=== PATIENT | female | born 1950 | race Caucasian/White ===

== ENCOUNTER 2017-04-23 16:36 | Inpatient (IN) | payer MEDICARE ==
[~2017-04-23] VITALS: Ht 172.7 cm; Wt 60.0 kg
[~2017-04-23 16:36] MED LIST: ALBU8HFA PO
[2017-04-23 17:05] LABS: BASOPHILS % (AUTO) 0 % (0-1); EOSINOPHILS % (AUTO) 0 % (0-6); HEMATOCRIT 42.6 % (35.0-45.0); HEMOGLOBIN 14.1 g/dl (12.0-16.0); LYMPHOCYTES # (AUTO) 0.3 X10'3 (1.1-4.8); LYMPHOCYTES % (AUTO) 4.6 % (21-51); MEAN CORPUSCULAR HEMOGLOBIN 30.8 PG (27.0-31.0); MEAN CORPUSCULAR HGB CONC 33.1 % (33.0-36.5); MEAN CORPUSCULAR VOLUME 93.1 FL (78-98); MEAN PLATELET VOLUME 7.2 FL (7.4-10.4); MONOCYTES # (AUTO) 0.3 X10'3 (0-0.9); MONOCYTES % (AUTO) 4.7 % (2-12); NEUTROPHILS # (AUTO) 6.7 X10'3 (1.8-7.7); NEUTROPHILS % (AUTO) 90.7 % (42-75); PLATELET COUNT 172 X10'3 (140-440); RED BLOOD COUNT 4.57 X10'6 (4.20-5.60); RED CELL DISTRIBUTION WIDTH 14.6 % (11.5-14.5); WHITE BLOOD COUNT 7.4 X10'3 (4.5-11.0)
[2017-04-23 17:15] LABS: PARTIAL THROMBOPLASTIN TIME 25 SECONDS (22-32); PROTHROMBIN TIME 10.6 SECONDS (9.0-12.0)
[2017-04-23 17:20] LABS: ALANINE AMINOTRANSFERASE 15 U/L (12-78); ALBUMIN 3.8 G/DL (3.4-5.0); ALBUMIN/GLOBULIN RATIO 0.8 (1.1-1.5); ALKALINE PHOSPHATASE 100 IU/L (46-116); ANION GAP 7 (8-16); ASPARTATE AMINO TRANSFERASE 36 U/L (10-37); BILIRUBIN,TOTAL 0.3 MG/DL (0.1-1.0); BLOOD UREA NITROGEN 8 MG/DL (7-18); BUN/CREATININE RATIO 9.5 (6.6-38.0); CHLORIDE 92 MMOL/L (99-107); CREATININE 0.84 MG/DL (0.40-0.90); GLUCOSE 166 MG/DL (70-104); SODIUM 129 MMOL/L (135-145); TOTAL CARBON DIOXIDE 30.2 MMOL/L (24-32); TOTAL PROTEIN 8.8 G/DL (6.4-8.2); eGFR 68 ML/MIN
[2017-04-23] MEDS ORDERED: albuterol 2.5 MG/3 ML nebule CONTNEB PRN (19:10)
[2017-04-23] MEDS ORDERED: methylPREDNISolone sod succ 125mg/2ml vial IV ONE (19:10)
[2017-04-23] MEDS ORDERED: ipratropium 0.5 MG/2.5ML nebule IH ONE (19:10)
[2017-04-23] MEDS ORDERED: magnesium 2GM in 50ml NS 50 ML IV ONE (19:15)
[2017-04-23 19:51] LABS: ABG BASE EXCESS 3.3 mmol/L (-2.0-3.0); ABG HCO3 26.2 mmol/L (22.0-26.0); ABG PCO2 (T) 35.3 mmHg (32.0-45.0); ABG PO2 (T) 60.5 mmHg (83-108); ALLEN'S TEST Positive; FCOHb 1.2 % (0.5-1.5); FMetHb 0.3 % (0.3-1.12); FO2Hb 89.6 % (94-100); PATIENT TEMPERATURE 37.6; RESPIRATORY RATE (OBSERVED) 26 b/min; TOTAL HEMOGLOBIN 14.3 G/dl (12.0-16.0)
[2017-04-23 20:35] LABS: CLARITY,URINE CLEAR (Clear); COLOR,URINE YELLOW (Yellow); GLUCOSE, URINE NEGATIVE (Neg); KETONES,URINE NEGATIVE (Neg); LEUKOCYTE ESTERASE ,URINE NEGATIVE (Neg); NITRITES, URINE NEGATIVE (Neg); OCCULT BLOOD,URINE MODERATE (Neg); PH,URINE 6.5 (4.8-8.0); PROTEIN,URINE NEGATIVE (Neg); UROBILINOGEN,URINE 0.2 E.U/dL (0.2-1.0)
[2017-04-23 20:40] LABS: UA COLLECTION TYPE VOIDED
[2017-04-23] MEDS ORDERED: normal saline 1000ml 1,000 ML IV ONE (20:40)
[2017-04-23 20:41] LABS: BACTERIA,URINE FEW /HPF (Neg); WBC,URINE 0-4 /HPF (0-4)
[2017-04-23 20:42] LABS: SQUAMOUS EPITHELIAL CELL,UR FEW /LPF (FEW)
[2017-04-24] MEDS ORDERED: ipratropium/albuterol 3ml nebule NEB PRN (01:05)
[2017-04-24] MEDS ORDERED: acetaminophen 325mg tablet PO PRN ×2 (01:05)
[2017-04-24] MEDS ORDERED: magnesium hydroxide 30ml (MOM) UD suspension PO PRN (01:05)
[2017-04-24] MEDS ORDERED: mag hydrox/Alum hydrox/simeth 30ml oral suspension PO PRN (01:05)
[2017-04-24] MEDS ORDERED: ondansetron/PF 4mg/2ml inj IV PRN (01:05)
[2017-04-24] MEDS: oseltamivir phos 75mg capsule PO SCH ×3 (02:18→20:42)
[2017-04-24] MEDS: methylPREDNISolone sod succ 125mg/2ml vial IV SCH ×4 (02:18→20:50)
[2017-04-24] MEDS ORDERED: metoprolol tartrate 50mg tablet PO SCH (08:00)
[2017-04-24 09:50] VITALS: BP 159/81
[2017-04-24] MEDS: metoprolol tartrate 25mg tablet PO SCH ×2 (10:22→19:44)
[2017-04-24] MEDS: diltiazem CD 180mg cap (once-daily) PO SCH (10:23)
[2017-04-24] MEDS: enoxaparin 40mg/0.4ml syringe SUBCUT SCH (10:27)
[2017-04-24] MEDS: nicotine 21mg patch - 24 hr TD SCH (10:29)
[2017-04-24 11:15] LABS: ALBUMIN 3.2 G/DL (3.4-5.0); ANION GAP 5 (8-16); BLOOD UREA NITROGEN 11 MG/DL (7-18); BUN/CREATININE RATIO 18.3 (6.6-38.0); CALCIUM 9.3 MG/DL (8.5-10.1); CHLORIDE 100 MMOL/L (99-107); GLUCOSE 162 MG/DL (70-104); POTASSIUM 4.4 MMOL/L (3.5-5.1); SODIUM 139 MMOL/L (135-145); TOTAL CARBON DIOXIDE 33.6 MMOL/L (24-32); eGFR > 90 ML/MIN
[2017-04-24 11:50] VITALS: BP 162/84
[2017-04-24] MEDS ORDERED: AMPH30CA10 PO (13:55)
[2017-04-24] MEDS ORDERED: DILT180C49 PO (13:55)
[2017-04-24] MEDS ORDERED: ALPR1TAB7 PO (13:55)
[2017-04-24] MEDS ORDERED: PANT40TA4 PO (13:55)
[2017-04-24] MEDS ORDERED: HYDR-3972 PO (13:55)
[2017-04-24] MEDS ORDERED: CITA20TA11 PO (13:55)
[2017-04-24] MEDS ORDERED: ATEN25TA8 PO (13:55)
[2017-04-24] MEDS: ALPRAZolam 0.5mg tablet PO PRN ×2 (15:14→23:31)
[2017-04-24] MEDS ORDERED: non-formulary drug (Alprazolam 1 MG) PO PRN (16:40)
[2017-04-24 19:00] VITALS: BP 191/108
[2017-04-24] MEDS: HYDROcodone/acetaminophen 10/325mg tab PO PRN (19:46)
[2017-04-24] MEDS: guaiFENesin 200 MG/10 ML oral syrup UD cup PO SCH (20:41)
[2017-04-24 23:30] VITALS: BP 146/107
[2017-04-25 00:30] VITALS: BP 165/79
[2017-04-25] MEDS: methylPREDNISolone sod succ 125mg/2ml vial IV SCH ×4 (02:00→19:27)
[2017-04-25] MEDS: HYDROcodone/acetaminophen 10/325mg tab PO PRN ×2 (02:59→19:23)
[2017-04-25] MEDS: guaiFENesin 200 MG/10 ML oral syrup UD cup PO SCH ×4 (02:59→19:22)
[2017-04-25] MEDS: ipratropium/albuterol 3ml nebule NEB SCH ×6 (05:26→23:29)
[2017-04-25 05:55] LABS: ALBUMIN 2.9 G/DL (3.4-5.0); ANION GAP 4 (8-16); BLOOD UREA NITROGEN 16 MG/DL (7-18); BUN/CREATININE RATIO 21.3 (6.6-38.0); CALCIUM 9.4 MG/DL (8.5-10.1); CHLORIDE 100 MMOL/L (99-107); CREATININE 0.75 MG/DL (0.40-0.90); GLUCOSE 180 MG/DL (70-104); POTASSIUM 4.8 MMOL/L (3.5-5.1); SODIUM 137 MMOL/L (135-145); TOTAL CARBON DIOXIDE 32.7 MMOL/L (24-32); eGFR 78 ML/MIN
[2017-04-25] MEDS ORDERED: DILTIAZEM HCL 180 MG PO SCH (07:30)
[2017-04-25 07:42] VITALS: BP 193/96
[2017-04-25] MEDS: oseltamivir phos 75mg capsule PO SCH ×2 (07:52→19:22)
[2017-04-25] MEDS: metoprolol tartrate 25mg tablet PO SCH ×2 (07:53→20:01)
[2017-04-25] MEDS: pantoprazole 40mg Tablet.DR PO SCH (07:53)
[2017-04-25] MEDS: enoxaparin 40mg/0.4ml syringe SUBCUT SCH (07:53)
[2017-04-25] MEDS: citalopram 20mg tablet PO SCH (07:53)
[2017-04-25] MEDS: diltiazem CD 180mg cap (once-daily) PO SCH (07:53)
[2017-04-25] MEDS: nicotine 21mg patch - 24 hr TD SCH (07:54)
[2017-04-25] MEDS ORDERED: pantoprazole 40mg Tablet.DR PO SCH (08:00)
[2017-04-25 08:49] VITALS: BP 139/68
[2017-04-25 12:00] VITALS: BP 152/75
[2017-04-25] MEDS ORDERED: ALPRAZolam 0.5mg tablet PO PRN (17:00)
[2017-04-25] MEDS: lisinopril 5mg tablet PO SCH (18:00)
[2017-04-25 19:00] VITALS: BP 170/74
[2017-04-26] VITALS: BP 148/84
[2017-04-26] MEDS: guaiFENesin 200 MG/10 ML oral syrup UD cup PO SCH ×3 (02:35→13:00)
[2017-04-26] MEDS: HYDROcodone/acetaminophen 10/325mg tab PO PRN (02:46)
[2017-04-26] MEDS: ipratropium/albuterol 3ml nebule NEB SCH ×3 (03:34→12:34)
[2017-04-26 06:15] LABS: ALBUMIN 3.2 G/DL (3.4-5.0); ANION GAP 9 (8-16); BLOOD UREA NITROGEN 16 MG/DL (7-18); BUN/CREATININE RATIO 21.3 (6.6-38.0); CALCIUM 9.7 MG/DL (8.5-10.1); CHLORIDE 98 MMOL/L (99-107); CREATININE 0.75 MG/DL (0.40-0.90); GLUCOSE 175 MG/DL (70-104); SODIUM 137 MMOL/L (135-145); TOTAL CARBON DIOXIDE 30.4 MMOL/L (24-32); eGFR 78 ML/MIN
[2017-04-26 07:16] VITALS: BP 149/78
[2017-04-26] MEDS: metoprolol tartrate 25mg tablet PO SCH (08:14)
[2017-04-26] MEDS: citalopram 20mg tablet PO SCH (08:14)
[2017-04-26] MEDS: lisinopril 5mg tablet PO SCH (08:15)
[2017-04-26] MEDS: diltiazem CD 180mg cap (once-daily) PO SCH (08:15)
[2017-04-26] MEDS: pantoprazole 40mg Tablet.DR PO SCH (08:15)
[2017-04-26] MEDS: oseltamivir phos 75mg capsule PO SCH (08:15)
[2017-04-26] MEDS: nicotine 21mg patch - 24 hr TD SCH (08:16)
[2017-04-26] MEDS: enoxaparin 40mg/0.4ml syringe SUBCUT SCH (08:16)
[2017-04-26] MEDS: methylPREDNISolone sod succ 125mg/2ml vial IV SCH (08:16)
[2017-04-26 11:06] VITALS: BP 131/67
[2017-04-26] MEDS ORDERED: LISI-604 PO (11:19)
[2017-04-26] MEDS ORDERED: ALBU6.7H INH (11:19)
[2017-04-26] MEDS ORDERED: TAM75C PO (11:19)
[2017-04-26] MEDS ORDERED: PRED10TA23 PO (11:19)
[2017-04-27] MEDS ORDERED: iohexol 350MG/ML 100ml bottle IV ONE (18:00)
== END 2017-04-26 13:24 | disposition home or self-care (01) | DRG 193 ==
LOC: ER 16:36 → ED HOLD 04-24 01:01 → UNDOADMIN 04-24 01:01 → SUR 3N 04-24 09:40
PROVIDERS: ADMIT Internal Medicine; ATTEND Internal Medicine
DX: J09.X2 Influenza due to identified novel influenza A virus with other respiratory manifestations (principal); J96.01 Acute respiratory failure with hypoxia; J44.1 Chronic obstructive pulmonary disease with (acute) exacerbation; E87.1 Hypo-osmolality and hyponatremia; J44.0 Chronic obstructive pulmonary disease with (acute) lower respiratory infection; J20.9 Acute bronchitis, unspecified; F41.0 Panic disorder [episodic paroxysmal anxiety]; I10 Essential (primary) hypertension; G89.29 Other chronic pain; F17.210 Nicotine dependence, cigarettes, uncomplicated; Z90.710 Acquired absence of both cervix and uterus; Z79.899 Other long term (current) drug therapy; Z88.1 Allergy status to other antibiotic agents; Z88.8 Allergy status to other drugs, medicaments and biological substances; Z71.6 Tobacco abuse counseling
CPT/HCPCS: 36415; 36600; 71045; 80048; 80053; 81001; 82803; 83605; 83880; 84145; 85018; 85025; 85610; 85730; 87040; 87070; 87502; 87503; 93005; 94640; 94760; 96365; 96375; 97110; 97116; 97161; 99285; 99406; A6258; J1650; J2930; J3475; J7030; Q9967

== ENCOUNTER 2017-04-27 15:50 | Inpatient (IN) | payer MEDICARE ==
[~2017-04-27] VITALS: Ht 172.7 cm; Wt 59.1 kg
[~2017-04-27 15:50] MED LIST changes: +ALBU6.7H INH; -ALBU8HFA PO; +ALPR1TAB7 PO; +AMPH30CA10 PO; +ATEN25TA8 PO; +CITA20TA11 PO; +DILT180C49 PO; +HYDR-3972 PO; +LISI-604 PO; +PANT40TA4 PO; +PRED10TA23 PO; +TAM75C PO
[2017-04-27] MEDS ORDERED: normal saline 1000ML IV soln IV ONE (16:00)
[2017-04-27] MEDS ORDERED: methylPREDNISolone sod succ 125mg/2ml vial IV ONE (16:10)
[2017-04-27] MEDS ORDERED: ipratropium/albuterol 3ml nebule NEB ONE (16:10)
[2017-04-27] MEDS ORDERED: magnesium 2GM in 50ml NS 50 ML IV ONE (16:10)
[2017-04-27] MEDS ORDERED: ipratropium 0.5 MG/2.5ML nebule IH ONE (16:20)
[2017-04-27 16:33] LABS: BASOPHILS % (AUTO) 0 % (0-1); EOSINOPHILS # (AUTO) 0.1 X10'3 (0-0.9); EOSINOPHILS % (AUTO) 1.2 % (0-6); HEMOGLOBIN 13.6 g/dl (12.0-16.0); LYMPHOCYTES # (AUTO) 0.8 X10'3 (1.1-4.8); LYMPHOCYTES % (AUTO) 6.5 % (21-51); MEAN CORPUSCULAR HEMOGLOBIN 30.9 PG (27.0-31.0); MEAN CORPUSCULAR HGB CONC 32.5 % (33.0-36.5); MEAN CORPUSCULAR VOLUME 95.2 FL (78-98); MEAN PLATELET VOLUME 7.4 FL (7.4-10.4); MONOCYTES # (AUTO) 0.7 X10'3 (0-0.9); MONOCYTES % (AUTO) 5.7 % (2-12); NEUTROPHILS # (AUTO) 10.4 X10'3 (1.8-7.7); NEUTROPHILS % (AUTO) 86.6 % (42-75); PLATELET COUNT 204 X10'3 (140-440); RED BLOOD COUNT 4.41 X10'6 (4.20-5.60); RED CELL DISTRIBUTION WIDTH 14.5 % (11.5-14.5)
[2017-04-27] MEDS: albuterol 2.5 MG/3 ML nebule CONTNEB PRN ×2 (16:45→19:21)
[2017-04-27 16:47] LABS: INR 1.1 INR; PARTIAL THROMBOPLASTIN TIME 21 SECONDS (22-32)
[2017-04-27 17:04] LABS: ALANINE AMINOTRANSFERASE 45 U/L (12-78); ALBUMIN 3.3 G/DL (3.4-5.0); ALBUMIN/GLOBULIN RATIO 0.8 (1.1-1.5); ALKALINE PHOSPHATASE 81 IU/L (46-116); ANION GAP 5 (8-16); ASPARTATE AMINO TRANSFERASE 42 U/L (10-37); BILIRUBIN,TOTAL 0.5 MG/DL (0.1-1.0); BLOOD UREA NITROGEN 15 MG/DL (7-18); BUN/CREATININE RATIO 25.9 (6.6-38.0); CALCIUM 9.3 MG/DL (8.5-10.1); CHLORIDE 96 MMOL/L (99-107); CREATININE 0.58 MG/DL (0.40-0.90); GLUCOSE 194 MG/DL (70-104); MAGNESIUM 1.6 MG/DL (1.5-2.4); POTASSIUM 3.4 MMOL/L (3.5-5.1); SODIUM 135 MMOL/L (135-145); TOTAL CARBON DIOXIDE 34.3 MMOL/L (24-32); TOTAL PROTEIN 7.6 G/DL (6.4-8.2); eGFR > 90 ML/MIN
[2017-04-27 17:15] LABS: D-DIMER 1.09 MG/L FEU (0-0.50)
[2017-04-27 17:16] LABS: TROPONIN I 0.43 NG/ML (0.0-0.05)
[2017-04-27] MEDS ORDERED: aspirin 325mg tablet PO ONE (17:20)
[2017-04-27] MEDS ORDERED: furosemide 10 MG/1 ML 10ml inj IV ONE (17:25)
[2017-04-27 17:59] LABS: CLARITY,URINE CLEAR (Clear); COLOR,URINE YELLOW (Yellow); GLUCOSE, URINE 100 mg/dl (Neg); KETONES,URINE NEGATIVE (Neg); LEUKOCYTE ESTERASE ,URINE NEGATIVE (Neg); NITRITES, URINE NEGATIVE (Neg); OCCULT BLOOD,URINE LARGE (Neg); PROTEIN,URINE 100 mg/dl (Neg); UROBILINOGEN,URINE 0.2 E.U/dL (0.2-1.0)
[2017-04-27 18:02] LABS: UA COLLECTION TYPE CLN CATCH MIDSTREAM
[2017-04-27 18:05] LABS: BACTERIA,URINE 4+ /HPF (Neg); SQUAMOUS EPITHELIAL CELL,UR FEW /LPF (FEW)
[2017-04-27 18:08] LABS: URINE AMPHETAMINE SCREEN POSITIVE (Neg); URINE BARBITUATE SCREEN NEGATIVE (Neg); URINE BENZODIAZEPINES SCREEN POSITIVE (Neg); URINE CANNABINOID SCREEN NEGATIVE (Neg); URINE COCAINE SCREEN NEGATIVE (Neg); URINE METHADONE SCREEN NEGATIVE (Neg); URINE OPIATE SCREEN POSITIVE (Neg); URINE PHENCYCLIDINE SCREEN NEGATIVE (Neg)
[2017-04-27] MEDS ORDERED: CefTRIAXone 2gm/D5W 50ml ADVTG 50 ML IV ONE (18:30)
[2017-04-27] MEDS ORDERED: furosemide 20 MG/2 ML vial IV ONE (18:45)
[2017-04-27] MEDS ORDERED: oseltamivir phos 75mg capsule PO ONE (19:20)
[2017-04-27 20:45] LABS: ABG BASE EXCESS 12.1 mmol/L (-2.0-3.0); ABG HCO3 37.9 mmol/L (22.0-26.0); ABG OXYGEN SATURATION 85.7 % (95-98); ABG PCO2 (T) 53.3 mmHg (32.0-45.0); ABG PO2 (T) 49.2 mmHg (83-108); ALLEN'S TEST Positive; FCOHb 1.4 % (0.5-1.5); FMetHb 0.3 % (0.3-1.12); FO2Hb 84.2 % (94-100); PATIENT TEMPERATURE 37.3; TOTAL HEMOGLOBIN 14.2 G/dl (12.0-16.0)
[2017-04-27] MEDS ORDERED: mag hydrox/Alum hydrox/simeth 30ml oral suspension PO PRN (22:00)
[2017-04-27] MEDS ORDERED: ondansetron/PF 4mg/2ml inj IV PRN (22:00)
[2017-04-27] MEDS ORDERED: magnesium hydroxide 30ml (MOM) UD suspension PO PRN (22:00)
[2017-04-27] MEDS ORDERED: acetaminophen 325mg tablet PO PRN ×2 (22:00)
[2017-04-27] MEDS ORDERED: ipratropium/albuterol 3ml nebule NEB PRN (22:00)
[2017-04-27] MEDS ORDERED: vancomycin/NS 1 GM ADD-VANTAGE 250 ML IV ONE (22:05)
[2017-04-27] MEDS ORDERED: potassium Cl 40MEQ/NS 500ml 500 ML IV PRN ×2 (22:10)
[2017-04-27] MEDS ORDERED: potassium Cl 20 mEq SR tablet PO PRN (22:10)
[2017-04-27] MEDS ORDERED: ALPRAZOLAM 0.5 MG PO PRN (22:15)
[2017-04-27] MEDS ORDERED: enoxaparin 100mg/ml syringe SUBCUT ONE (22:30)
[2017-04-27 23:00] VITALS: BP 157/81
[2017-04-27] MEDS: piperacillin/tazo 3.375gm/50ml 50 ML IV SCH (23:08)
[2017-04-27] MEDS: normal saline 1000ml 1,000 ML IV SCH (23:30)
[2017-04-27] MEDS: levoFLOXACIN-Levaquin 750MG/D5 150 ML IV SCH (23:45)
[2017-04-28] MEDS: ALPRAZolam 0.5mg tablet PO PRN ×5 (01:19→21:52)
[2017-04-28] MEDS: piperacillin/tazo 3.375gm/50ml 50 ML IV SCH ×4 (02:55→21:53)
[2017-04-28] MEDS: methylPREDNISolone sod succ 125mg/2ml vial IV SCH ×4 (02:55→21:53)
[2017-04-28 03:00] VITALS: BP 172/83
[2017-04-28] MEDS ORDERED: LORazepam 2 mg/ml vial IV ONE (04:20)
[2017-04-28 04:25] LABS: ABG BASE EXCESS 9.3 mmol/L (-2.0-3.0); ABG HCO3 32.8 mmol/L (22.0-26.0); ABG OXYGEN SATURATION 95.7 % (95-98); ABG PCO2 (T) 40.2 mmHg (32.0-45.0); ABG PH (T) 7.529 (7.350-7.450); ALLEN'S TEST Positive; FCOHb 0.5 % (0.5-1.5); FMetHb 0.3 % (0.3-1.12); FO2Hb 94.9 % (94-100); RESPIRATORY RATE (OBSERVED) 28 b/min
[2017-04-28] MEDS: HYDROcodone/acetaminophen 10/325mg tab PO PRN ×3 (04:37→21:53)
[2017-04-28 05:18] LABS: BASOPHILS % (AUTO) 0.1 % (0-1); EOSINOPHILS % (AUTO) 0 % (0-6); HEMATOCRIT 37.9 % (35.0-45.0); HEMOGLOBIN 12.3 g/dl (12.0-16.0); LYMPHOCYTES # (AUTO) 0.4 X10'3 (1.1-4.8); LYMPHOCYTES % (AUTO) 5.8 % (21-51); MEAN CORPUSCULAR HEMOGLOBIN 30.9 PG (27.0-31.0); MEAN CORPUSCULAR HGB CONC 32.6 % (33.0-36.5); MEAN CORPUSCULAR VOLUME 94.8 FL (78-98); MEAN PLATELET VOLUME 7.6 FL (7.4-10.4); MONOCYTES # (AUTO) 0.3 X10'3 (0-0.9); MONOCYTES % (AUTO) 4.9 % (2-12); NEUTROPHILS # (AUTO) 5.7 X10'3 (1.8-7.7); NEUTROPHILS % (AUTO) 89.2 % (42-75); PLATELET COUNT 165 X10'3 (140-440); RED BLOOD COUNT 3.99 X10'6 (4.20-5.60); RED CELL DISTRIBUTION WIDTH 14.3 % (11.5-14.5); WHITE BLOOD COUNT 6.4 X10'3 (4.5-11.0)
[2017-04-28 05:43] LABS: ALBUMIN 2.7 G/DL (3.4-5.0); ANION GAP 3 (8-16); BLOOD UREA NITROGEN 12 MG/DL (7-18); BUN/CREATININE RATIO 21.1 (6.6-38.0); CALCIUM 8.5 MG/DL (8.5-10.1); CHLORIDE 98 MMOL/L (99-107); CREATININE 0.57 MG/DL (0.40-0.90); GLUCOSE 143 MG/DL (70-104); MAGNESIUM 1.6 MG/DL (1.5-2.4); POTASSIUM 3.1 MMOL/L (3.5-5.1); SODIUM 138 MMOL/L (135-145); TOTAL CARBON DIOXIDE 37.5 MMOL/L (24-32); eGFR > 90 ML/MIN
[2017-04-28 06:00] VITALS: BP 152/73
[2017-04-28] MEDS ORDERED: DILTIAZEM HCL 180 MG PO SCH (07:30)
[2017-04-28] MEDS: normal saline 1000ml 1,000 ML IV SCH ×2 (07:57→17:57)
[2017-04-28] MEDS ORDERED: oseltamivir phos 75mg capsule PO SCH (08:00)
[2017-04-28] MEDS ORDERED: aspirin 325mg tablet PO SCH (08:30)
[2017-04-28] MEDS ORDERED: vancomycin/NS 1 GM ADD-VANTAGE 250 ML IV SCH ×2 (09:00→12:00)
[2017-04-28] MEDS: lisinopril 5mg tablet PO SCH (09:06)
[2017-04-28] MEDS: potassium Cl 20 mEq SR tablet PO PRN ×3 (09:06→21:52)
[2017-04-28] MEDS: citalopram 20mg tablet PO SCH (09:07)
[2017-04-28] MEDS: levoFLOXACIN-Levaquin 750MG/D5 150 ML IV SCH (09:07)
[2017-04-28] MEDS: pantoprazole 40mg Tablet.DR PO SCH (09:08)
[2017-04-28] MEDS: diltiazem CD 180mg cap (once-daily) PO SCH (09:08)
[2017-04-28] MEDS: metoprolol tartrate 25mg tablet PO SCH ×2 (09:08→21:52)
[2017-04-28] MEDS ORDERED: iohexol 350MG/ML 100ml bottle IV ONE (10:37)
[2017-04-28 11:00] VITALS: BP 164/93
[2017-04-28] MEDS: oseltamivir phos 75mg capsule PO SCH ×2 (12:15→21:54)
[2017-04-28] MEDS: enoxaparin 60mg/0.6ml syringe SUBCUT SCH ×2 (12:16→21:55)
[2017-04-28 15:00] VITALS: BP 165/91
[2017-04-28] MEDS ORDERED: nitroGLYCERIN 0.4mg SUBLingual tab SL PRN (15:30)
[2017-04-28] MEDS ORDERED: metoprolol tartrate 1mg/ml inj IV PRN (15:30)
[2017-04-28] MEDS ORDERED: regadenoson 0.4mg/5ml syringe IV PRN (15:30)
[2017-04-28] MEDS ORDERED: aminophylline 250mg/10ml inj. IV PRN (15:30)
[2017-04-28 19:00] VITALS: BP 166/85
[2017-04-28 23:00] VITALS: BP 168/116
[2017-04-29] MEDS: piperacillin/tazo 3.375gm/50ml 50 ML IV SCH ×4 (02:00→21:01)
[2017-04-29] MEDS: methylPREDNISolone sod succ 125mg/2ml vial IV SCH ×4 (02:00→21:01)
[2017-04-29 03:00] VITALS: BP 141/110
[2017-04-29] MEDS: normal saline 1000ml 1,000 ML IV SCH ×3 (03:57→21:13)
[2017-04-29 05:35] LABS: BASOPHILS % (AUTO) 0 % (0-1); EOSINOPHILS % (AUTO) 0 % (0-6); HEMATOCRIT 38.2 % (35.0-45.0); HEMOGLOBIN 12.3 g/dl (12.0-16.0); LYMPHOCYTES # (AUTO) 0.5 X10'3 (1.1-4.8); MEAN CORPUSCULAR HEMOGLOBIN 30.5 PG (27.0-31.0); MEAN CORPUSCULAR HGB CONC 32.1 % (33.0-36.5); MEAN CORPUSCULAR VOLUME 95.1 FL (78-98); MEAN PLATELET VOLUME 7.8 FL (7.4-10.4); MONOCYTES # (AUTO) 0.5 X10'3 (0-0.9); MONOCYTES % (AUTO) 5.1 % (2-12); NEUTROPHILS # (AUTO) 8.9 X10'3 (1.8-7.7); NEUTROPHILS % (AUTO) 89.9 % (42-75); PLATELET COUNT 220 X10'3 (140-440); RED BLOOD COUNT 4.01 X10'6 (4.20-5.60); RED CELL DISTRIBUTION WIDTH 14.5 % (11.5-14.5); WHITE BLOOD COUNT 9.9 X10'3 (4.5-11.0)
[2017-04-29 05:45] LABS: ALBUMIN 2.8 G/DL (3.4-5.0); ANION GAP 4 (8-16); BLOOD UREA NITROGEN 19 MG/DL (7-18); BUN/CREATININE RATIO 26.8 (6.6-38.0); CHLORIDE 100 MMOL/L (99-107); CREATININE 0.71 MG/DL (0.40-0.90); GLUCOSE 154 MG/DL (70-104); MAGNESIUM 1.9 MG/DL (1.5-2.4); POTASSIUM 4.4 MMOL/L (3.5-5.1); SODIUM 139 MMOL/L (135-145); TOTAL CARBON DIOXIDE 34.6 MMOL/L (24-32); eGFR 83 ML/MIN
[2017-04-29 06:00] VITALS: BP 159/85
[2017-04-29] MEDS: ALPRAZolam 0.5mg tablet PO PRN ×2 (07:29→17:19)
[2017-04-29] MEDS: HYDROcodone/acetaminophen 10/325mg tab PO PRN ×3 (07:30→20:06)
[2017-04-29] MEDS: levoFLOXACIN-Levaquin 750MG/D5 150 ML IV SCH (08:21)
[2017-04-29] MEDS: LACTOBACILLUS RHAMNOSUS GG 15 billion unit sprinkle caps PO SCH (08:22)
[2017-04-29] MEDS: pantoprazole 40mg Tablet.DR PO SCH (08:22)
[2017-04-29] MEDS: citalopram 20mg tablet PO SCH (08:22)
[2017-04-29] MEDS: diltiazem CD 180mg cap (once-daily) PO SCH (08:22)
[2017-04-29] MEDS: metoprolol tartrate 25mg tablet PO SCH ×2 (08:22→21:01)
[2017-04-29] MEDS: lisinopril 5mg tablet PO SCH (08:22)
[2017-04-29] MEDS: enoxaparin 60mg/0.6ml syringe SUBCUT SCH ×2 (08:23→21:00)
[2017-04-29] MEDS: oseltamivir phos 75mg capsule PO SCH ×2 (08:43→21:01)
[2017-04-29 11:00] VITALS: BP 159/85
[2017-04-29] MEDS ORDERED: VANCOMYCIN LEVEL IV NR (11:30)
[2017-04-29 15:00] VITALS: BP 183/89
[2017-04-29] MEDS ORDERED: hydrALAZINE 20mg/ml inj. IV ONE (16:45)
[2017-04-29 19:00] VITALS: BP 159/118
[2017-04-29] MEDS ORDERED: temazepam 15mg capsule PO PRN (20:30)
[2017-04-29 23:00] VITALS: BP 163/91
[2017-04-30] VITALS (14 sets, daily range): BP systolic 138–184; BP diastolic 67–129
[2017-04-30] MEDS: piperacillin/tazo 3.375gm/50ml 50 ML IV SCH ×4 (02:58→19:48)
[2017-04-30] MEDS: methylPREDNISolone sod succ 125mg/2ml vial IV SCH ×4 (02:59→19:48)
[2017-04-30] MEDS: HYDROcodone/acetaminophen 10/325mg tab PO PRN ×2 (05:54→14:54)
[2017-04-30] MEDS: ALPRAZolam 0.5mg tablet PO PRN (05:54)
[2017-04-30 06:07] LABS: BASOPHILS % (AUTO) 0.1 % (0-1); EOSINOPHILS % (AUTO) 0.5 % (0-6); HEMATOCRIT 40.1 % (35.0-45.0); HEMOGLOBIN 13.1 g/dl (12.0-16.0); LYMPHOCYTES # (AUTO) 0.5 X10'3 (1.1-4.8); LYMPHOCYTES % (AUTO) 6.4 % (21-51); MEAN CORPUSCULAR HEMOGLOBIN 30.7 PG (27.0-31.0); MEAN CORPUSCULAR HGB CONC 32.8 % (33.0-36.5); MEAN CORPUSCULAR VOLUME 93.6 FL (78-98); MEAN PLATELET VOLUME 7.5 FL (7.4-10.4); MONOCYTES # (AUTO) 0.2 X10'3 (0-0.9); MONOCYTES % (AUTO) 2.4 % (2-12); NEUTROPHILS # (AUTO) 6.8 X10'3 (1.8-7.7); NEUTROPHILS % (AUTO) 90.6 % (42-75); PLATELET COUNT 274 X10'3 (140-440); RED BLOOD COUNT 4.29 X10'6 (4.20-5.60); WHITE BLOOD COUNT 7.5 X10'3 (4.5-11.0)
[2017-04-30 06:30] LABS: ALBUMIN 2.9 G/DL (3.4-5.0); ANION GAP 6 (8-16); BLOOD UREA NITROGEN 16 MG/DL (7-18); BUN/CREATININE RATIO 28.6 (6.6-38.0); CALCIUM 8.8 MG/DL (8.5-10.1); CHLORIDE 100 MMOL/L (99-107); CREATININE 0.56 MG/DL (0.40-0.90); GLUCOSE 172 MG/DL (70-104); MAGNESIUM 1.7 MG/DL (1.5-2.4); POTASSIUM 3.6 MMOL/L (3.5-5.1); SODIUM 138 MMOL/L (135-145); TOTAL CARBON DIOXIDE 32.2 MMOL/L (24-32); eGFR > 90 ML/MIN
[2017-04-30] MEDS: diltiazem CD 180mg cap (once-daily) PO SCH (07:53)
[2017-04-30] MEDS: lisinopril 5mg tablet PO SCH (07:53)
[2017-04-30] MEDS: pantoprazole 40mg Tablet.DR PO SCH (07:54)
[2017-04-30] MEDS: enoxaparin 60mg/0.6ml syringe SUBCUT SCH ×2 (07:54→19:50)
[2017-04-30] MEDS: oseltamivir phos 75mg capsule PO SCH (07:54)
[2017-04-30] MEDS: LACTOBACILLUS RHAMNOSUS GG 15 billion unit sprinkle caps PO SCH (07:54)
[2017-04-30] MEDS: metoprolol tartrate 25mg tablet PO SCH ×2 (07:54→19:48)
[2017-04-30] MEDS: citalopram 20mg tablet PO SCH (07:54)
[2017-04-30] MEDS: normal saline 1000ml 1,000 ML IV SCH (08:03)
[2017-04-30] MEDS: levoFLOXACIN-Levaquin 750MG/D5 150 ML IV SCH (08:49)
[2017-04-30] MEDS: hydrALAZINE 20mg/ml inj. IV PRN ×2 (09:38→23:21)
[2017-04-30] MEDS ORDERED: aminophylline inj. 10 ML IV ONE (10:41)
[2017-04-30] MEDS ORDERED: regadenoson 0.4mg/5ml syringe IV ONE (10:41)
[2017-05-01] VITALS (7 sets, daily range): BP systolic 150–183; BP diastolic 73–86
[2017-05-01] MEDS: HYDROcodone/acetaminophen 10/325mg tab PO PRN ×4 (00:11→20:03)
[2017-05-01] MEDS: methylPREDNISolone sod succ 125mg/2ml vial IV SCH ×4 (01:44→20:02)
[2017-05-01] MEDS: piperacillin/tazo 3.375gm/50ml 50 ML IV SCH ×4 (01:44→20:02)
[2017-05-01] MEDS: normal saline 1000ml 1,000 ML IV SCH ×3 (02:57→15:57)
[2017-05-01 05:34] LABS: BASOPHILS % (AUTO) 0 % (0-1); EOSINOPHILS # (AUTO) 0.1 X10'3 (0-0.9); EOSINOPHILS % (AUTO) 1.4 % (0-6); HEMATOCRIT 38.2 % (35.0-45.0); HEMOGLOBIN 12.6 g/dl (12.0-16.0); LYMPHOCYTES # (AUTO) 0.4 X10'3 (1.1-4.8); LYMPHOCYTES % (AUTO) 6.5 % (21-51); MEAN CORPUSCULAR HEMOGLOBIN 31.1 PG (27.0-31.0); MEAN CORPUSCULAR VOLUME 94.3 FL (78-98); MEAN PLATELET VOLUME 7.2 FL (7.4-10.4); MONOCYTES # (AUTO) 0.3 X10'3 (0-0.9); MONOCYTES % (AUTO) 5.1 % (2-12); PLATELET COUNT 249 X10'3 (140-440); RED BLOOD COUNT 4.05 X10'6 (4.20-5.60); RED CELL DISTRIBUTION WIDTH 14.1 % (11.5-14.5); WHITE BLOOD COUNT 5.8 X10'3 (4.5-11.0)
[2017-05-01 05:38] LABS: ALBUMIN 2.8 G/DL (3.4-5.0); ANION GAP 2 (8-16); BLOOD UREA NITROGEN 16 MG/DL (7-18); BUN/CREATININE RATIO 30.2 (6.6-38.0); CALCIUM 8.6 MG/DL (8.5-10.1); CHLORIDE 100 MMOL/L (99-107); CREATININE 0.53 MG/DL (0.40-0.90); GLUCOSE 182 MG/DL (70-104); MAGNESIUM 1.7 MG/DL (1.5-2.4); POTASSIUM 3.2 MMOL/L (3.5-5.1); SODIUM 139 MMOL/L (135-145); TOTAL CARBON DIOXIDE 37.2 MMOL/L (24-32); eGFR > 90 ML/MIN
[2017-05-01] MEDS: diltiazem CD 180mg cap (once-daily) PO SCH (07:45)
[2017-05-01] MEDS: LACTOBACILLUS RHAMNOSUS GG 15 billion unit sprinkle caps PO SCH (07:45)
[2017-05-01] MEDS: metoprolol tartrate 25mg tablet PO SCH ×2 (07:45→20:03)
[2017-05-01] MEDS: enoxaparin 60mg/0.6ml syringe SUBCUT SCH ×2 (07:45→20:03)
[2017-05-01] MEDS: pantoprazole 40mg Tablet.DR PO SCH (07:46)
[2017-05-01] MEDS: lisinopril 5mg tablet PO SCH (07:46)
[2017-05-01] MEDS: citalopram 20mg tablet PO SCH (07:46)
[2017-05-01] MEDS: hydrALAZINE 20mg/ml inj. IV PRN ×2 (07:46→18:18)
[2017-05-01] MEDS ORDERED: potassium Cl 20 mEq SR tablet PO PRN (09:00)
[2017-05-01] MEDS ORDERED: potassium Cl 40MEQ/NS 500ml 500 ML IV PRN ×2 (09:00)
[2017-05-01] MEDS ORDERED: magnesium 4gm in 100ml NS 100 ML IV PRN (09:00)
[2017-05-01] MEDS ORDERED: magnesium 2GM in 50ml NS 50 ML IV PRN (09:00)
[2017-05-01] MEDS: potassium Cl 20 mEq SR tablet PO PRN ×2 (09:07→14:24)
[2017-05-01] MEDS: levoFLOXACIN-Levaquin 750MG/D5 150 ML IV SCH (09:07)
[2017-05-01] MEDS ORDERED: ATOR20TA66 PO (11:03)
[2017-05-01] MEDS ORDERED: AMOX-580 PO (11:03)
[2017-05-01] MEDS ORDERED: PRED20TA PO (11:03)
[2017-05-01] MEDS ORDERED: ASPI81TA52 PO (11:03)
[2017-05-01] MEDS ORDERED: LEVO750T46 PO (11:03)
[2017-05-01] MEDS ORDERED: lisinopril 20mg tablet PO SCH (17:45)
[2017-05-01] MEDS: lisinopril 20mg tablet PO SCH (19:09)
[2017-05-02 03:00] VITALS: BP 185/89
[2017-05-02] MEDS: methylPREDNISolone sod succ 125mg/2ml vial IV SCH ×4 (03:14→21:05)
[2017-05-02] MEDS: piperacillin/tazo 3.375gm/50ml 50 ML IV SCH ×4 (03:14→21:05)
[2017-05-02 05:07] LABS: BASOPHILS % (AUTO) 0 % (0-1); EOSINOPHILS # (AUTO) 0.1 X10'3 (0-0.9); EOSINOPHILS % (AUTO) 1.5 % (0-6); HEMATOCRIT 37.7 % (35.0-45.0); HEMOGLOBIN 12.4 g/dl (12.0-16.0); LYMPHOCYTES # (AUTO) 0.3 X10'3 (1.1-4.8); MEAN CORPUSCULAR HEMOGLOBIN 30.8 PG (27.0-31.0); MEAN CORPUSCULAR HGB CONC 32.9 % (33.0-36.5); MEAN CORPUSCULAR VOLUME 93.5 FL (78-98); MEAN PLATELET VOLUME 7.1 FL (7.4-10.4); MONOCYTES # (AUTO) 0.3 X10'3 (0-0.9); MONOCYTES % (AUTO) 4.5 % (2-12); NEUTROPHILS # (AUTO) 5.5 X10'3 (1.8-7.7); PLATELET COUNT 253 X10'3 (140-440); RED BLOOD COUNT 4.03 X10'6 (4.20-5.60); RED CELL DISTRIBUTION WIDTH 14.2 % (11.5-14.5); WHITE BLOOD COUNT 6.2 X10'3 (4.5-11.0)
[2017-05-02 05:24] LABS: ANION GAP 1 (8-16); BLOOD UREA NITROGEN 15 MG/DL (7-18); BUN/CREATININE RATIO 33.3 (6.6-38.0); CALCIUM 8.7 MG/DL (8.5-10.1); CHLORIDE 99 MMOL/L (99-107); CREATININE 0.45 MG/DL (0.40-0.90); GLUCOSE 181 MG/DL (70-104); MAGNESIUM 1.5 MG/DL (1.5-2.4); POTASSIUM 3.1 MMOL/L (3.5-5.1); SODIUM 136 MMOL/L (135-145); eGFR > 90 ML/MIN
[2017-05-02 06:00] VITALS: BP 186/73
[2017-05-02] MEDS: hydrALAZINE 20mg/ml inj. IV PRN ×2 (06:28→21:23)
[2017-05-02] MEDS: HYDROcodone/acetaminophen 10/325mg tab PO PRN ×2 (06:28→21:38)
[2017-05-02] MEDS: diltiazem CD 180mg cap (once-daily) PO SCH (08:57)
[2017-05-02] MEDS: HYDROchlorothiazide 25mg tablet PO SCH (08:58)
[2017-05-02] MEDS: citalopram 20mg tablet PO SCH (08:58)
[2017-05-02] MEDS: pantoprazole 40mg Tablet.DR PO SCH (08:58)
[2017-05-02] MEDS: enoxaparin 60mg/0.6ml syringe SUBCUT SCH ×2 (08:58→21:07)
[2017-05-02] MEDS: metoprolol tartrate 25mg tablet PO SCH ×2 (08:58→21:05)
[2017-05-02] MEDS: lisinopril 20mg tablet PO SCH (08:59)
[2017-05-02] MEDS ORDERED: dextroamphetamine/amphetamine ER 5 MG CAP.ER.24H PO SCH (09:00)
[2017-05-02] MEDS: LACTOBACILLUS RHAMNOSUS GG 15 billion unit sprinkle caps PO SCH (09:42)
[2017-05-02] MEDS ORDERED: ipratropium/albuterol 3ml nebule NEB PRN (09:45)
[2017-05-02] MEDS ORDERED: ipratropium/albuterol 3ml nebule ONE (09:54)
[2017-05-02] MEDS: levoFLOXACIN 750MG TABLET PO SCH (10:37)
[2017-05-02] MEDS: dextroamphetamine/amphetamine ER 5 MG CAP.ER.24H PO SCH (10:37)
[2017-05-02 11:00] VITALS: BP 172/85
[2017-05-02] MEDS: normal saline 1000ml 1,000 ML IV SCH ×2 (13:54→21:57)
[2017-05-02 15:00] VITALS: BP 167/63
[2017-05-02 18:30] VITALS: BP 171/113
[2017-05-02 22:00] VITALS: BP 172/94
[2017-05-03] VITALS (7 sets, daily range): BP systolic 150–197; BP diastolic 60–97
[2017-05-03] MEDS: methylPREDNISolone sod succ 125mg/2ml vial IV SCH ×3 (02:19→13:06)
[2017-05-03] MEDS: piperacillin/tazo 3.375gm/50ml 50 ML IV SCH ×3 (02:19→13:06)
[2017-05-03] MEDS: normal saline 1000ml 1,000 ML IV SCH ×3 (02:21→20:15)
[2017-05-03] MEDS: hydrALAZINE 20mg/ml inj. IV PRN ×3 (05:12→16:36)
[2017-05-03] MEDS: enoxaparin 60mg/0.6ml syringe SUBCUT SCH ×2 (08:46→20:17)
[2017-05-03] MEDS: citalopram 20mg tablet PO SCH (08:46)
[2017-05-03] MEDS: diltiazem CD 180mg cap (once-daily) PO SCH (08:46)
[2017-05-03] MEDS: lisinopril 20mg tablet PO SCH (08:47)
[2017-05-03] MEDS: pantoprazole 40mg Tablet.DR PO SCH (08:47)
[2017-05-03] MEDS: metoprolol tartrate 25mg tablet PO SCH (08:47)
[2017-05-03] MEDS: HYDROchlorothiazide 25mg tablet PO SCH (08:47)
[2017-05-03] MEDS: LACTOBACILLUS RHAMNOSUS GG 15 billion unit sprinkle caps PO SCH (08:52)
[2017-05-03] MEDS: HYDROcodone/acetaminophen 10/325mg tab PO PRN ×2 (09:00→16:38)
[2017-05-03] MEDS: potassium Cl 20 mEq SR tablet PO PRN (09:04)
[2017-05-03] MEDS ORDERED: dextroamphetamine/amphetamine ER 5 MG CAP.ER.24H PO ONE (11:00)
[2017-05-03] MEDS: levoFLOXACIN 750MG TABLET PO SCH (11:05)
[2017-05-03 11:15] LABS: BASOPHILS % (AUTO) 0.1 % (0-1); EOSINOPHILS # (AUTO) 0.1 X10'3 (0-0.9); EOSINOPHILS % (AUTO) 1.2 % (0-6); HEMATOCRIT 40.1 % (35.0-45.0); HEMOGLOBIN 13.3 g/dl (12.0-16.0); LYMPHOCYTES # (AUTO) 0.4 X10'3 (1.1-4.8); LYMPHOCYTES % (AUTO) 4.8 % (21-51); MEAN CORPUSCULAR HEMOGLOBIN 30.8 PG (27.0-31.0); MEAN CORPUSCULAR HGB CONC 33.2 % (33.0-36.5); MEAN CORPUSCULAR VOLUME 92.7 FL (78-98); MEAN PLATELET VOLUME 6.7 FL (7.4-10.4); MONOCYTES # (AUTO) 0.5 X10'3 (0-0.9); MONOCYTES % (AUTO) 5.6 % (2-12); NEUTROPHILS # (AUTO) 7.4 X10'3 (1.8-7.7); NEUTROPHILS % (AUTO) 88.3 % (42-75); PLATELET COUNT 337 X10'3 (140-440); RED BLOOD COUNT 4.33 X10'6 (4.20-5.60); WHITE BLOOD COUNT 8.4 X10'3 (4.5-11.0)
[2017-05-03 11:29] LABS: ALANINE AMINOTRANSFERASE 43 U/L (12-78); ALBUMIN 3.2 G/DL (3.4-5.0); ALBUMIN/GLOBULIN RATIO 0.9 (1.1-1.5); ALKALINE PHOSPHATASE 59 IU/L (46-116); ANION GAP 5 (8-16); ASPARTATE AMINO TRANSFERASE 32 U/L (10-37); BILIRUBIN,TOTAL 0.9 MG/DL (0.1-1.0); BLOOD UREA NITROGEN 11 MG/DL (7-18); BUN/CREATININE RATIO 18.3 (6.6-38.0); CALCIUM 8.5 MG/DL (8.5-10.1); CHLORIDE 91 MMOL/L (99-107); GLUCOSE 171 MG/DL (70-104); MAGNESIUM 1.5 MG/DL (1.5-2.4); SODIUM 134 MMOL/L (135-145); TOTAL CARBON DIOXIDE 38.4 MMOL/L (24-32); TOTAL PROTEIN 6.8 G/DL (6.4-8.2); eGFR > 90 ML/MIN
[2017-05-03 11:30] LABS: POTASSIUM 2.4 MMOL/L (3.5-5.1)
[2017-05-03] MEDS: Potassium Cl inj 40 MEQ, LIDOcaine 1% 30ml vial 5 ML in normal saline 500ml IV soln 500 ML IV PRN ×2 (13:06→20:31)
[2017-05-03] MEDS ORDERED: iohexol 300mg/ml 100ml inj. ONE (16:29)
[2017-05-03] MEDS ORDERED: olanzapine 10mg tablet PO SCH (18:50)
[2017-05-03] MEDS: cloNIDine 0.1 mg tablet PO SCH (20:16)
[2017-05-03] MEDS: metoprolol tartrate 50mg tablet PO SCH (20:16)
[2017-05-04] VITALS (10 sets, daily range): BP systolic 96–177; BP diastolic 46–90
[2017-05-04] MEDS: hydrALAZINE 20mg/ml inj. IV PRN (03:24)
[2017-05-04] MEDS: diltiazem CD 180mg cap (once-daily) PO SCH (09:35)
[2017-05-04] MEDS: enoxaparin 60mg/0.6ml syringe SUBCUT SCH (09:35)
[2017-05-04] MEDS: lisinopril 20mg tablet PO SCH (09:35)
[2017-05-04] MEDS: citalopram 20mg tablet PO SCH (09:35)
[2017-05-04] MEDS: HYDROchlorothiazide 25mg tablet PO SCH (09:35)
[2017-05-04] MEDS: LACTOBACILLUS RHAMNOSUS GG 15 billion unit sprinkle caps PO SCH (09:35)
[2017-05-04] MEDS: cloNIDine 0.1 mg tablet PO SCH ×3 (09:36→21:40)
[2017-05-04] MEDS: metoprolol tartrate 50mg tablet PO SCH (09:36)
[2017-05-04] MEDS: dextroamphetamine/amphetamine ER 5 MG CAP.ER.24H PO SCH (10:26)
[2017-05-04] MEDS: levoFLOXACIN 750MG TABLET PO SCH (10:30)
[2017-05-04] MEDS: HYDROcodone/acetaminophen 10/325mg tab PO PRN (10:37)
[2017-05-04] MEDS ORDERED: potassium Cl 20 mEq SR tablet PO PRN (11:50)
[2017-05-04] MEDS ORDERED: potassium Cl 40MEQ/NS 500ml 500 ML IV PRN ×2 (11:50)
[2017-05-04] MEDS: potassium Cl 20 mEq SR tablet PO PRN ×2 (14:08→19:33)
[2017-05-04] MEDS: normal saline 1000ml 1,000 ML IV SCH (15:32)
[2017-05-04] MEDS: heparin, porcine 5000 units/ml vial SQ SCH (19:31)
[2017-05-04] MEDS: HYDROcodone/acetaminophen 5mg/325mg tablet PO PRN (19:32)
[2017-05-04] MEDS ORDERED: magnesium 2GM in 50ml NS 50 ML IV PRN (22:25)
[2017-05-04] MEDS ORDERED: magnesium Cl slow-release 64mg tablet PO PRN (22:25)
[2017-05-04] MEDS ORDERED: magnesium 4gm in 100ml NS 100 ML IV PRN (22:25)
[2017-05-05] VITALS (7 sets, daily range): BP systolic 144–189; BP diastolic 58–87
[2017-05-05] MEDS: potassium Cl 20 mEq SR tablet PO PRN ×2 (00:25→00:59)
[2017-05-05 05:11] LABS: BASOPHILS % (AUTO) 0.1 % (0-1); EOSINOPHILS % (AUTO) 0 % (0-6); HEMATOCRIT 35.9 % (35.0-45.0); HEMOGLOBIN 12.1 g/dl (12.0-16.0); LYMPHOCYTES # (AUTO) 0.5 X10'3 (1.1-4.8); LYMPHOCYTES % (AUTO) 7.7 % (21-51); MEAN CORPUSCULAR HEMOGLOBIN 31.4 PG (27.0-31.0); MEAN CORPUSCULAR HGB CONC 33.5 % (33.0-36.5); MEAN CORPUSCULAR VOLUME 93.6 FL (78-98); MEAN PLATELET VOLUME 7.3 FL (7.4-10.4); MONOCYTES # (AUTO) 0.3 X10'3 (0-0.9); MONOCYTES % (AUTO) 4.3 % (2-12); NEUTROPHILS % (AUTO) 87.9 % (42-75); PLATELET COUNT 184 X10'3 (140-440); RED BLOOD COUNT 3.84 X10'6 (4.20-5.60); RED CELL DISTRIBUTION WIDTH 13.6 % (11.5-14.5); WHITE BLOOD COUNT 6.8 X10'3 (4.5-11.0)
[2017-05-05 05:42] LABS: ALANINE AMINOTRANSFERASE 52 U/L (12-78); ALBUMIN 2.8 G/DL (3.4-5.0); ALBUMIN/GLOBULIN RATIO 0.9 (1.1-1.5); ALKALINE PHOSPHATASE 51 IU/L (46-116); ANION GAP 2 (8-16); ASPARTATE AMINO TRANSFERASE 41 U/L (10-37); BILIRUBIN,TOTAL 0.5 MG/DL (0.1-1.0); BLOOD UREA NITROGEN 17 MG/DL (7-18); BUN/CREATININE RATIO 24.3 (6.6-38.0); CALCIUM 8.2 MG/DL (8.5-10.1); CHLORIDE 102 MMOL/L (99-107); GLUCOSE 128 MG/DL (70-104); POTASSIUM 3.6 MMOL/L (3.5-5.1); SODIUM 144 MMOL/L (135-145); TOTAL PROTEIN 5.8 G/DL (6.4-8.2); eGFR 84 ML/MIN
[2017-05-05 05:57] LABS: TOTAL CARBON DIOXIDE 40.5 MMOL/L (24-32)
[2017-05-05 06:21] LABS: MAGNESIUM 3.2 MG/DL (1.5-2.4)
[2017-05-05] MEDS: LACTOBACILLUS RHAMNOSUS GG 15 billion unit sprinkle caps PO SCH (07:31)
[2017-05-05] MEDS: citalopram 20mg tablet PO SCH (07:31)
[2017-05-05] MEDS: HYDROchlorothiazide 25mg tablet PO SCH (07:31)
[2017-05-05] MEDS: cloNIDine 0.1 mg tablet PO SCH ×3 (07:31→20:54)
[2017-05-05] MEDS: HYDROcodone/acetaminophen 5mg/325mg tablet PO PRN ×3 (07:31→19:17)
[2017-05-05] MEDS: lisinopril 20mg tablet PO SCH (07:32)
[2017-05-05] MEDS: K and/or MAG REPLACEMENT MC SCH (07:32)
[2017-05-05] MEDS: heparin, porcine 5000 units/ml vial SQ SCH ×2 (07:33→20:55)
[2017-05-05] MEDS: dextroamphetamine/amphetamine ER 5 MG CAP.ER.24H PO SCH (09:37)
[2017-05-05] MEDS: levoFLOXACIN 750MG TABLET PO SCH (11:43)
[2017-05-05] MEDS: hydrALAZINE 20mg/ml inj. IV PRN (11:45)
[2017-05-05] MEDS: normal saline 1000ml 1,000 ML IV SCH (16:32)
[2017-05-06] MEDS: normal saline 1000ml 1,000 ML IV SCH (00:51)
[2017-05-06 02:00] VITALS: BP 187/86
[2017-05-06] MEDS: hydrALAZINE 20mg/ml inj. IV PRN (02:56)
[2017-05-06 06:00] VITALS: BP 171/64
[2017-05-06] MEDS: K and/or MAG REPLACEMENT MC SCH (08:00)
[2017-05-06] MEDS: dextroamphetamine/amphetamine ER 5 MG CAP.ER.24H PO SCH (08:26)
[2017-05-06] MEDS: LACTOBACILLUS RHAMNOSUS GG 15 billion unit sprinkle caps PO SCH (08:26)
[2017-05-06] MEDS: citalopram 20mg tablet PO SCH (08:26)
[2017-05-06] MEDS: cloNIDine 0.1 mg tablet PO SCH ×3 (08:26→20:12)
[2017-05-06] MEDS: HYDROchlorothiazide 25mg tablet PO SCH (08:26)
[2017-05-06] MEDS: HYDROcodone/acetaminophen 5mg/325mg tablet PO PRN ×2 (08:27→20:12)
[2017-05-06] MEDS: heparin, porcine 5000 units/ml vial SQ SCH ×2 (08:27→19:32)
[2017-05-06] MEDS: lisinopril 20mg tablet PO SCH (08:27)
[2017-05-06 11:00] VITALS: BP 172/84
[2017-05-06 15:00] VITALS: BP 132/75
[2017-05-06 18:00] VITALS: BP 158/75
[2017-05-06] MEDS: metoprolol tartrate 25mg tablet PO SCH (19:32)
[2017-05-06 22:00] VITALS: BP 153/96
[2017-05-07 02:00] VITALS: BP 194/77
[2017-05-07] MEDS: normal saline 1000ml 1,000 ML IV SCH (02:36)
[2017-05-07 06:00] VITALS: BP 199/90
[2017-05-07] MEDS: K and/or MAG REPLACEMENT MC SCH (08:00)
[2017-05-07] MEDS: LACTOBACILLUS RHAMNOSUS GG 15 billion unit sprinkle caps PO SCH (08:10)
[2017-05-07] MEDS: cloNIDine 0.1 mg tablet PO SCH ×3 (08:10→20:08)
[2017-05-07] MEDS: HYDROchlorothiazide 25mg tablet PO SCH (08:10)
[2017-05-07] MEDS: metoprolol tartrate 25mg tablet PO SCH ×2 (08:10→20:08)
[2017-05-07] MEDS: citalopram 20mg tablet PO SCH (08:10)
[2017-05-07] MEDS: lisinopril 20mg tablet PO SCH (08:10)
[2017-05-07] MEDS: HYDROcodone/acetaminophen 5mg/325mg tablet PO PRN ×2 (08:11→20:08)
[2017-05-07] MEDS: potassium Cl 20 mEq SR tablet PO PRN (08:11)
[2017-05-07] MEDS: heparin, porcine 5000 units/ml vial SQ SCH ×2 (08:20→20:08)
[2017-05-07 11:00] VITALS: BP 109/56
[2017-05-07] MEDS: dextroamphetamine/amphetamine ER 5 MG CAP.ER.24H PO SCH (13:53)
[2017-05-07 15:00] VITALS: BP 116/62
[2017-05-07 18:00] VITALS: BP 163/92
[2017-05-07 22:00] VITALS: BP 116/71
[2017-05-08 02:00] VITALS: BP 156/83
[2017-05-08 05:30] VITALS: BP 160/89
[2017-05-08] MEDS: K and/or MAG REPLACEMENT MC SCH (07:46)
[2017-05-08] MEDS: LACTOBACILLUS RHAMNOSUS GG 15 billion unit sprinkle caps PO SCH (07:57)
[2017-05-08] MEDS: cloNIDine 0.1 mg tablet PO SCH (07:57)
[2017-05-08] MEDS: lisinopril 20mg tablet PO SCH (07:58)
[2017-05-08] MEDS: citalopram 20mg tablet PO SCH (07:58)
[2017-05-08] MEDS: metoprolol tartrate 25mg tablet PO SCH (07:58)
[2017-05-08] MEDS: HYDROchlorothiazide 25mg tablet PO SCH (07:58)
[2017-05-08] MEDS: heparin, porcine 5000 units/ml vial SQ SCH (07:59)
[2017-05-08] MEDS: dextroamphetamine/amphetamine ER 5 MG CAP.ER.24H PO SCH (08:00)
[2017-05-08] MEDS: HYDROcodone/acetaminophen 5mg/325mg tablet PO PRN (09:16)
[2017-05-08 11:00] VITALS: BP 148/73
== END 2017-05-08 13:20 | DRG 871 ==
LOC: ER 15:52 → ED HOLD 21:57 → EDBEDREQ 23:18 → PCU 3S 23:20
PROVIDERS: ADMIT Internal Medicine; ATTEND Internal Medicine
PROC: 5A09357 Assistance with Respiratory Ventilation, Less than 24 Consecutive Hours, Continuous Positive Airway Pressure (ICD-10-PCS; principal; 2017-04-27)
PROC: B32T1ZZ Computerized Tomography (CT Scan) of Left Pulmonary Artery using Low Osmolar Contrast (ICD-10-PCS; 2017-04-28)
PROC: B3201ZZ Computerized Tomography (CT Scan) of Thoracic Aorta using Low Osmolar Contrast (ICD-10-PCS; 2017-04-28)
PROC: B32S1ZZ Computerized Tomography (CT Scan) of Right Pulmonary Artery using Low Osmolar Contrast (ICD-10-PCS; 2017-04-28)
PROC: 4A02XM4 Measurement of Cardiac Total Activity, External Approach (ICD-10-PCS; 2017-04-30)
PROC: 3E073KZ Introduction of Other Diagnostic Substance into Coronary Artery, Percutaneous Approach (ICD-10-PCS; 2017-04-30)
PROC: BW281ZZ Computerized Tomography (CT Scan) of Head using Low Osmolar Contrast (ICD-10-PCS; 2017-05-03)
DX: A41.9 Sepsis, unspecified organism (principal); J96.01 Acute respiratory failure with hypoxia; I21.4 Non-ST elevation (NSTEMI) myocardial infarction; G92 Toxic encephalopathy; I50.41 Acute combined systolic (congestive) and diastolic (congestive) heart failure; J09.X1 Influenza due to identified novel influenza A virus with pneumonia; J12.89 Other viral pneumonia; I42.9 Cardiomyopathy, unspecified; J44.1 Chronic obstructive pulmonary disease with (acute) exacerbation; E87.1 Hypo-osmolality and hyponatremia; J44.0 Chronic obstructive pulmonary disease with (acute) lower respiratory infection; Z68.1 Body mass index [BMI] 19.9 or less, adult; Z99.81 Dependence on supplemental oxygen; F99 Mental disorder, not otherwise specified; E87.6 Hypokalemia; R00.1 Bradycardia, unspecified; R73.9 Hyperglycemia, unspecified; I11.0 Hypertensive heart disease with heart failure; F32.9 Major depressive disorder, single episode, unspecified; I25.10 Atherosclerotic heart disease of native coronary artery without angina pectoris; F15.10 Other stimulant abuse, uncomplicated; F17.210 Nicotine dependence, cigarettes, uncomplicated; Z90.710 Acquired absence of both cervix and uterus; Z88.1 Allergy status to other antibiotic agents; Z88.6 Allergy status to analgesic agent; Z79.899 Other long term (current) drug therapy; Z79.01 Long term (current) use of anticoagulants; Z79.82 Long term (current) use of aspirin
CPT/HCPCS: 36415; 36600; 70470; 70544; 70551; 71045; 71275; 78451; 80048; 80053; 80202; 80305; 81001; 82803; 83605; 83735; 83880; 84132; 84145; 84484; 85018; 85025; 85379; 85610; 85730; 87040; 87070; 87077; 87088; 87186; 87502; 87503; 93005; 93017; 93306; 94640; 94660; 94760; 96361; 96365; 96367; 96375; 96376; 97116; 97161; 97530; 97535; 99285; A6212; A6213; A6250; A9500; J0280; J0360; J0696; J1644; J1650; J1940; J1956; J2060; J2543; J2785; J2930; J3370; J3475; J3480; J3490; J7030; Q9967

== ENCOUNTER 2017-07-05 13:23 | Inpatient (IN) | payer MEDICARE ==
[~2017-07-05] VITALS: Ht 172.7 cm; Wt 82.9 kg
[~2017-07-05 13:23] MED LIST changes: -AMPH30CA10 PO; +ATOR20TA66 PO; -PRED10TA23 PO; -TAM75C PO; +adenosine 3mg/ml 2ml vial IV ONE; +etomidate 2mg/ml inj. ONE; +sodium chloride 0.9% 10ml vial - diluent IJ ONE
[2017-07-05 14:15] LABS: BASOPHILS % (AUTO) 0.2 % (0-1); EOSINOPHILS % (AUTO) 0 % (0-6); HEMATOCRIT 38.9 % (35.0-45.0); HEMOGLOBIN 12.9 g/dl (12.0-16.0); LYMPHOCYTES % (AUTO) 12.9 % (21-51); MEAN CORPUSCULAR HEMOGLOBIN 30.6 PG (27.0-31.0); MEAN CORPUSCULAR HGB CONC 33.1 % (33.0-36.5); MEAN CORPUSCULAR VOLUME 92.4 FL (78-98); MEAN PLATELET VOLUME 7.3 FL (7.4-10.4); MONOCYTES # (AUTO) 0.5 X10'3 (0-0.9); MONOCYTES % (AUTO) 6.2 % (2-12); NEUTROPHILS % (AUTO) 80.7 % (42-75); PLATELET COUNT 211 X10'3 (140-440); RED BLOOD COUNT 4.21 X10'6 (4.20-5.60); RED CELL DISTRIBUTION WIDTH 15.1 % (11.5-14.5); WHITE BLOOD COUNT 7.4 X10'3 (4.5-11.0)
[2017-07-05 14:30] LABS: ALANINE AMINOTRANSFERASE 23 U/L (12-78); ALBUMIN 3.7 G/DL (3.4-5.0); ALBUMIN/GLOBULIN RATIO 0.8 (1.1-1.5); ALKALINE PHOSPHATASE 89 IU/L (46-116); ANION GAP 10 (8-16); ASPARTATE AMINO TRANSFERASE 29 U/L (10-37); BILIRUBIN,TOTAL 0.4 MG/DL (0.1-1.0); BLOOD UREA NITROGEN 9 MG/DL (7-18); BUN/CREATININE RATIO 17.6 (6.6-38.0); CALCIUM 10.1 MG/DL (8.5-10.1); CHLORIDE 99 MMOL/L (99-107); CREATININE 0.51 MG/DL (0.40-0.90); GLUCOSE 148 MG/DL (70-104); POTASSIUM 4.2 MMOL/L (3.5-5.1); SODIUM 138 MMOL/L (135-145); TOTAL CARBON DIOXIDE 29.3 MMOL/L (24-32); TOTAL PROTEIN 8.3 G/DL (6.4-8.2); eGFR > 90 ML/MIN
[2017-07-05] MEDS ORDERED: dexamethasone 4mg tablet PO ONE (16:50)
[2017-07-05] MEDS ORDERED: ipratropium/albuterol 3ml nebule NEB ONE (16:50)
[2017-07-05] MEDS ORDERED: HYDROcodone/acetaminophen 10/325mg tab PO ONE (16:55)
[2017-07-05] MEDS ORDERED: LORazepam 2 mg/ml vial IV ONE (16:55)
[2017-07-05] MEDS ORDERED: ondansetron 4mg rapidly disintigrating tab PO ONE (16:55)
[2017-07-05] MEDS ORDERED: hydrALAZINE 20mg/ml inj. IV ONE (16:55)
[2017-07-05 17:36] LABS: ABG BASE EXCESS 3.8 mmol/L (-2.0-3.0); ABG HCO3 29.5 mmol/L (22.0-26.0); ABG OXYGEN SATURATION 94.4 % (95-98); ABG PCO2 (T) 48.8 mmHg (32.0-45.0); ABG PH (T) 7.399 (7.350-7.450); ABG PO2 (T) 73.8 mmHg (83-108); ALLEN'S TEST Positive; FCOHb 1.4 % (0.5-1.5); FLOW 2 L/min; FO2Hb 93.1 % (94-100); TOTAL HEMOGLOBIN 13.7 G/dl (12.0-16.0)
[2017-07-05] MEDS ORDERED: albuterol 2.5 MG/3 ML nebule CONTNEB PRN (19:00)
[2017-07-05] MEDS ORDERED: ATEN25TA PO (19:48)
[2017-07-05] MEDS ORDERED: acetaminophen 325mg tablet PO PRN ×2 (21:05)
[2017-07-05] MEDS ORDERED: ondansetron/PF 4mg/2ml inj IV PRN (21:05)
[2017-07-05] MEDS ORDERED: albuterol 2.5 MG/3 ML nebule NEB PRN (21:10)
[2017-07-05] MEDS ORDERED: ALPRAZOLAM 0.5 MG PO PRN (21:10)
[2017-07-05 21:20] LABS: CLARITY,URINE CLEAR (Clear); COLOR,URINE STRAW (Yellow); GLUCOSE, URINE NEGATIVE (Neg); KETONES,URINE NEGATIVE (Neg); LEUKOCYTE ESTERASE ,URINE NEGATIVE (Neg); NITRITES, URINE NEGATIVE (Neg); OCCULT BLOOD,URINE MODERATE (Neg); PROTEIN,URINE NEGATIVE (Neg); UROBILINOGEN,URINE 0.2 E.U/dL (0.2-1.0)
[2017-07-05 21:31] LABS: UA COLLECTION TYPE NON-SPECIFIED
[2017-07-05 21:35] LABS: TROPONIN I < 0.04 NG/ML (0.0-0.05)
[2017-07-05 21:48] LABS: BACTERIA,URINE 1+ /HPF (Neg); SQUAMOUS EPITHELIAL CELL,UR FEW /LPF (FEW); WBC,URINE 0-4 /HPF (0-4)
[2017-07-05 21:49] LABS: MUCUS STRANDS NONE SEEN /LPF (Neg)
[2017-07-05] MEDS: methylPREDNISolone sod succ 125mg/2ml vial IV SCH (23:09)
[2017-07-05] MEDS: ipratropium/albuterol 3ml nebule NEB SCH (23:21)
[2017-07-05] MEDS: levoFLOXACIN 750MG TABLET PO SCH (23:35)
[2017-07-06] MEDS: ALPRAZolam 0.5mg tablet PO PRN ×2 (01:02→08:35)
[2017-07-06] MEDS: ipratropium/albuterol 3ml nebule NEB SCH ×6 (02:39→23:25)
[2017-07-06 06:34] LABS: BASOPHILS % (AUTO) 0 % (0-1); EOSINOPHILS % (AUTO) 0.8 % (0-6); HEMATOCRIT 36.7 % (35.0-45.0); HEMOGLOBIN 12.2 g/dl (12.0-16.0); LYMPHOCYTES # (AUTO) 0.3 X10'3 (1.1-4.8); LYMPHOCYTES % (AUTO) 6.3 % (21-51); MEAN CORPUSCULAR HEMOGLOBIN 30.7 PG (27.0-31.0); MEAN CORPUSCULAR HGB CONC 33.3 % (33.0-36.5); MEAN CORPUSCULAR VOLUME 92.3 FL (78-98); MEAN PLATELET VOLUME 7.2 FL (7.4-10.4); MONOCYTES # (AUTO) 0.1 X10'3 (0-0.9); MONOCYTES % (AUTO) 2.7 % (2-12); NEUTROPHILS # (AUTO) 4.6 X10'3 (1.8-7.7); NEUTROPHILS % (AUTO) 90.2 % (42-75); PLATELET COUNT 173 X10'3 (140-440); RED BLOOD COUNT 3.98 X10'6 (4.20-5.60); RED CELL DISTRIBUTION WIDTH 15.2 % (11.5-14.5); WHITE BLOOD COUNT 5.1 X10'3 (4.5-11.0)
[2017-07-06 06:48] LABS: ALBUMIN 3.3 G/DL (3.4-5.0); ANION GAP 11 (8-16); BLOOD UREA NITROGEN 12 MG/DL (7-18); BUN/CREATININE RATIO 14.1 (6.6-38.0); CALCIUM 10.4 MG/DL (8.5-10.1); CHLORIDE 98 MMOL/L (99-107); CREATININE 0.85 MG/DL (0.40-0.90); POTASSIUM 3.8 MMOL/L (3.5-5.1); SODIUM 141 MMOL/L (135-145); TOTAL CARBON DIOXIDE 31.7 MMOL/L (24-32); eGFR 67 ML/MIN
[2017-07-06 06:51] LABS: GLUCOSE 141 MG/DL (70-104)
[2017-07-06] MEDS ORDERED: DILTIAZEM HCL 180 MG PO SCH (07:30)
[2017-07-06] MEDS: budesonide 0.5mg/2ml UD nebule IH SCH ×2 (07:46→19:54)
[2017-07-06] MEDS: lisinopril 5mg tablet PO SCH (07:51)
[2017-07-06] MEDS: diltiazem CD 180mg cap (once-daily) PO SCH (07:52)
[2017-07-06] MEDS: pantoprazole 40mg Tablet.DR PO SCH (07:52)
[2017-07-06] MEDS: methylPREDNISolone sod succ 125mg/2ml vial IV SCH ×2 (07:52→15:56)
[2017-07-06] MEDS: atenolol 25mg tablet PO SCH ×3 (07:52→20:20)
[2017-07-06] MEDS: citalopram 20mg tablet PO SCH (07:52)
[2017-07-06] MEDS: LORazepam 0.5 MG tablet PO PRN ×2 (10:40→18:29)
[2017-07-06] MEDS: HYDROcodone/acetaminophen 10/325mg tab PO PRN ×2 (11:10→18:30)
[2017-07-06 12:30] VITALS: BP 110/60
[2017-07-06 15:00] VITALS: BP 132/68
[2017-07-06 19:00] VITALS: BP 172/71
[2017-07-06] MEDS: lactobacillus rhamnosus 10,000 MMU CELLS/CAPSULE PO SCH (20:20)
[2017-07-06] MEDS: heparin, porcine 5000 units/ml vial SQ SCH (20:23)
[2017-07-06 21:30] VITALS: BP 162/93
[2017-07-06 23:00] VITALS: BP 200/97
[2017-07-07] VITALS (8 sets, daily range): BP systolic 113–175; BP diastolic 54–92
[2017-07-07] MEDS ORDERED: hydrALAZINE 20mg/ml inj. IV ONE (00:05)
[2017-07-07] MEDS: HYDROcodone/acetaminophen 10/325mg tab PO PRN (00:12)
[2017-07-07] MEDS: levoFLOXACIN 750MG TABLET PO SCH ×2 (00:13→21:12)
[2017-07-07] MEDS: methylPREDNISolone sod succ 125mg/2ml vial IV SCH ×3 (00:33→16:36)
[2017-07-07] MEDS: ipratropium/albuterol 3ml nebule NEB SCH ×2 (03:39→07:54)
[2017-07-07 04:20] LABS: ABG BASE EXCESS 3.5 mmol/L (-2.0-3.0); ABG HCO3 32.2 mmol/L (22.0-26.0); ABG OXYGEN SATURATION 91.6 % (95-98); ABG PCO2 (T) 70.1 mmHg (32.0-45.0); ABG PO2 (T) 70.2 mmHg (83-108); ALLEN'S TEST Positive; FCOHb 0.7 % (0.5-1.5); FLOW 4 L/min; FMetHb 0.3 % (0.3-1.12); FO2Hb 90.7 % (94-100); TOTAL HEMOGLOBIN 12.7 G/dl (12.0-16.0)
[2017-07-07 06:15] LABS: BASOPHILS % (AUTO) 0 % (0-1); EOSINOPHILS % (AUTO) 0 % (0-6); HEMATOCRIT 34.7 % (35.0-45.0); HEMOGLOBIN 11.6 g/dl (12.0-16.0); LYMPHOCYTES # (AUTO) 0.3 X10'3 (1.1-4.8); LYMPHOCYTES % (AUTO) 3.1 % (21-51); MEAN CORPUSCULAR HEMOGLOBIN 30.6 PG (27.0-31.0); MEAN CORPUSCULAR HGB CONC 33.3 % (33.0-36.5); MEAN CORPUSCULAR VOLUME 92.1 FL (78-98); MEAN PLATELET VOLUME 7.4 FL (7.4-10.4); MONOCYTES # (AUTO) 0.3 X10'3 (0-0.9); MONOCYTES % (AUTO) 2.9 % (2-12); NEUTROPHILS # (AUTO) 10.4 X10'3 (1.8-7.7); PLATELET COUNT 181 X10'3 (140-440); RED BLOOD COUNT 3.77 X10'6 (4.20-5.60); RED CELL DISTRIBUTION WIDTH 15.4 % (11.5-14.5)
[2017-07-07 06:19] LABS: ALBUMIN 3.2 G/DL (3.4-5.0); ANION GAP 1 (8-16); BLOOD UREA NITROGEN 24 MG/DL (7-18); CALCIUM 9.9 MG/DL (8.5-10.1); CHLORIDE 96 MMOL/L (99-107); POTASSIUM 4.4 MMOL/L (3.5-5.1); SODIUM 135 MMOL/L (135-145); TOTAL CARBON DIOXIDE 37.6 MMOL/L (24-32); eGFR > 90 ML/MIN
[2017-07-07 06:22] LABS: GLUCOSE 161 MG/DL (70-104)
[2017-07-07] MEDS: budesonide 0.5mg/2ml UD nebule IH SCH (07:54)
[2017-07-07] MEDS: atenolol 25mg tablet PO SCH ×3 (08:00→20:00)
[2017-07-07] MEDS: lactobacillus rhamnosus 10,000 MMU CELLS/CAPSULE PO SCH ×2 (09:20→21:13)
[2017-07-07] MEDS: diltiazem CD 180mg cap (once-daily) PO SCH (09:21)
[2017-07-07] MEDS: pantoprazole 40mg Tablet.DR PO SCH (09:21)
[2017-07-07] MEDS: citalopram 20mg tablet PO SCH (09:21)
[2017-07-07] MEDS: lisinopril 5mg tablet PO SCH (09:23)
[2017-07-07] MEDS: heparin, porcine 5000 units/ml vial SQ SCH ×2 (09:25→21:12)
[2017-07-07] MEDS: HYDROcodone/acetaminophen 5mg/325mg tablet PO PRN (12:15)
[2017-07-07 12:26] LABS: ABG BASE EXCESS 11.7 mmol/L (-2.0-3.0); ABG HCO3 39.6 mmol/L (22.0-26.0); ABG OXYGEN SATURATION 95.8 % (95-98); ABG PCO2 (T) 68.6 mmHg (32.0-45.0); ABG PH (T) 7.379 (7.350-7.450); ABG PO2 (T) 80.3 mmHg (83-108); ALLEN'S TEST Positive; FCOHb 0.7 % (0.5-1.5); FMetHb 0.3 % (0.3-1.12); FO2Hb 94.8 % (94-100); MINUTE VOLUME 11 L/min; RESPIRATORY RATE 16 b/min; RESPIRATORY RATE (OBSERVED) 35 b/min; TOTAL HEMOGLOBIN 12.6 G/dl (12.0-16.0)
[2017-07-07] MEDS: methylPREDNISolone sod succ/PF 40mg inj. IV SCH (21:12)
[2017-07-08] VITALS (12 sets, daily range): BP systolic 152–194; BP diastolic 59–115
[2017-07-08] MEDS ORDERED: hydrALAZINE 20mg/ml inj. IV ONE (00:05)
[2017-07-08 05:25] LABS: BASOPHILS % (AUTO) 0 % (0-1); EOSINOPHILS % (AUTO) 0 % (0-6); HEMATOCRIT 36.8 % (35.0-45.0); HEMOGLOBIN 12.2 g/dl (12.0-16.0); LYMPHOCYTES # (AUTO) 0.3 X10'3 (1.1-4.8); LYMPHOCYTES % (AUTO) 2.9 % (21-51); MEAN CORPUSCULAR HEMOGLOBIN 30.7 PG (27.0-31.0); MEAN CORPUSCULAR HGB CONC 33.1 % (33.0-36.5); MEAN CORPUSCULAR VOLUME 92.8 FL (78-98); MEAN PLATELET VOLUME 7.6 FL (7.4-10.4); MONOCYTES # (AUTO) 0.5 X10'3 (0-0.9); MONOCYTES % (AUTO) 4.4 % (2-12); NEUTROPHILS # (AUTO) 11.1 X10'3 (1.8-7.7); NEUTROPHILS % (AUTO) 92.7 % (42-75); PLATELET COUNT 231 X10'3 (140-440); RED BLOOD COUNT 3.96 X10'6 (4.20-5.60); RED CELL DISTRIBUTION WIDTH 15.2 % (11.5-14.5); WHITE BLOOD COUNT 11.9 X10'3 (4.5-11.0)
[2017-07-08 05:52] LABS: ALBUMIN 3.3 G/DL (3.4-5.0); ANION GAP 3 (8-16); BLOOD UREA NITROGEN 23 MG/DL (7-18); BUN/CREATININE RATIO 46.9 (6.6-38.0); CALCIUM 10.4 MG/DL (8.5-10.1); CHLORIDE 93 MMOL/L (99-107); CREATININE 0.49 MG/DL (0.40-0.90); POTASSIUM 4.4 MMOL/L (3.5-5.1); SODIUM 135 MMOL/L (135-145); TOTAL CARBON DIOXIDE 38.9 MMOL/L (24-32); eGFR > 90 ML/MIN
[2017-07-08 05:55] LABS: GLUCOSE 167 MG/DL (70-104)
[2017-07-08] MEDS: methylPREDNISolone sod succ/PF 40mg inj. IV SCH (07:05)
[2017-07-08] MEDS: lactobacillus rhamnosus 10,000 MMU CELLS/CAPSULE PO SCH ×2 (07:06→19:39)
[2017-07-08] MEDS: pantoprazole 40mg Tablet.DR PO SCH (07:06)
[2017-07-08] MEDS: heparin, porcine 5000 units/ml vial SQ SCH ×2 (07:06→19:42)
[2017-07-08] MEDS: lisinopril 5mg tablet PO SCH (07:06)
[2017-07-08] MEDS: citalopram 20mg tablet PO SCH (07:06)
[2017-07-08] MEDS: diltiazem CD 120mg capsule (once-daily) PO SCH (07:07)
[2017-07-08] MEDS: HYDROcodone/acetaminophen 5mg/325mg tablet PO PRN (08:47)
[2017-07-08] MEDS: atenolol 25mg tablet PO SCH ×2 (08:48→19:41)
[2017-07-08] MEDS ORDERED: hydrALAZINE 25 MG tablet PO PRN (13:15)
[2017-07-08] MEDS: LORazepam 0.5 MG tablet PO PRN ×2 (13:29→22:57)
[2017-07-08] MEDS: HYDROcodone/acetaminophen 10/325mg tab PO PRN (17:18)
[2017-07-08] MEDS ORDERED: LORazepam 0.5 MG tablet PO ONE (18:00)
[2017-07-08] MEDS: hydrALAZINE 25 MG tablet PO SCH (19:40)
[2017-07-08] MEDS ORDERED: amLODIPine 5mg tablet PO ONE (23:20)
[2017-07-08] MEDS: levoFLOXACIN 750MG TABLET PO SCH (23:47)
[2017-07-09] VITALS (8 sets, daily range): BP systolic 163–186; BP diastolic 56–78
[2017-07-09 01:14] LABS: CLARITY,URINE CLEAR (Clear); COLOR,URINE YELLOW (Yellow); GLUCOSE, URINE 250 mg/dl (Neg); KETONES,URINE NEGATIVE (Neg); LEUKOCYTE ESTERASE ,URINE NEGATIVE (Neg); NITRITES, URINE NEGATIVE (Neg); OCCULT BLOOD,URINE TRACE-INTACT (Neg); PROTEIN,URINE TRACE mg/dl (Neg)
[2017-07-09 01:16] LABS: UA COLLECTION TYPE FOLEY CATH
[2017-07-09] MEDS: hydrALAZINE 25 MG tablet PO SCH ×4 (01:55→19:35)
[2017-07-09 01:56] LABS: BACTERIA,URINE NONE SEEN /HPF (Neg); MUCUS STRANDS MODERATE /LPF (Neg); SQUAMOUS EPITHELIAL CELL,UR FEW /LPF (FEW); WBC,URINE 0-4 /HPF (0-4)
[2017-07-09] MEDS: HYDROcodone/acetaminophen 10/325mg tab PO PRN ×2 (01:56→11:24)
[2017-07-09 01:57] LABS: HYALINE CASTS 0-3 /LPF (NEGATIVE)
[2017-07-09 05:18] LABS: BASOPHILS % (AUTO) 0 % (0-1); EOSINOPHILS # (AUTO) 0.1 X10'3 (0-0.9); EOSINOPHILS % (AUTO) 1.4 % (0-6); HEMATOCRIT 36.3 % (35.0-45.0); HEMOGLOBIN 11.9 g/dl (12.0-16.0); LYMPHOCYTES # (AUTO) 0.3 X10'3 (1.1-4.8); LYMPHOCYTES % (AUTO) 3.7 % (21-51); MEAN CORPUSCULAR HEMOGLOBIN 30.6 PG (27.0-31.0); MEAN CORPUSCULAR HGB CONC 32.8 % (33.0-36.5); MEAN CORPUSCULAR VOLUME 93.3 FL (78-98); MEAN PLATELET VOLUME 7.7 FL (7.4-10.4); MONOCYTES # (AUTO) 0.7 X10'3 (0-0.9); MONOCYTES % (AUTO) 7.7 % (2-12); NEUTROPHILS # (AUTO) 8.2 X10'3 (1.8-7.7); NEUTROPHILS % (AUTO) 87.2 % (42-75); PLATELET COUNT 185 X10'3 (140-440); RED BLOOD COUNT 3.89 X10'6 (4.20-5.60); RED CELL DISTRIBUTION WIDTH 15.2 % (11.5-14.5); WHITE BLOOD COUNT 9.4 X10'3 (4.5-11.0)
[2017-07-09 05:29] LABS: ALBUMIN 3.3 G/DL (3.4-5.0); ANION GAP 2 (8-16); BLOOD UREA NITROGEN 26 MG/DL (7-18); BUN/CREATININE RATIO 60.5 (6.6-38.0); CALCIUM 10.1 MG/DL (8.5-10.1); CHLORIDE 97 MMOL/L (99-107); CREATININE 0.43 MG/DL (0.40-0.90); POTASSIUM 4.5 MMOL/L (3.5-5.1); SODIUM 138 MMOL/L (135-145); TOTAL CARBON DIOXIDE 38.8 MMOL/L (24-32); eGFR > 90 ML/MIN
[2017-07-09 05:30] LABS: GLUCOSE 147 MG/DL (70-104)
[2017-07-09] MEDS: citalopram 20mg tablet PO SCH (07:31)
[2017-07-09] MEDS: amLODIPine 5mg tablet PO SCH ×2 (07:31→19:36)
[2017-07-09] MEDS: LORazepam 0.5 MG tablet PO PRN ×2 (07:31→19:35)
[2017-07-09] MEDS: lactobacillus rhamnosus 10,000 MMU CELLS/CAPSULE PO SCH ×2 (07:31→19:35)
[2017-07-09] MEDS: diltiazem CD 120mg capsule (once-daily) PO SCH (07:31)
[2017-07-09] MEDS: pantoprazole 40mg Tablet.DR PO SCH (07:31)
[2017-07-09] MEDS: heparin, porcine 5000 units/ml vial SQ SCH ×2 (07:32→19:35)
[2017-07-09] MEDS ORDERED: lisinopril 10 MG tablet PO SCH (08:00)
[2017-07-09] MEDS: atenolol 25mg tablet PO SCH ×2 (08:00→19:36)
[2017-07-09] MEDS ORDERED: methylPREDNISolone sod succ/PF 40mg inj. IV SCH (08:00)
[2017-07-09] MEDS ORDERED: predniSONE 20 mg tablet PO SCH (14:40)
[2017-07-09] MEDS ORDERED: lisinopril 10 MG tablet PO ONE (14:40)
[2017-07-09] MEDS: ipratropium/albuterol 3ml nebule NEB SCH ×3 (15:00→23:23)
[2017-07-09 15:35] LABS: ABG BASE EXCESS 14.3 mmol/L (-2.0-3.0); ABG HCO3 43.9 mmol/L (22.0-26.0); ABG OXYGEN SATURATION 90.6 % (95-98); ABG PCO2 (T) 83.8 mmHg (32.0-45.0); ABG PH (T) 7.337 (7.350-7.450); ABG PO2 (T) 64.3 mmHg (83-108); FCOHb 0.4 % (0.5-1.5); FLOW 3 L/min; FMetHb 0.1 % (0.3-1.12); FO2Hb 90.1 % (94-100)
[2017-07-09 17:26] LABS: ABG HCO3 43.7 mmol/L (22.0-26.0); ABG OXYGEN SATURATION 88.3 % (95-98); ABG PCO2 (T) 68.1 mmHg (32.0-45.0); ABG PH (T) 7.425 (7.350-7.450); ABG PO2 (T) 57.5 mmHg (83-108); ALLEN'S TEST Negative; FCOHb 0.6 % (0.5-1.5); FMetHb 0.1 % (0.3-1.12); FO2Hb 87.7 % (94-100); MINUTE VOLUME 9 L/min; RESPIRATORY RATE 16 b/min; RESPIRATORY RATE (OBSERVED) 22 b/min; TOTAL HEMOGLOBIN 12.9 G/dl (12.0-16.0)
[2017-07-09] MEDS: lisinopril 20mg tablet PO SCH (19:35)
[2017-07-09] MEDS: methylPREDNISolone sod succ 125mg/2ml vial IV SCH (19:35)
[2017-07-09] MEDS: levoFLOXACIN 750MG TABLET PO SCH (23:14)
[2017-07-09] MEDS: HYDROcodone/acetaminophen 5mg/325mg tablet PO PRN (23:16)
[2017-07-10] VITALS (15 sets, daily range): BP systolic 61–202; BP diastolic 43–108
[2017-07-10] MEDS: hydrALAZINE 25 MG tablet PO SCH ×2 (02:00→02:07)
[2017-07-10] MEDS: methylPREDNISolone sod succ 125mg/2ml vial IV SCH ×3 (02:07→22:32)
[2017-07-10] MEDS: ipratropium/albuterol 3ml nebule NEB SCH ×6 (03:08→23:21)
[2017-07-10 06:25] LABS: ALBUMIN 3.4 G/DL (3.4-5.0); ANION GAP 2 (8-16); BLOOD UREA NITROGEN 23 MG/DL (7-18); BUN/CREATININE RATIO 53.5 (6.6-38.0); CALCIUM 10.2 MG/DL (8.5-10.1); CHLORIDE 96 MMOL/L (99-107); CREATININE 0.43 MG/DL (0.40-0.90); POTASSIUM 4.3 MMOL/L (3.5-5.1); SODIUM 140 MMOL/L (135-145); eGFR > 90 ML/MIN
[2017-07-10 06:28] LABS: GLUCOSE 157 MG/DL (70-104)
[2017-07-10 06:29] LABS: TOTAL CARBON DIOXIDE 42.2 MMOL/L (24-32)
[2017-07-10] MEDS: heparin, porcine 5000 units/ml vial SQ SCH ×2 (07:13→22:33)
[2017-07-10] MEDS: citalopram 20mg tablet PO SCH (08:00)
[2017-07-10] MEDS: atenolol 25mg tablet PO SCH ×2 (08:00→20:00)
[2017-07-10] MEDS: amLODIPine 5mg tablet PO SCH ×2 (08:00→20:00)
[2017-07-10] MEDS ORDERED: lisinopril 20mg tablet PO SCH (08:00)
[2017-07-10] MEDS: pantoprazole 40mg Tablet.DR PO SCH (08:00)
[2017-07-10] MEDS: lactobacillus rhamnosus 10,000 MMU CELLS/CAPSULE PO SCH ×2 (08:00→20:00)
[2017-07-10] MEDS: diltiazem CD 120mg capsule (once-daily) PO SCH (08:00)
[2017-07-10] MEDS: lisinopril 20mg tablet PO SCH ×2 (08:00→20:00)
[2017-07-10] MEDS: hydrALAZINE 20mg/ml inj. IV PRN (08:10)
[2017-07-10 08:16] LABS: ABG BASE EXCESS 18.3 mmol/L (-2.0-3.0); ABG HCO3 49.7 mmol/L (22.0-26.0); ABG OXYGEN SATURATION 87.4 % (95-98); ABG PCO2 (T) 100.6 mmHg (32.0-45.0); ABG PH (T) 7.312 (7.350-7.450); ABG PO2 (T) 58.3 mmHg (83-108); ALLEN'S TEST Positive; FCOHb 0.5 % (0.5-1.5); FMetHb 0.2 % (0.3-1.12); FO2Hb 86.8 % (94-100); MINUTE VOLUME 8 L/min; RESPIRATORY RATE 16 b/min; RESPIRATORY RATE (OBSERVED) 24 b/min; TOTAL HEMOGLOBIN 13.5 G/dl (12.0-16.0)
[2017-07-10 10:05] LABS: ABG BASE EXCESS 17.5 mmol/L (-2.0-3.0); ABG HCO3 46.2 mmol/L (22.0-26.0); ABG OXYGEN SATURATION 95.2 % (95-98); ABG PCO2 (T) 76.5 mmHg (32.0-45.0); ABG PH (T) 7.399 (7.350-7.450); ALLEN'S TEST Positive; FCOHb 0.5 % (0.5-1.5); FO2Hb 94.7 % (94-100); MINUTE VOLUME 10 L/min; RESPIRATORY RATE 22 b/min; RESPIRATORY RATE (OBSERVED) 26 b/min; TOTAL HEMOGLOBIN 13.1 G/dl (12.0-16.0)
[2017-07-10] MEDS: LORazepam 0.5 MG tablet PO PRN (11:50)
[2017-07-10] MEDS ORDERED: adenosine 3mg/ml 2ml vial IV ONE (14:45)
[2017-07-10] MEDS ORDERED: amiodarone 150mg/dext, iso-os 100 ML IV ONE ×2 (14:58→15:00)
[2017-07-10] MEDS: amiodarone/D5 450MG/250ML BAG 250 ML IV SCH ×3 (15:36→23:15)
[2017-07-10] MEDS ORDERED: vancomycin inj 1,250 MG in normal saline 250ml IV soln 250 ML IV ONE (17:23)
[2017-07-10 20:00] LABS: ABG OXYGEN SATURATION 90.7 % (95-98); ABG PCO2 (T) 127.7 mmHg (32.0-45.0); ABG PH (T) 7.241 (7.350-7.450); ABG PO2 (T) 66.7 mmHg (83-108); ALLEN'S TEST Positive; FCOHb 0.4 % (0.5-1.5); FMetHb 0.1 % (0.3-1.12); FO2Hb 90.2 % (94-100); PATIENT TEMPERATURE 36.6; RESPIRATORY RATE 22 b/min; TOTAL HEMOGLOBIN 13.7 G/dl (12.0-16.0)
[2017-07-10] MEDS ORDERED: MIDAZolam 5mg/ml 2ml vial ONE (20:37)
[2017-07-10] MEDS ORDERED: FENTANYL-0.9 % NACL/PF 100 ML IV PRN (21:05)
[2017-07-10] MEDS ORDERED: ipratropium/albuterol 3ml nebule NEB PRN (21:05)
[2017-07-10] MEDS ORDERED: midazolam 100mg in NS 100ml 100 ML IV PRN (21:05)
[2017-07-10] MEDS ORDERED: midazolam 2 mg/2 ml injection IV ONE (21:05)
[2017-07-10] MEDS ORDERED: fentaNYL/PF 50MCG/1 ML 2ML syringe IV PRN (21:05)
[2017-07-10 22:00] LABS: ABG BASE EXCESS 12.1 mmol/L (-2.0-3.0); ABG HCO3 41.4 mmol/L (22.0-26.0); ABG PCO2 (T) 77.3 mmHg (32.0-45.0); ABG PH (T) 7.345 (7.350-7.450); ABG PO2 (T) 48.5 mmHg (83-108); ALLEN'S TEST Positive; FCOHb 0.5 % (0.5-1.5); FMetHb 0.1 % (0.3-1.12); FO2Hb 83.5 % (94-100); MINUTE VOLUME 8 L/min; PATIENT TEMPERATURE 36.6; PEEP 5 cm H2O; RESPIRATORY RATE 20 b/min; RESPIRATORY RATE (OBSERVED) 20 b/min; TIDAL VOLUME 350 mL; TOTAL HEMOGLOBIN 13.5 G/dl (12.0-16.0)
[2017-07-10] MEDS ORDERED: normal saline 1000ml 1,000 ML IVB ONE (22:01)
[2017-07-10] MEDS: midazolam 100mg in NS 100ml 100 ML IV PRN (22:11)
[2017-07-10] MEDS ORDERED: etomidate 2mg/ml inj. IV ONE (22:20)
[2017-07-10] MEDS: levoFLOXACIN 750MG TABLET PO SCH (22:32)
[2017-07-10] MEDS ORDERED: ipratropium/albuterol 3ml nebule NEB SCH (23:00)
[2017-07-11] VITALS (23 sets, daily range): BP systolic 98–152; BP diastolic 52–78
[2017-07-11] MEDS: methylPREDNISolone sod succ 125mg/2ml vial IV SCH ×4 (02:39→19:36)
[2017-07-11] MEDS: normal saline 1000ml 1,000 ML IV SCH ×3 (02:40→18:45)
[2017-07-11] MEDS: ipratropium/albuterol 3ml nebule NEB SCH ×6 (03:28→23:13)
[2017-07-11 03:43] LABS: ABG BASE EXCESS 13.5 mmol/L (-2.0-3.0); ABG HCO3 41.1 mmol/L (22.0-26.0); ABG OXYGEN SATURATION 99.6 % (95-98); ABG PCO2 (T) 68.4 mmHg (32.0-45.0); ABG PH (T) 7.397 (7.350-7.450); ABG PO2 (T) 316.5 mmHg (83-108); ALLEN'S TEST Positive; FCOHb 0.1 % (0.5-1.5); FMetHb 0.2 % (0.3-1.12); FO2Hb 99.3 % (94-100); MINUTE VOLUME 8 L/min; PEEP 5 cm H2O; RESPIRATORY RATE 20 b/min; RESPIRATORY RATE (OBSERVED) 20 b/min; TIDAL VOLUME 350 mL; TOTAL HEMOGLOBIN 12.2 G/dl (12.0-16.0)
[2017-07-11 04:40] LABS: BASOPHILS % (AUTO) 0 % (0-1); EOSINOPHILS % (AUTO) 0 % (0-6); HEMATOCRIT 34.7 % (35.0-45.0); HEMOGLOBIN 11.3 g/dl (12.0-16.0); LYMPHOCYTES # (AUTO) 0.2 X10'3 (1.1-4.8); LYMPHOCYTES % (AUTO) 1.6 % (21-51); MEAN CORPUSCULAR HEMOGLOBIN 30.2 PG (27.0-31.0); MEAN CORPUSCULAR HGB CONC 32.6 % (33.0-36.5); MEAN CORPUSCULAR VOLUME 92.6 FL (78-98); MONOCYTES # (AUTO) 1.1 X10'3 (0-0.9); MONOCYTES % (AUTO) 8.6 % (2-12); NEUTROPHILS # (AUTO) 11.9 X10'3 (1.8-7.7); NEUTROPHILS % (AUTO) 89.8 % (42-75); PLATELET COUNT 155 X10'3 (140-440); RED BLOOD COUNT 3.75 X10'6 (4.20-5.60); RED CELL DISTRIBUTION WIDTH 15.1 % (11.5-14.5); WHITE BLOOD COUNT 13.2 X10'3 (4.5-11.0)
[2017-07-11 04:59] LABS: ALBUMIN 2.6 G/DL (3.4-5.0); ANION GAP 5 (8-16); BLOOD UREA NITROGEN 34 MG/DL (7-18); BUN/CREATININE RATIO 33.7 (6.6-38.0); CALCIUM 9.3 MG/DL (8.5-10.1); CHLORIDE 100 MMOL/L (99-107); CREATININE 1.01 MG/DL (0.40-0.90); GLUCOSE 197 MG/DL (70-104); MAGNESIUM 1.7 MG/DL (1.5-2.4); PHOSPHORUS 1.6 MG/DL (2.3-4.5); POTASSIUM 3.9 MMOL/L (3.5-5.1); SODIUM 143 MMOL/L (135-145); TOTAL CARBON DIOXIDE 38.1 MMOL/L (24-32); eGFR 55 ML/MIN
[2017-07-11] MEDS: vancomycin/NS 1 GM ADD-VANTAGE 250 ML IV SCH ×2 (05:28→19:01)
[2017-07-11] MEDS: citalopram 20mg tablet PO SCH (08:00)
[2017-07-11] MEDS: atenolol 25mg tablet PO SCH ×2 (08:00→19:37)
[2017-07-11] MEDS: lactobacillus rhamnosus 10,000 MMU CELLS/CAPSULE PO SCH ×2 (08:00→19:37)
[2017-07-11] MEDS: lisinopril 20mg tablet PO SCH ×2 (08:00→19:37)
[2017-07-11] MEDS: heparin, porcine 5000 units/ml vial SQ SCH ×2 (08:00→19:37)
[2017-07-11] MEDS: pantoprazole 40mg Tablet.DR PO SCH (08:00)
[2017-07-11] MEDS: diltiazem CD 120mg capsule (once-daily) PO SCH (08:00)
[2017-07-11] MEDS: amLODIPine 5mg tablet PO SCH ×2 (08:00→19:37)
[2017-07-11] MEDS: amiodarone/D5 450MG/250ML BAG 250 ML IV SCH (16:03)
[2017-07-11 17:13] LABS: SODIUM,URINE RANDOM < 15 MEQ/L
[2017-07-11 17:14] LABS: CLARITY,URINE CLOUDY (Clear); COLOR,URINE YELLOW (Yellow); GLUCOSE, URINE 100 mg/dl (Neg); KETONES,URINE NEGATIVE (Neg); LEUKOCYTE ESTERASE ,URINE TRACE (Neg); NITRITES, URINE NEGATIVE (Neg); OCCULT BLOOD,URINE LARGE (Neg); PH,URINE 5.5 (4.8-8.0); PROTEIN,URINE 30 mg/dl (Neg); UROBILINOGEN,URINE 0.2 E.U/dL (0.2-1.0)
[2017-07-11 17:16] LABS: UA COLLECTION TYPE FOLEY CATH
[2017-07-11 18:05] LABS: UA EOSINOPHILS NO EOS /HPF
[2017-07-11 18:20] LABS: SQUAMOUS EPITHELIAL CELL,UR MODERATE /LPF (FEW)
[2017-07-11 18:21] LABS: BACTERIA,URINE 2+ /HPF (Neg); HYALINE CASTS 0-3 /LPF (NEGATIVE); MUCUS STRANDS MODERATE /LPF (Neg)
[2017-07-11 18:22] LABS: RENAL CELLS, URINE FEW /HPF
[2017-07-11 18:23] LABS: RBC,URINE 50-100 /HPF (0-2)
[2017-07-11] MEDS ORDERED: acetaminophen 325mg/10.15ml oral unit dose solution PO PRN (20:50)
[2017-07-11] MEDS: levoFLOXACIN 750MG TABLET PO SCH (22:38)
[2017-07-11] MEDS: FENTANYL-0.9 % NACL/PF 100 ML IV PRN (22:42)
[2017-07-11] MEDS ORDERED: normal saline 500ml IV soln 500 ML IV ONE (23:30)
[2017-07-11] MEDS ORDERED: insulin Lispro (HumaLOG) vial - multi-dose SQ SCH (23:30)
[2017-07-11] MEDS ORDERED: glucagon, human recombinant 1mg kit SUBCUT PRN (23:30)
[2017-07-11] MEDS ORDERED: MESSAGE TO PHARMACY PO ONE (23:30)
[2017-07-11] MEDS ORDERED: dextrose 50%-water 50ml dispensing syringe IV PRN ×2 (23:30)
[2017-07-11] MEDS ORDERED: dextrose ORAL solution 15 GM/59 ML bottle PO PRN ×2 (23:30)
[2017-07-11 23:53] LABS: HEMOGLOBIN A1C 6.3 % (4.5-6.2)
[2017-07-12] VITALS (24 sets, daily range): BP systolic 78–157; BP diastolic 49–94
[2017-07-12] MEDS: normal saline 1000ml 1,000 ML IV SCH ×2 (00:25→22:28)
[2017-07-12] MEDS: mineral oil/petrolatum ophthal oint EACHEYE SCH ×4 (02:00→20:08)
[2017-07-12] MEDS: methylPREDNISolone sod succ 125mg/2ml vial IV SCH ×4 (02:15→20:07)
[2017-07-12] MEDS: amiodarone/D5 450MG/250ML BAG 250 ML IV SCH ×2 (02:17→18:21)
[2017-07-12] MEDS ORDERED: insulin regular, human vial - multi-dose ONE (02:37)
[2017-07-12] MEDS: insulin regular, human vial - multi-dose SQ SCH ×4 (03:00→20:05)
[2017-07-12] MEDS: ipratropium/albuterol 3ml nebule NEB SCH ×6 (03:05→23:08)
[2017-07-12 04:05] LABS: ABG BASE EXCESS 8.1 mmol/L (-2.0-3.0); ABG HCO3 32.9 mmol/L (22.0-26.0); ABG OXYGEN SATURATION 85.5 % (95-98); ABG PCO2 (T) 45.3 mmHg (32.0-45.0); ABG PH (T) 7.476 (7.350-7.450); ABG PO2 (T) 46.5 mmHg (83-108); ALLEN'S TEST Positive; FCOHb 0.2 % (0.5-1.5); FMetHb 0.3 % (0.3-1.12); FO2Hb 85.1 % (94-100); MINUTE VOLUME 8 L/min; PATIENT TEMPERATURE 36.1; PEEP 5 cm H2O; RESPIRATORY RATE 20 b/min; RESPIRATORY RATE (OBSERVED) 20 b/min; TIDAL VOLUME 350 mL; TOTAL HEMOGLOBIN 10.6 G/dl (12.0-16.0)
[2017-07-12] MEDS: vancomycin/NS 1 GM ADD-VANTAGE 250 ML IV SCH ×2 (06:13→18:08)
[2017-07-12 06:53] LABS: ALBUMIN 1.9 G/DL (3.4-5.0); ANION GAP 4 (8-16); BLOOD UREA NITROGEN 49 MG/DL (7-18); BUN/CREATININE RATIO 35.5 (6.6-38.0); CALCIUM 9.1 MG/DL (8.5-10.1); CHLORIDE 105 MMOL/L (99-107); CREATININE 1.38 MG/DL (0.40-0.90); GLUCOSE 171 MG/DL (70-104); POTASSIUM 3.5 MMOL/L (3.5-5.1); SODIUM 142 MMOL/L (135-145); TOTAL CARBON DIOXIDE 32.7 MMOL/L (24-32); eGFR 38 ML/MIN
[2017-07-12 06:56] LABS: BASOPHILS % (AUTO) 0 % (0-1); EOSINOPHILS # (AUTO) 0.1 X10'3 (0-0.9); EOSINOPHILS % (AUTO) 0.8 % (0-6); HEMATOCRIT 30.6 % (35.0-45.0); HEMOGLOBIN 10.1 g/dl (12.0-16.0); LYMPHOCYTES # (AUTO) 0.2 X10'3 (1.1-4.8); LYMPHOCYTES % (AUTO) 2.7 % (21-51); MEAN CORPUSCULAR HEMOGLOBIN 30.4 PG (27.0-31.0); MEAN CORPUSCULAR HGB CONC 33.2 % (33.0-36.5); MEAN CORPUSCULAR VOLUME 91.7 FL (78-98); MEAN PLATELET VOLUME 8.6 FL (7.4-10.4); MONOCYTES # (AUTO) 0.4 X10'3 (0-0.9); MONOCYTES % (AUTO) 4.8 % (2-12); NEUTROPHILS # (AUTO) 8.2 X10'3 (1.8-7.7); NEUTROPHILS % (AUTO) 91.7 % (42-75); PLATELET COUNT 121 X10'3 (140-440); RED BLOOD COUNT 3.34 X10'6 (4.20-5.60); RED CELL DISTRIBUTION WIDTH 15.7 % (11.5-14.5); WHITE BLOOD COUNT 8.9 X10'3 (4.5-11.0)
[2017-07-12] MEDS: lisinopril 20mg tablet PO SCH ×2 (08:00→20:00)
[2017-07-12] MEDS: diltiazem CD 120mg capsule (once-daily) PO SCH (08:00)
[2017-07-12] MEDS: pantoprazole 40mg Tablet.DR PO SCH (08:00)
[2017-07-12] MEDS: amLODIPine 5mg tablet PO SCH (08:00)
[2017-07-12 08:13] LABS: MAGNESIUM 1.6 MG/DL (1.5-2.4); PHOSPHORUS 1.6 MG/DL (2.3-4.5)
[2017-07-12] MEDS: atenolol 25mg tablet PO SCH (08:26)
[2017-07-12] MEDS: lactobacillus rhamnosus 10,000 MMU CELLS/CAPSULE PO SCH ×2 (08:26→20:08)
[2017-07-12] MEDS: heparin, porcine 5000 units/ml vial SQ SCH ×2 (08:26→20:08)
[2017-07-12] MEDS: citalopram 20mg tablet PO SCH (08:26)
[2017-07-12] MEDS: midazolam 100mg in NS 100ml 100 ML IV PRN (09:23)
[2017-07-12] MEDS ORDERED: acetaminophen 325mg tablet OGT PRN ×2 (09:29)
[2017-07-12] MEDS ORDERED: amLODIPine 5mg tablet OGT SCH (09:30)
[2017-07-12] MEDS ORDERED: acetaminophen 325mg/10.15ml oral unit dose solution OGT PRN (09:30)
[2017-07-12] MEDS ORDERED: normal saline 1000ml 1,000 ML IV ONE ×2 (10:45→16:05)
[2017-07-12] MEDS: diltiazem 30mg tablet OGT SCH ×2 (14:00→20:00)
[2017-07-12] MEDS: NORepinephrine 8mg/ 250ml NS 250 ML IV PRN (16:16)
[2017-07-12] MEDS ORDERED: VANCOMYCIN LEVEL IV NR (17:30)
[2017-07-12 17:57] LABS: ALBUMIN 1.8 G/DL (3.4-5.0); ANION GAP 4 (8-16); BLOOD UREA NITROGEN 49 MG/DL (7-18); BUN/CREATININE RATIO 37.4 (6.6-38.0); CALCIUM 9.1 MG/DL (8.5-10.1); CHLORIDE 106 MMOL/L (99-107); CREATININE 1.31 MG/DL (0.40-0.90); GLUCOSE 196 MG/DL (70-104); POTASSIUM 3.8 MMOL/L (3.5-5.1); SODIUM 141 MMOL/L (135-145); TOTAL CARBON DIOXIDE 31.4 MMOL/L (24-32); eGFR 41 ML/MIN
[2017-07-12 18:01] LABS: VANCOMYCIN,TROUGH 21.6 UG/ML (6.0-14.0)
[2017-07-12] MEDS: FENTANYL-0.9 % NACL/PF 100 ML IV PRN (18:21)
[2017-07-12] MEDS: atenolol 25mg tablet OGT SCH (20:00)
[2017-07-12] MEDS: famotidine/PF 10 mg/ml inj IV SCH (20:07)
[2017-07-12] MEDS: insulin glargine (Lantus) pen - multi-dose SQ SCH (21:28)
[2017-07-12] MEDS: levoFLOXACIN 750MG TABLET PO SCH (22:27)
[2017-07-13] VITALS (24 sets, daily range): BP systolic 80–170; BP diastolic 44–79
[2017-07-13] MEDS: diltiazem 30mg tablet OGT SCH ×4 (02:00→20:00)
[2017-07-13] MEDS: insulin regular, human vial - multi-dose SQ SCH ×3 (02:22→20:32)
[2017-07-13] MEDS: methylPREDNISolone sod succ 125mg/2ml vial IV SCH ×4 (02:23→20:34)
[2017-07-13] MEDS: mineral oil/petrolatum ophthal oint EACHEYE SCH ×4 (02:24→20:37)
[2017-07-13 04:01] LABS: ABG BASE EXCESS 1.1 mmol/L (-2.0-3.0); ABG HCO3 28.1 mmol/L (22.0-26.0); ABG OXYGEN SATURATION 94.1 % (95-98); ABG PCO2 (T) 56.5 mmHg (32.0-45.0); ABG PH (T) 7.314 (7.350-7.450); ALLEN'S TEST Positive; FO2Hb 94.1 % (94-100); MINUTE VOLUME 8 L/min; PATIENT TEMPERATURE 36.9; PEEP 5 cm H2O; RESPIRATORY RATE 20 b/min; RESPIRATORY RATE (OBSERVED) 20 b/min; TIDAL VOLUME 350 mL; TOTAL HEMOGLOBIN 10.9 G/dl (12.0-16.0)
[2017-07-13] MEDS: ipratropium/albuterol 3ml nebule NEB SCH ×6 (04:02→23:23)
[2017-07-13] MEDS: normal saline 1000ml 1,000 ML IV SCH ×2 (04:05→14:05)
[2017-07-13 04:23] LABS: BASOPHILS % (AUTO) 0 % (0-1); EOSINOPHILS # (AUTO) 0.2 X10'3 (0-0.9); EOSINOPHILS % (AUTO) 1.1 % (0-6); HEMATOCRIT 31.7 % (35.0-45.0); HEMOGLOBIN 10.1 g/dl (12.0-16.0); LYMPHOCYTES # (AUTO) 0.3 X10'3 (1.1-4.8); LYMPHOCYTES % (AUTO) 1.4 % (21-51); MEAN CORPUSCULAR HEMOGLOBIN 29.7 PG (27.0-31.0); MEAN CORPUSCULAR VOLUME 92.8 FL (78-98); MEAN PLATELET VOLUME 7.9 FL (7.4-10.4); MONOCYTES # (AUTO) 0.5 X10'3 (0-0.9); MONOCYTES % (AUTO) 2.5 % (2-12); NEUTROPHILS # (AUTO) 19.2 X10'3 (1.8-7.7); PLATELET COUNT 220 X10'3 (140-440); RED BLOOD COUNT 3.41 X10'6 (4.20-5.60); WHITE BLOOD COUNT 20.3 X10'3 (4.5-11.0)
[2017-07-13 04:37] LABS: ALANINE AMINOTRANSFERASE 22 U/L (12-78); ALBUMIN 1.8 G/DL (3.4-5.0); ALBUMIN/GLOBULIN RATIO 0.5 (1.1-1.5); ALKALINE PHOSPHATASE 53 IU/L (46-116); ANION GAP 5 (8-16); ASPARTATE AMINO TRANSFERASE 26 U/L (10-37); BILIRUBIN,TOTAL 0.2 MG/DL (0.1-1.0); BLOOD UREA NITROGEN 51 MG/DL (7-18); BUN/CREATININE RATIO 40.8 (6.6-38.0); CALCIUM 9.5 MG/DL (8.5-10.1); CHLORIDE 107 MMOL/L (99-107); CHOL/HDL RATIO 3.6 (0.00-4.99); CHOLESTEROL 134 MG/DL (0-200); CREATININE 1.25 MG/DL (0.40-0.90); GLUCOSE 175 MG/DL (70-104); HDL CHOLESTEROL 37 MG/DL (35-60); LDL CHOLESTEROL 61 MG/DL (50-100); POTASSIUM 4.2 MMOL/L (3.5-5.1); PREALBUMIN 10.3 MG/DL (19-36); SODIUM 142 MMOL/L (135-145); TOTAL CARBON DIOXIDE 30.1 MMOL/L (24-32); TOTAL PROTEIN 5.6 G/DL (6.4-8.2); TRIGLYCERIDES 132 MG/DL (20-135); eGFR 43 ML/MIN
[2017-07-13] MEDS: vancomycin/NS 1 GM ADD-VANTAGE 250 ML IV SCH ×2 (05:47→18:42)
[2017-07-13] MEDS: famotidine/PF 10 mg/ml inj IV SCH ×2 (08:00→20:35)
[2017-07-13] MEDS: lisinopril 20mg tablet PO SCH ×2 (08:00→20:00)
[2017-07-13] MEDS: atorvastatin 20mg tablet PO SCH (09:12)
[2017-07-13] MEDS: aspirin 325mg tablet PO SCH (09:12)
[2017-07-13] MEDS: atenolol 25mg tablet OGT SCH ×2 (09:12→20:00)
[2017-07-13] MEDS: citalopram 20mg tablet OGT SCH (09:12)
[2017-07-13] MEDS: heparin, porcine 5000 units/ml vial SQ SCH ×2 (09:12→20:36)
[2017-07-13] MEDS: lactobacillus rhamnosus 10,000 MMU CELLS/CAPSULE PO SCH ×2 (09:13→20:37)
[2017-07-13] MEDS: NORepinephrine 8mg/ 250ml NS 250 ML IV PRN (09:14)
[2017-07-13] MEDS: amiodarone/D5 450MG/250ML BAG 250 ML IV SCH (11:15)
[2017-07-13] MEDS: FENTANYL-0.9 % NACL/PF 100 ML IV PRN ×2 (15:12→22:08)
[2017-07-13] MEDS: insulin glargine (Lantus) pen - multi-dose SQ SCH (20:34)
[2017-07-13] MEDS: levoFLOXACIN 750MG TABLET PO SCH (22:41)
[2017-07-14] VITALS (24 sets, daily range): BP systolic 106–185; BP diastolic 65–94
[2017-07-14] MEDS: amiodarone/D5 450MG/250ML BAG 250 ML IV SCH (00:54)
[2017-07-14] MEDS: normal saline 1000ml 1,000 ML IV SCH ×3 (00:54→23:15)
[2017-07-14] MEDS: diltiazem 30mg tablet OGT SCH ×4 (02:00→20:00)
[2017-07-14] MEDS: mineral oil/petrolatum ophthal oint EACHEYE SCH ×4 (02:38→19:58)
[2017-07-14] MEDS: methylPREDNISolone sod succ 125mg/2ml vial IV SCH ×4 (02:38→19:59)
[2017-07-14] MEDS: insulin regular, human vial - multi-dose SQ SCH ×4 (02:40→21:01)
[2017-07-14] MEDS: ipratropium/albuterol 3ml nebule NEB SCH ×6 (03:46→23:07)
[2017-07-14 03:53] LABS: ALANINE AMINOTRANSFERASE 24 U/L (12-78); ALBUMIN 1.8 G/DL (3.4-5.0); ALBUMIN/GLOBULIN RATIO 0.5 (1.1-1.5); ALKALINE PHOSPHATASE 42 IU/L (46-116); ANION GAP 4 (8-16); ASPARTATE AMINO TRANSFERASE 19 U/L (10-37); BILIRUBIN,TOTAL 0.2 MG/DL (0.1-1.0); BLOOD UREA NITROGEN 54 MG/DL (7-18); BUN/CREATININE RATIO 45.4 (6.6-38.0); CALCIUM 9.3 MG/DL (8.5-10.1); CHLORIDE 107 MMOL/L (99-107); CREATININE 1.19 MG/DL (0.40-0.90); GLUCOSE 183 MG/DL (70-104); POTASSIUM 4.8 MMOL/L (3.5-5.1); SODIUM 140 MMOL/L (135-145); TOTAL CARBON DIOXIDE 29.1 MMOL/L (24-32); TOTAL PROTEIN 5.5 G/DL (6.4-8.2); eGFR 46 ML/MIN
[2017-07-14 03:58] LABS: BASOPHILS % (AUTO) 0 % (0-1); EOSINOPHILS % (AUTO) 0 % (0-6); HEMATOCRIT 29.6 % (35.0-45.0); HEMOGLOBIN 9.7 g/dl (12.0-16.0); LYMPHOCYTES # (AUTO) 0.2 X10'3 (1.1-4.8); LYMPHOCYTES % (AUTO) 1.2 % (21-51); MEAN CORPUSCULAR HGB CONC 32.7 % (33.0-36.5); MEAN CORPUSCULAR VOLUME 91.7 FL (78-98); MEAN PLATELET VOLUME 7.3 FL (7.4-10.4); MONOCYTES # (AUTO) 0.4 X10'3 (0-0.9); MONOCYTES % (AUTO) 2.7 % (2-12); NEUTROPHILS # (AUTO) 14.8 X10'3 (1.8-7.7); NEUTROPHILS % (AUTO) 96.1 % (42-75); PLATELET COUNT 202 X10'3 (140-440); RED BLOOD COUNT 3.23 X10'6 (4.20-5.60); RED CELL DISTRIBUTION WIDTH 16.1 % (11.5-14.5); WHITE BLOOD COUNT 15.4 X10'3 (4.5-11.0)
[2017-07-14 04:06] LABS: ABG BASE EXCESS 0.1 mmol/L (-2.0-3.0); ABG HCO3 26.8 mmol/L (22.0-26.0); ABG PCO2 (T) 53.3 mmHg (32.0-45.0); ABG PH (T) 7.319 (7.350-7.450); ABG PO2 (T) 49.4 mmHg (83-108); ALLEN'S TEST Positive; FCOHb 0.2 % (0.5-1.5); FMetHb 0.3 % (0.3-1.12); FO2Hb 82.6 % (94-100); MINUTE VOLUME 9 L/min; PATIENT TEMPERATURE 36.9; PEEP 5 cm H2O; RESPIRATORY RATE 22 b/min; RESPIRATORY RATE (OBSERVED) 22 b/min; TIDAL VOLUME 350 mL; TOTAL HEMOGLOBIN 10.6 G/dl (12.0-16.0)
[2017-07-14] MEDS: vancomycin/NS 1 GM ADD-VANTAGE 250 ML IV SCH ×2 (05:43→19:03)
[2017-07-14] MEDS: lisinopril 20mg tablet PO SCH ×2 (08:00→20:00)
[2017-07-14] MEDS: famotidine/PF 10 mg/ml inj IV SCH ×2 (08:00→21:34)
[2017-07-14] MEDS: atorvastatin 20mg tablet PO SCH (08:00)
[2017-07-14 08:13] LABS: MAGNESIUM 1.8 MG/DL (1.5-2.4); PHOSPHORUS 1.9 MG/DL (2.3-4.5)
[2017-07-14 08:15] LABS: ABG BASE EXCESS -2.4 mmol/L (-2.0-3.0); ABG HCO3 24.6 mmol/L (22.0-26.0); ABG OXYGEN SATURATION 89.7 % (95-98); ABG PCO2 (T) 52.6 mmHg (32.0-45.0); ABG PH (T) 7.288 (7.350-7.450); ABG PO2 (T) 61.3 mmHg (83-108); ALLEN'S TEST Positive; FCOHb 0.3 % (0.5-1.5); FMetHb 0.3 % (0.3-1.12); FO2Hb 89.2 % (94-100); MINUTE VOLUME 10 L/min; PEEP 5 cm H2O; RESPIRATORY RATE 22 b/min; TIDAL VOLUME 350 mL; TOTAL HEMOGLOBIN 10.7 G/dl (12.0-16.0)
[2017-07-14] MEDS: heparin, porcine 5000 units/ml vial SQ SCH ×2 (08:58→19:59)
[2017-07-14] MEDS: atenolol 25mg tablet OGT SCH ×2 (08:58→20:00)
[2017-07-14] MEDS: lactobacillus rhamnosus 10,000 MMU CELLS/CAPSULE PO SCH ×2 (08:59→19:59)
[2017-07-14] MEDS: aspirin 325mg tablet PO SCH (08:59)
[2017-07-14] MEDS: citalopram 20mg tablet OGT SCH (08:59)
[2017-07-14] MEDS: midazolam 100mg in NS 100ml 100 ML IV PRN (09:54)
[2017-07-14 11:11] LABS: ABG BASE EXCESS -1.2 mmol/L (-2.0-3.0); ABG HCO3 25.4 mmol/L (22.0-26.0); ABG OXYGEN SATURATION 88.8 % (95-98); ABG PCO2 (T) 51.8 mmHg (32.0-45.0); ABG PH (T) 7.309 (7.350-7.450); ABG PO2 (T) 59.3 mmHg (83-108); ALLEN'S TEST Positive; FCOHb 0.5 % (0.5-1.5); FMetHb 0.3 % (0.3-1.12); FO2Hb 88.1 % (94-100); PEEP 5 cm H2O; RESPIRATORY RATE 24 b/min; TIDAL VOLUME 350 mL; TOTAL HEMOGLOBIN 10.8 G/dl (12.0-16.0)
[2017-07-14] MEDS: FENTANYL-0.9 % NACL/PF 100 ML IV PRN (15:59)
[2017-07-14] MEDS: insulin glargine (Lantus) pen - multi-dose SQ SCH (21:02)
[2017-07-15] VITALS (25 sets, daily range): BP systolic 106–180; BP diastolic 63–84
[2017-07-15] MEDS: diltiazem 30mg tablet OGT SCH ×4 (02:00→19:20)
[2017-07-15] MEDS: mineral oil/petrolatum ophthal oint EACHEYE SCH ×4 (02:20→19:20)
[2017-07-15] MEDS: methylPREDNISolone sod succ 125mg/2ml vial IV SCH ×4 (02:20→19:19)
[2017-07-15] MEDS: insulin regular, human vial - multi-dose SQ SCH ×3 (02:30→20:41)
[2017-07-15 03:04] LABS: BASOPHILS % (AUTO) 0 % (0-1); EOSINOPHILS # (AUTO) 0.2 X10'3 (0-0.9); EOSINOPHILS % (AUTO) 1.3 % (0-6); HEMATOCRIT 29.3 % (35.0-45.0); HEMOGLOBIN 9.5 g/dl (12.0-16.0); LYMPHOCYTES # (AUTO) 0.3 X10'3 (1.1-4.8); MEAN CORPUSCULAR HEMOGLOBIN 29.9 PG (27.0-31.0); MEAN CORPUSCULAR HGB CONC 32.4 % (33.0-36.5); MEAN CORPUSCULAR VOLUME 92.2 FL (78-98); MEAN PLATELET VOLUME 7.1 FL (7.4-10.4); MONOCYTES # (AUTO) 0.5 X10'3 (0-0.9); MONOCYTES % (AUTO) 3.8 % (2-12); NEUTROPHILS # (AUTO) 12.8 X10'3 (1.8-7.7); NEUTROPHILS % (AUTO) 92.9 % (42-75); PLATELET COUNT 169 X10'3 (140-440); RED BLOOD COUNT 3.18 X10'6 (4.20-5.60); RED CELL DISTRIBUTION WIDTH 16.1 % (11.5-14.5); WHITE BLOOD COUNT 13.8 X10'3 (4.5-11.0)
[2017-07-15 03:23] LABS: ALANINE AMINOTRANSFERASE 22 U/L (12-78); ALBUMIN 1.8 G/DL (3.4-5.0); ALBUMIN/GLOBULIN RATIO 0.5 (1.1-1.5); ALKALINE PHOSPHATASE 41 IU/L (46-116); ANION GAP 5 (8-16); ASPARTATE AMINO TRANSFERASE 14 U/L (10-37); BILIRUBIN,TOTAL 0.2 MG/DL (0.1-1.0); BLOOD UREA NITROGEN 57 MG/DL (7-18); BUN/CREATININE RATIO 49.1 (6.6-38.0); CALCIUM 9.4 MG/DL (8.5-10.1); CHLORIDE 110 MMOL/L (99-107); CREATININE 1.16 MG/DL (0.40-0.90); GLUCOSE 158 MG/DL (70-104); POTASSIUM 4.8 MMOL/L (3.5-5.1); SODIUM 142 MMOL/L (135-145); TOTAL CARBON DIOXIDE 27.3 MMOL/L (24-32); TOTAL PROTEIN 5.2 G/DL (6.4-8.2); eGFR 47 ML/MIN
[2017-07-15] MEDS: ipratropium/albuterol 3ml nebule NEB SCH ×6 (03:25→23:12)
[2017-07-15] MEDS: FENTANYL-0.9 % NACL/PF 100 ML IV PRN ×2 (03:28→21:59)
[2017-07-15] MEDS: midazolam 100mg in NS 100ml 100 ML IV PRN (03:29)
[2017-07-15 03:46] LABS: ABG BASE EXCESS -0.6 mmol/L (-2.0-3.0); ABG HCO3 24.5 mmol/L (22.0-26.0); ABG OXYGEN SATURATION 94.2 % (95-98); ABG PCO2 (T) 42.8 mmHg (32.0-45.0); ABG PH (T) 7.378 (7.350-7.450); ABG PO2 (T) 73.5 mmHg (83-108); ALLEN'S TEST Positive; FCOHb 0.2 % (0.5-1.5); FMetHb 0.3 % (0.3-1.12); FO2Hb 93.7 % (94-100); MINUTE VOLUME 10 L/min; PATIENT TEMPERATURE 37.3; PEEP 5 cm H2O; RESPIRATORY RATE 24 b/min; RESPIRATORY RATE (OBSERVED) 24 b/min; TIDAL VOLUME 400 mL; TOTAL HEMOGLOBIN 10.6 G/dl (12.0-16.0)
[2017-07-15] MEDS ORDERED: VANCOMYCIN LEVEL IV NR (05:30)
[2017-07-15] MEDS: vancomycin/NS 1 GM ADD-VANTAGE 250 ML IV SCH ×2 (06:00→19:19)
[2017-07-15 06:12] LABS: ALBUMIN 1.7 G/DL (3.4-5.0); ANION GAP 7 (8-16); BLOOD UREA NITROGEN 55 MG/DL (7-18); BUN/CREATININE RATIO 48.7 (6.6-38.0); CALCIUM 9.4 MG/DL (8.5-10.1); CHLORIDE 110 MMOL/L (99-107); CREATININE 1.13 MG/DL (0.40-0.90); GLUCOSE 168 MG/DL (70-104); POTASSIUM 4.8 MMOL/L (3.5-5.1); SODIUM 143 MMOL/L (135-145); TOTAL CARBON DIOXIDE 26.1 MMOL/L (24-32); eGFR 48 ML/MIN
[2017-07-15 06:15] LABS: VANCOMYCIN,TROUGH 29.6 UG/ML (6.0-14.0)
[2017-07-15] MEDS: amiodarone/D5 450MG/250ML BAG 250 ML IV SCH (07:43)
[2017-07-15] MEDS: atenolol 25mg tablet OGT SCH ×2 (07:43→19:19)
[2017-07-15] MEDS: lactobacillus rhamnosus 10,000 MMU CELLS/CAPSULE PO SCH ×2 (07:43→19:20)
[2017-07-15] MEDS: citalopram 20mg tablet OGT SCH (07:44)
[2017-07-15] MEDS: heparin, porcine 5000 units/ml vial SQ SCH ×2 (07:44→19:21)
[2017-07-15] MEDS: atorvastatin 20mg tablet PO SCH (07:44)
[2017-07-15] MEDS: normal saline 1000ml 1,000 ML IV SCH ×2 (07:45→16:08)
[2017-07-15] MEDS: famotidine/PF 10 mg/ml inj IV SCH ×2 (07:45→19:32)
[2017-07-15] MEDS: aspirin 325mg tablet PO SCH (07:47)
[2017-07-15] MEDS: lisinopril 20mg tablet PO SCH ×2 (08:00→19:20)
[2017-07-15] MEDS ORDERED: midazolam 2 mg/2 ml injection IV ONE (16:10)
[2017-07-15] MEDS: insulin glargine (Lantus) pen - multi-dose SQ SCH (20:42)
[2017-07-16] VITALS (24 sets, daily range): BP systolic 85–164; BP diastolic 45–97
[2017-07-16] MEDS: mineral oil/petrolatum ophthal oint EACHEYE SCH ×4 (02:00→20:10)
[2017-07-16] MEDS: normal saline 1000ml 1,000 ML IV SCH ×3 (02:05→13:30)
[2017-07-16] MEDS: diltiazem 30mg tablet OGT SCH ×4 (03:07→20:11)
[2017-07-16] MEDS: methylPREDNISolone sod succ 125mg/2ml vial IV SCH ×4 (03:07→20:11)
[2017-07-16 03:17] LABS: BASOPHILS % (AUTO) 0 % (0-1); EOSINOPHILS # (AUTO) 0.2 X10'3 (0-0.9); EOSINOPHILS % (AUTO) 1.1 % (0-6); HEMATOCRIT 30.3 % (35.0-45.0); HEMOGLOBIN 9.8 g/dl (12.0-16.0); LYMPHOCYTES # (AUTO) 0.8 X10'3 (1.1-4.8); LYMPHOCYTES % (AUTO) 3.4 % (21-51); MEAN CORPUSCULAR HEMOGLOBIN 29.8 PG (27.0-31.0); MEAN CORPUSCULAR HGB CONC 32.2 % (33.0-36.5); MEAN CORPUSCULAR VOLUME 92.6 FL (78-98); MEAN PLATELET VOLUME 7.5 FL (7.4-10.4); MONOCYTES # (AUTO) 0.8 X10'3 (0-0.9); MONOCYTES % (AUTO) 3.6 % (2-12); NEUTROPHILS # (AUTO) 20.4 X10'3 (1.8-7.7); NEUTROPHILS % (AUTO) 91.9 % (42-75); PLATELET COUNT 213 X10'3 (140-440); RED BLOOD COUNT 3.27 X10'6 (4.20-5.60); RED CELL DISTRIBUTION WIDTH 16.1 % (11.5-14.5); WHITE BLOOD COUNT 22.2 X10'3 (4.5-11.0)
[2017-07-16 03:36] LABS: ALANINE AMINOTRANSFERASE 28 U/L (12-78); ALBUMIN 1.9 G/DL (3.4-5.0); ALBUMIN/GLOBULIN RATIO 0.6 (1.1-1.5); ALKALINE PHOSPHATASE 43 IU/L (46-116); ANION GAP 5 (8-16); ASPARTATE AMINO TRANSFERASE 22 U/L (10-37); BILIRUBIN,TOTAL 0.3 MG/DL (0.1-1.0); BLOOD UREA NITROGEN 58 MG/DL (7-18); BUN/CREATININE RATIO 55.2 (6.6-38.0); CALCIUM 9.2 MG/DL (8.5-10.1); CHLORIDE 111 MMOL/L (99-107); CREATININE 1.05 MG/DL (0.40-0.90); GLUCOSE 98 MG/DL (70-104); MAGNESIUM 1.7 MG/DL (1.5-2.4); PHOSPHORUS 2.7 MG/DL (2.3-4.5); POTASSIUM 4.8 MMOL/L (3.5-5.1); SODIUM 142 MMOL/L (135-145); TOTAL CARBON DIOXIDE 26.2 MMOL/L (24-32); TOTAL PROTEIN 5.2 G/DL (6.4-8.2); eGFR 53 ML/MIN
[2017-07-16] MEDS: ipratropium/albuterol 3ml nebule NEB SCH ×6 (03:49→22:51)
[2017-07-16 04:15] LABS: ABG BASE EXCESS -1.5 mmol/L (-2.0-3.0); ABG HCO3 23.6 mmol/L (22.0-26.0); ABG OXYGEN SATURATION 93.6 % (95-98); ABG PH (T) 7.386 (7.350-7.450); ABG PO2 (T) 66.7 mmHg (83-108); ALLEN'S TEST Positive; FCOHb 0.3 % (0.5-1.5); FMetHb 0.3 % (0.3-1.12); MINUTE VOLUME 11 L/min; PATIENT TEMPERATURE 36.3; PEEP 5 cm H2O; RESPIRATORY RATE 24 b/min; RESPIRATORY RATE (OBSERVED) 24 b/min; TIDAL VOLUME 400 mL; TOTAL HEMOGLOBIN 10.5 G/dl (12.0-16.0)
[2017-07-16 05:28] LABS: ANISOCYTOSIS 1+; PLATELET ESTIMATE NORMAL; TOTAL CELLS COUNTED 100
[2017-07-16] MEDS: citalopram 20mg tablet OGT SCH (07:37)
[2017-07-16] MEDS: aspirin 325mg tablet PO SCH (07:38)
[2017-07-16] MEDS: heparin, porcine 5000 units/ml vial SQ SCH ×2 (07:38→20:14)
[2017-07-16] MEDS: atorvastatin 20mg tablet PO SCH (07:38)
[2017-07-16] MEDS: lactobacillus rhamnosus 10,000 MMU CELLS/CAPSULE PO SCH ×2 (07:38→20:12)
[2017-07-16] MEDS: famotidine/PF 10 mg/ml inj IV SCH ×2 (07:41→20:10)
[2017-07-16] MEDS: atenolol 25mg tablet OGT SCH ×2 (08:00→20:12)
[2017-07-16] MEDS: lisinopril 20mg tablet PO SCH ×2 (08:00→20:12)
[2017-07-16] MEDS: insulin regular, human vial - multi-dose SQ SCH ×3 (08:37→21:18)
[2017-07-16] MEDS ORDERED: aspirin 81mg tablet.DR PO ONE (09:15)
[2017-07-16] MEDS: dexmedetomidine inj. 400 MCG in normal saline 100ml IV soln 100 ML IV PRN (11:17)
[2017-07-16] MEDS: midazolam 100mg in NS 100ml 100 ML IV PRN (11:18)
[2017-07-16] MEDS: FENTANYL-0.9 % NACL/PF 100 ML IV PRN (17:00)
[2017-07-16] MEDS: vancomycin/NS 1 GM ADD-VANTAGE 250 ML IV SCH (20:10)
[2017-07-16] MEDS: insulin glargine (Lantus) pen - multi-dose SQ SCH (21:17)
[2017-07-17] VITALS (24 sets, daily range): BP systolic 94–161; BP diastolic 46–77
[2017-07-17] MEDS: FENTANYL-0.9 % NACL/PF 100 ML IV PRN ×3 (01:13→19:40)
[2017-07-17] MEDS: normal saline 1000ml 1,000 ML IV SCH ×3 (01:14→21:16)
[2017-07-17] MEDS: diltiazem 30mg tablet OGT SCH ×4 (02:00→21:04)
[2017-07-17] MEDS: mineral oil/petrolatum ophthal oint EACHEYE SCH ×4 (02:17→21:03)
[2017-07-17] MEDS: insulin regular, human vial - multi-dose SQ SCH ×4 (02:21→21:16)
[2017-07-17] MEDS: methylPREDNISolone sod succ 125mg/2ml vial IV SCH ×4 (02:22→21:04)
[2017-07-17] MEDS: ipratropium/albuterol 3ml nebule NEB SCH ×6 (03:38→23:16)
[2017-07-17 04:01] LABS: ABG BASE EXCESS -1.4 mmol/L (-2.0-3.0); ABG HCO3 23.5 mmol/L (22.0-26.0); ABG OXYGEN SATURATION 92.8 % (95-98); ABG PCO2 (T) 38.9 mmHg (32.0-45.0); ABG PH (T) 7.396 (7.350-7.450); ALLEN'S TEST Positive; FCOHb 0.3 % (0.5-1.5); FMetHb 0.3 % (0.3-1.12); FO2Hb 92.2 % (94-100); MINUTE VOLUME 10 L/min; PATIENT TEMPERATURE 36.3; PEEP 5 cm H2O; RESPIRATORY RATE 24 b/min; RESPIRATORY RATE (OBSERVED) 24 b/min; TIDAL VOLUME 400 mL; TOTAL HEMOGLOBIN 9.6 G/dl (12.0-16.0)
[2017-07-17 05:26] LABS: BASOPHILS % (AUTO) 0 % (0-1); EOSINOPHILS % (AUTO) 0 % (0-6); HEMATOCRIT 26.9 % (35.0-45.0); HEMOGLOBIN 8.9 g/dl (12.0-16.0); LYMPHOCYTES # (AUTO) 0.2 X10'3 (1.1-4.8); LYMPHOCYTES % (AUTO) 0.9 % (21-51); MEAN CORPUSCULAR HEMOGLOBIN 29.9 PG (27.0-31.0); MEAN CORPUSCULAR HGB CONC 32.9 % (33.0-36.5); MEAN CORPUSCULAR VOLUME 90.9 FL (78-98); MEAN PLATELET VOLUME 7.3 FL (7.4-10.4); MONOCYTES # (AUTO) 0.4 X10'3 (0-0.9); MONOCYTES % (AUTO) 2.2 % (2-12); NEUTROPHILS # (AUTO) 17.7 X10'3 (1.8-7.7); NEUTROPHILS % (AUTO) 96.9 % (42-75); PLATELET COUNT 185 X10'3 (140-440); RED BLOOD COUNT 2.97 X10'6 (4.20-5.60); WHITE BLOOD COUNT 18.3 X10'3 (4.5-11.0)
[2017-07-17 05:54] LABS: ALANINE AMINOTRANSFERASE 27 U/L (12-78); ALBUMIN 1.6 G/DL (3.4-5.0); ALBUMIN/GLOBULIN RATIO 0.5 (1.1-1.5); ALKALINE PHOSPHATASE 37 IU/L (46-116); ANION GAP 8 (8-16); ASPARTATE AMINO TRANSFERASE 15 U/L (10-37); BILIRUBIN,TOTAL 0.2 MG/DL (0.1-1.0); BLOOD UREA NITROGEN 60 MG/DL (7-18); BUN/CREATININE RATIO 55.6 (6.6-38.0); CALCIUM 9.1 MG/DL (8.5-10.1); CHLORIDE 111 MMOL/L (99-107); CREATININE 1.08 MG/DL (0.40-0.90); GLUCOSE 120 MG/DL (70-104); MAGNESIUM 1.9 MG/DL (1.5-2.4); PHOSPHORUS 2.9 MG/DL (2.3-4.5); POTASSIUM 4.6 MMOL/L (3.5-5.1); SODIUM 143 MMOL/L (135-145); TOTAL CARBON DIOXIDE 23.8 MMOL/L (24-32); TOTAL PROTEIN 4.7 G/DL (6.4-8.2); eGFR 51 ML/MIN
[2017-07-17] MEDS ORDERED: aspirin 81mg tablet.DR PO SCH (08:00)
[2017-07-17] MEDS: lisinopril 20mg tablet PO SCH ×2 (08:00→21:05)
[2017-07-17] MEDS: atenolol 25mg tablet OGT SCH ×2 (08:00→21:05)
[2017-07-17] MEDS: citalopram 20mg tablet OGT SCH (08:03)
[2017-07-17] MEDS: atorvastatin 20mg tablet PO SCH (08:03)
[2017-07-17] MEDS: heparin, porcine 5000 units/ml vial SQ SCH (08:03)
[2017-07-17] MEDS: lactobacillus rhamnosus 10,000 MMU CELLS/CAPSULE PO SCH ×2 (08:04→21:05)
[2017-07-17] MEDS: famotidine/PF 10 mg/ml inj IV SCH ×2 (08:05→21:03)
[2017-07-17] MEDS ORDERED: aspirin 81mg tab.chew PO ONE (08:25)
[2017-07-17] MEDS: midazolam 100mg in NS 100ml 100 ML IV PRN (09:21)
[2017-07-17] MEDS: QUEtiapine 25mg tablet PO SCH (13:26)
[2017-07-17] MEDS: methylnaltrexone br 12mg/0.6ml inj***SubQ only SQ SCH (13:27)
[2017-07-17] MEDS: vancomycin/NS 1 GM ADD-VANTAGE 250 ML IV SCH (19:37)
[2017-07-17] MEDS: enoxaparin 80mg/0.8ml syringe SUBCUT SCH (21:07)
[2017-07-17] MEDS: insulin glargine (Lantus) pen - multi-dose SQ SCH (21:13)
[2017-07-17] MEDS: NORepinephrine 8mg/ 250ml NS 250 ML IV PRN (21:37)
[2017-07-18] VITALS (25 sets, daily range): BP systolic 112–171; BP diastolic 51–81
[2017-07-18] MEDS: mineral oil/petrolatum ophthal oint EACHEYE SCH ×4 (02:36→20:42)
[2017-07-18] MEDS: methylPREDNISolone sod succ 125mg/2ml vial IV SCH ×4 (02:37→20:38)
[2017-07-18] MEDS: diltiazem 30mg tablet OGT SCH ×4 (02:37→20:39)
[2017-07-18] MEDS: FENTANYL-0.9 % NACL/PF 100 ML IV PRN ×2 (02:38→08:48)
[2017-07-18] MEDS: insulin regular, human vial - multi-dose SQ SCH (02:41)
[2017-07-18] MEDS: ipratropium/albuterol 3ml nebule NEB SCH ×6 (03:14→22:39)
[2017-07-18 03:20] LABS: BASOPHILS % (AUTO) 0 % (0-1); EOSINOPHILS # (AUTO) 0.2 X10'3 (0-0.9); EOSINOPHILS % (AUTO) 1.6 % (0-6); HEMATOCRIT 26.3 % (35.0-45.0); HEMOGLOBIN 8.6 g/dl (12.0-16.0); LYMPHOCYTES # (AUTO) 0.2 X10'3 (1.1-4.8); LYMPHOCYTES % (AUTO) 1.6 % (21-51); MEAN CORPUSCULAR HEMOGLOBIN 29.6 PG (27.0-31.0); MEAN CORPUSCULAR HGB CONC 32.7 % (33.0-36.5); MEAN CORPUSCULAR VOLUME 90.7 FL (78-98); MEAN PLATELET VOLUME 7.2 FL (7.4-10.4); MONOCYTES # (AUTO) 0.2 X10'3 (0-0.9); MONOCYTES % (AUTO) 1.8 % (2-12); NEUTROPHILS # (AUTO) 10.9 X10'3 (1.8-7.7); PLATELET COUNT 164 X10'3 (140-440); RED CELL DISTRIBUTION WIDTH 15.9 % (11.5-14.5); WHITE BLOOD COUNT 11.5 X10'3 (4.5-11.0)
[2017-07-18 03:30] LABS: ABG BASE EXCESS -1.7 mmol/L (-2.0-3.0); ABG HCO3 21.3 mmol/L (22.0-26.0); ABG PCO2 (T) 29.1 mmHg (32.0-45.0); ABG PO2 (T) 72.1 mmHg (83-108); ALLEN'S TEST Positive; FCOHb 0.3 % (0.5-1.5); FMetHb 0.3 % (0.3-1.12); FO2Hb 94.4 % (94-100); MINUTE VOLUME 10 L/min; PATIENT TEMPERATURE 36.3; PEEP 5 cm H2O; RESPIRATORY RATE 24 b/min; RESPIRATORY RATE (OBSERVED) 24 b/min; TIDAL VOLUME 400 mL; TOTAL HEMOGLOBIN 10.1 G/dl (12.0-16.0)
[2017-07-18 03:34] LABS: ALANINE AMINOTRANSFERASE 33 U/L (12-78); ALBUMIN 1.6 G/DL (3.4-5.0); ALBUMIN/GLOBULIN RATIO 0.6 (1.1-1.5); ALKALINE PHOSPHATASE 34 IU/L (46-116); ANION GAP 8 (8-16); ASPARTATE AMINO TRANSFERASE 20 U/L (10-37); BILIRUBIN,TOTAL 0.3 MG/DL (0.1-1.0); BLOOD UREA NITROGEN 58 MG/DL (7-18); BUN/CREATININE RATIO 56.9 (6.6-38.0); CALCIUM 8.9 MG/DL (8.5-10.1); CHLORIDE 111 MMOL/L (99-107); CREATININE 1.02 MG/DL (0.40-0.90); GLUCOSE 132 MG/DL (70-104); MAGNESIUM 1.9 MG/DL (1.5-2.4); PHOSPHORUS 2.5 MG/DL (2.3-4.5); POTASSIUM 4.3 MMOL/L (3.5-5.1); SODIUM 143 MMOL/L (135-145); TOTAL CARBON DIOXIDE 24.1 MMOL/L (24-32); TOTAL PROTEIN 4.4 G/DL (6.4-8.2); eGFR 54 ML/MIN
[2017-07-18] MEDS: dexmedetomidine inj. 400 MCG in normal saline 100ml IV soln 100 ML IV PRN ×2 (08:29→17:37)
[2017-07-18] MEDS: HYDROcodone/acetaminophen 5mg/325mg tablet PO PRN (08:30)
[2017-07-18] MEDS: LORazepam 0.5 MG tablet PO PRN ×2 (08:30→20:39)
[2017-07-18] MEDS: enoxaparin 80mg/0.8ml syringe SUBCUT SCH ×2 (08:31→20:40)
[2017-07-18] MEDS: lisinopril 20mg tablet PO SCH ×2 (08:32→20:41)
[2017-07-18] MEDS: famotidine/PF 10 mg/ml inj IV SCH ×2 (08:34→20:43)
[2017-07-18] MEDS: lactobacillus rhamnosus 10,000 MMU CELLS/CAPSULE PO SCH ×2 (08:35→20:38)
[2017-07-18] MEDS: aspirin 81mg tab.chew PO SCH (08:35)
[2017-07-18] MEDS: citalopram 20mg tablet OGT SCH (08:35)
[2017-07-18] MEDS: atorvastatin 20mg tablet PO SCH (08:35)
[2017-07-18] MEDS: atenolol 25mg tablet OGT SCH ×2 (08:35→20:39)
[2017-07-18] MEDS: normal saline 1000ml 1,000 ML IV SCH ×2 (08:37→17:37)
[2017-07-18] MEDS: midazolam 100mg in NS 100ml 100 ML IV PRN (08:45)
[2017-07-18] MEDS: QUEtiapine 25mg tablet PO SCH (13:18)
[2017-07-18] MEDS: diatr meglu/diatrizoate 30ml oral sol.-(3 dose) bottle PO SCH ×3 (14:18→20:43)
[2017-07-18] MEDS ORDERED: VANCOMYCIN LEVEL IV NR (18:30)
[2017-07-18] MEDS: vancomycin/NS 1 GM ADD-VANTAGE 250 ML IV SCH (20:20)
[2017-07-19] VITALS (24 sets, daily range): BP systolic 87–152; BP diastolic 45–79
[2017-07-19] MEDS: FENTANYL-0.9 % NACL/PF 100 ML IV PRN ×3 (00:21→19:50)
[2017-07-19] MEDS: ipratropium/albuterol 3ml nebule NEB SCH ×6 (02:32→22:57)
[2017-07-19] MEDS: dexmedetomidine inj. 400 MCG in normal saline 100ml IV soln 100 ML IV PRN (02:37)
[2017-07-19] MEDS: insulin regular, human vial - multi-dose SQ SCH ×4 (02:43→20:16)
[2017-07-19] MEDS: diltiazem 30mg tablet OGT SCH ×4 (02:44→19:48)
[2017-07-19] MEDS: methylPREDNISolone sod succ 125mg/2ml vial IV SCH ×4 (02:44→19:47)
[2017-07-19] MEDS: mineral oil/petrolatum ophthal oint EACHEYE SCH ×4 (02:45→19:47)
[2017-07-19 03:35] LABS: ABG BASE EXCESS -3.4 mmol/L (-2.0-3.0); ABG HCO3 20.6 mmol/L (22.0-26.0); ABG PCO2 (T) 32.6 mmHg (32.0-45.0); ABG PH (T) 7.416 (7.350-7.450); ALLEN'S TEST Positive; FCOHb 0.3 % (0.5-1.5); FO2Hb 93.7 % (94-100); MINUTE VOLUME 8 L/min; PATIENT TEMPERATURE 36.3; PEEP 5 cm H2O; RESPIRATORY RATE 20 b/min; RESPIRATORY RATE (OBSERVED) 20 b/min; TIDAL VOLUME 400 mL; TOTAL HEMOGLOBIN 10.6 G/dl (12.0-16.0)
[2017-07-19 03:53] LABS: BASOPHILS % (AUTO) 0 % (0-1); EOSINOPHILS # (AUTO) 0.2 X10'3 (0-0.9); EOSINOPHILS % (AUTO) 1.5 % (0-6); HEMOGLOBIN 9.6 g/dl (12.0-16.0); LYMPHOCYTES # (AUTO) 0.1 X10'3 (1.1-4.8); LYMPHOCYTES % (AUTO) 1.2 % (21-51); MEAN CORPUSCULAR HEMOGLOBIN 29.8 PG (27.0-31.0); MEAN CORPUSCULAR VOLUME 90.2 FL (78-98); MEAN PLATELET VOLUME 7.3 FL (7.4-10.4); MONOCYTES # (AUTO) 0.1 X10'3 (0-0.9); NEUTROPHILS # (AUTO) 11.5 X10'3 (1.8-7.7); NEUTROPHILS % (AUTO) 96.3 % (42-75); PLATELET COUNT 182 X10'3 (140-440); RED BLOOD COUNT 3.21 X10'6 (4.20-5.60); RED CELL DISTRIBUTION WIDTH 16.1 % (11.5-14.5); WHITE BLOOD COUNT 11.9 X10'3 (4.5-11.0)
[2017-07-19 04:11] LABS: ALANINE AMINOTRANSFERASE 38 U/L (12-78); ALBUMIN 1.6 G/DL (3.4-5.0); ALBUMIN/GLOBULIN RATIO 0.5 (1.1-1.5); ALKALINE PHOSPHATASE 41 IU/L (46-116); ANION GAP 9 (8-16); ASPARTATE AMINO TRANSFERASE 23 U/L (10-37); BILIRUBIN,TOTAL 0.3 MG/DL (0.1-1.0); BLOOD UREA NITROGEN 54 MG/DL (7-18); BUN/CREATININE RATIO 49.5 (6.6-38.0); CALCIUM 8.4 MG/DL (8.5-10.1); CHLORIDE 109 MMOL/L (99-107); CREATININE 1.09 MG/DL (0.40-0.90); GLUCOSE 242 MG/DL (70-104); MAGNESIUM 1.8 MG/DL (1.5-2.4); PHOSPHORUS 3.7 MG/DL (2.3-4.5); POTASSIUM 4.5 MMOL/L (3.5-5.1); SODIUM 141 MMOL/L (135-145); TOTAL CARBON DIOXIDE 22.9 MMOL/L (24-32); TOTAL PROTEIN 4.6 G/DL (6.4-8.2); eGFR 50 ML/MIN
[2017-07-19 04:39] LABS: PREALBUMIN 24.2 MG/DL (19-36)
[2017-07-19] MEDS: normal saline 1000ml 1,000 ML IV SCH (05:32)
[2017-07-19] MEDS: atenolol 25mg tablet OGT SCH ×2 (08:00→19:48)
[2017-07-19] MEDS: famotidine/PF 10 mg/ml inj IV SCH ×2 (08:31→20:14)
[2017-07-19] MEDS: enoxaparin 80mg/0.8ml syringe SUBCUT SCH ×2 (08:31→19:49)
[2017-07-19] MEDS: lactobacillus rhamnosus 10,000 MMU CELLS/CAPSULE PO SCH ×2 (08:32→19:48)
[2017-07-19] MEDS: HYDROcodone/acetaminophen 5mg/325mg tablet PO PRN ×2 (08:33→16:22)
[2017-07-19] MEDS: lisinopril 20mg tablet PO SCH ×2 (08:33→19:48)
[2017-07-19] MEDS: atorvastatin 20mg tablet PO SCH (08:34)
[2017-07-19] MEDS: LORazepam 0.5 MG tablet PO PRN ×2 (08:34→16:21)
[2017-07-19] MEDS: QUEtiapine 25mg tablet PO SCH (08:34)
[2017-07-19] MEDS: aspirin 81mg tab.chew PO SCH (08:35)
[2017-07-19] MEDS: citalopram 20mg tablet OGT SCH (08:36)
[2017-07-19] MEDS: methylnaltrexone br 12mg/0.6ml inj***SubQ only SQ SCH (08:38)
[2017-07-19] MEDS ORDERED: dexmedetomidine inj. 400 MCG in normal saline 100ml IV soln 100 ML IV PRN (12:25)
[2017-07-19] MEDS: furosemide 40mg/4ml inj IV SCH ×2 (12:29→19:48)
[2017-07-19] MEDS: midazolam 100mg in NS 100ml 100 ML IV PRN (12:58)
[2017-07-19] MEDS: vancomycin/NS 1 GM ADD-VANTAGE 250 ML IV SCH (19:47)
[2017-07-20] VITALS (24 sets, daily range): BP systolic 94–149; BP diastolic 40–70
[2017-07-20] MEDS: diltiazem 30mg tablet OGT SCH ×4 (02:00→19:43)
[2017-07-20] MEDS: mineral oil/petrolatum ophthal oint EACHEYE SCH ×4 (02:11→20:13)
[2017-07-20] MEDS: methylPREDNISolone sod succ 125mg/2ml vial IV SCH ×2 (02:11→07:33)
[2017-07-20] MEDS: insulin regular, human vial - multi-dose SQ SCH ×4 (02:15→20:41)
[2017-07-20 03:05] LABS: BASOPHILS % (AUTO) 0 % (0-1); EOSINOPHILS # (AUTO) 0.2 X10'3 (0-0.9); EOSINOPHILS % (AUTO) 1.5 % (0-6); HEMATOCRIT 25.8 % (35.0-45.0); HEMOGLOBIN 8.4 g/dl (12.0-16.0); LYMPHOCYTES # (AUTO) 0.1 X10'3 (1.1-4.8); LYMPHOCYTES % (AUTO) 0.5 % (21-51); MEAN CORPUSCULAR HEMOGLOBIN 29.7 PG (27.0-31.0); MEAN CORPUSCULAR HGB CONC 32.5 % (33.0-36.5); MEAN CORPUSCULAR VOLUME 91.5 FL (78-98); MEAN PLATELET VOLUME 7.4 FL (7.4-10.4); MONOCYTES # (AUTO) 0.2 X10'3 (0-0.9); MONOCYTES % (AUTO) 1.2 % (2-12); NEUTROPHILS # (AUTO) 15.2 X10'3 (1.8-7.7); NEUTROPHILS % (AUTO) 96.8 % (42-75); PLATELET COUNT 204 X10'3 (140-440); RED BLOOD COUNT 2.82 X10'6 (4.20-5.60); RED CELL DISTRIBUTION WIDTH 16.2 % (11.5-14.5); WHITE BLOOD COUNT 15.8 X10'3 (4.5-11.0)
[2017-07-20 03:27] LABS: ALANINE AMINOTRANSFERASE 39 U/L (12-78); ALBUMIN 1.5 G/DL (3.4-5.0); ALBUMIN/GLOBULIN RATIO 0.6 (1.1-1.5); ALKALINE PHOSPHATASE 36 IU/L (46-116); ANION GAP 7 (8-16); ASPARTATE AMINO TRANSFERASE 17 U/L (10-37); BILIRUBIN,TOTAL 0.2 MG/DL (0.1-1.0); BLOOD UREA NITROGEN 53 MG/DL (7-18); BUN/CREATININE RATIO 47.7 (6.6-38.0); CALCIUM 8.4 MG/DL (8.5-10.1); CHLORIDE 110 MMOL/L (99-107); CREATININE 1.11 MG/DL (0.40-0.90); GLUCOSE 169 MG/DL (70-104); MAGNESIUM 1.8 MG/DL (1.5-2.4); PHOSPHORUS 3.5 MG/DL (2.3-4.5); POTASSIUM 3.7 MMOL/L (3.5-5.1); SODIUM 142 MMOL/L (135-145); TOTAL CARBON DIOXIDE 24.6 MMOL/L (24-32); TOTAL PROTEIN 4.2 G/DL (6.4-8.2); eGFR 49 ML/MIN
[2017-07-20 03:46] LABS: ABG BASE EXCESS -1.8 mmol/L (-2.0-3.0); ABG HCO3 22.5 mmol/L (22.0-26.0); ABG PCO2 (T) 36.1 mmHg (32.0-45.0); ABG PH (T) 7.411 (7.350-7.450); ABG PO2 (T) 84.5 mmHg (83-108); ALLEN'S TEST Positive; FCOHb 0.3 % (0.5-1.5); FMetHb 0.3 % (0.3-1.12); FO2Hb 95.4 % (94-100); MINUTE VOLUME 8 L/min; PATIENT TEMPERATURE 36.7; PEEP 5 cm H2O; RESPIRATORY RATE 20 b/min; RESPIRATORY RATE (OBSERVED) 20 b/min; TIDAL VOLUME 400 mL; TOTAL HEMOGLOBIN 9.8 G/dl (12.0-16.0)
[2017-07-20] MEDS: midazolam 100mg in NS 100ml 100 ML IV PRN ×3 (04:50→19:15)
[2017-07-20] MEDS: FENTANYL-0.9 % NACL/PF 100 ML IV PRN ×4 (04:51→22:05)
[2017-07-20] MEDS: ipratropium/albuterol 3ml nebule NEB SCH ×5 (07:18→23:11)
[2017-07-20] MEDS: furosemide 40mg/4ml inj IV SCH ×2 (07:33→20:13)
[2017-07-20] MEDS: lactobacillus rhamnosus 10,000 MMU CELLS/CAPSULE PO SCH ×2 (07:35→20:14)
[2017-07-20] MEDS: aspirin 81mg tab.chew PO SCH (07:35)
[2017-07-20] MEDS: citalopram 20mg tablet OGT SCH (07:35)
[2017-07-20] MEDS: enoxaparin 80mg/0.8ml syringe SUBCUT SCH ×2 (07:35→20:15)
[2017-07-20] MEDS: QUEtiapine 25mg tablet PO SCH (07:35)
[2017-07-20] MEDS: atorvastatin 20mg tablet PO SCH (07:35)
[2017-07-20] MEDS: famotidine/PF 10 mg/ml inj IV SCH ×2 (07:36→20:13)
[2017-07-20] MEDS: lisinopril 20mg tablet PO SCH ×3 (08:53→20:13)
[2017-07-20] MEDS: atenolol 25mg tablet OGT SCH ×2 (08:53→19:44)
[2017-07-20] MEDS ORDERED: insulin regular, human 100 UNITS in normal saline 100ml IV soln 99 ML IV SCH ×2 (10:12)
[2017-07-20] MEDS ORDERED: dextrose 50%-water 50ml dispensing syringe IV PRN (10:15)
[2017-07-20 11:10] LABS: OXYGEN SATURATION (MIXED VEN) 68.9 % (60-80); PO2 MIXED VENOUS (TEMP COR) 35.6 mmHg (35-46)
[2017-07-20] MEDS ORDERED: insulin Lispro (HumaLOG) vial - multi-dose SQ SCH (12:00)
[2017-07-20] MEDS: vancomycin/NS 1 GM ADD-VANTAGE 250 ML IV SCH (19:31)
[2017-07-21] VITALS (25 sets, daily range): BP systolic 83–154; BP diastolic 40–75
[2017-07-21] MEDS: NORepinephrine 8mg/ 250ml NS 250 ML IV PRN ×2 (00:45→12:40)
[2017-07-21] MEDS: diltiazem 30mg tablet OGT SCH ×5 (02:00→22:38)
[2017-07-21] MEDS: mineral oil/petrolatum ophthal oint EACHEYE SCH ×4 (02:53→20:06)
[2017-07-21] MEDS: insulin regular, human vial - multi-dose SQ SCH ×3 (02:55→13:42)
[2017-07-21 03:10] LABS: ABG BASE EXCESS -1.8 mmol/L (-2.0-3.0); ABG HCO3 22.3 mmol/L (22.0-26.0); ABG OXYGEN SATURATION 96.2 % (95-98); ABG PCO2 (T) 33.4 mmHg (32.0-45.0); ABG PH (T) 7.438 (7.350-7.450); ABG PO2 (T) 83.1 mmHg (83-108); ALLEN'S TEST Positive; FCOHb 0.1 % (0.5-1.5); FMetHb 0.3 % (0.3-1.12); FO2Hb 95.8 % (94-100); MINUTE VOLUME 8 L/min; PATIENT TEMPERATURE 36.1; PEEP 5 cm H2O; RESPIRATORY RATE 20 b/min; RESPIRATORY RATE (OBSERVED) 20 b/min; TIDAL VOLUME 400 mL; TOTAL HEMOGLOBIN 7.8 G/dl (12.0-16.0)
[2017-07-21 03:37] LABS: BASOPHILS % (AUTO) 0 % (0-1); EOSINOPHILS # (AUTO) 0.4 X10'3 (0-0.9); EOSINOPHILS % (AUTO) 2.1 % (0-6); HEMOGLOBIN 7.5 g/dl (12.0-16.0); LYMPHOCYTES # (AUTO) 0.1 X10'3 (1.1-4.8); LYMPHOCYTES % (AUTO) 0.7 % (21-51); MEAN CORPUSCULAR HEMOGLOBIN 29.7 PG (27.0-31.0); MEAN CORPUSCULAR HGB CONC 32.4 % (33.0-36.5); MEAN CORPUSCULAR VOLUME 91.6 FL (78-98); MEAN PLATELET VOLUME 7.6 FL (7.4-10.4); MONOCYTES # (AUTO) 0.3 X10'3 (0-0.9); MONOCYTES % (AUTO) 1.6 % (2-12); NEUTROPHILS # (AUTO) 18.4 X10'3 (1.8-7.7); NEUTROPHILS % (AUTO) 95.6 % (42-75); PLATELET COUNT 198 X10'3 (140-440); RED BLOOD COUNT 2.52 X10'6 (4.20-5.60); RED CELL DISTRIBUTION WIDTH 16.1 % (11.5-14.5); WHITE BLOOD COUNT 19.3 X10'3 (4.5-11.0)
[2017-07-21] MEDS: ipratropium/albuterol 3ml nebule NEB SCH ×6 (03:41→23:48)
[2017-07-21 03:51] LABS: ALANINE AMINOTRANSFERASE 38 U/L (12-78); ALBUMIN 1.5 G/DL (3.4-5.0); ALBUMIN/GLOBULIN RATIO 0.6 (1.1-1.5); ALKALINE PHOSPHATASE 32 IU/L (46-116); ANION GAP 8 (8-16); ASPARTATE AMINO TRANSFERASE 20 U/L (10-37); BILIRUBIN,TOTAL 0.3 MG/DL (0.1-1.0); BLOOD UREA NITROGEN 53 MG/DL (7-18); BUN/CREATININE RATIO 48.6 (6.6-38.0); CALCIUM 8.3 MG/DL (8.5-10.1); CHLORIDE 110 MMOL/L (99-107); CREATININE 1.09 MG/DL (0.40-0.90); GLUCOSE 107 MG/DL (70-104); MAGNESIUM 1.8 MG/DL (1.5-2.4); PHOSPHORUS 3.1 MG/DL (2.3-4.5); POTASSIUM 3.6 MMOL/L (3.5-5.1); SODIUM 143 MMOL/L (135-145); TOTAL CARBON DIOXIDE 25.4 MMOL/L (24-32); VANCOMYCIN,RANDOM 28.8 UG/ML; eGFR 50 ML/MIN
[2017-07-21] MEDS: midazolam 100mg in NS 100ml 100 ML IV PRN ×3 (04:13→23:01)
[2017-07-21] MEDS: FENTANYL-0.9 % NACL/PF 100 ML IV PRN ×3 (04:14→18:45)
[2017-07-21] MEDS: aspirin 81mg tab.chew PO SCH (07:11)
[2017-07-21] MEDS: lactobacillus rhamnosus 10,000 MMU CELLS/CAPSULE PO SCH ×2 (07:11→20:06)
[2017-07-21] MEDS: methylnaltrexone br 12mg/0.6ml inj***SubQ only SQ SCH (07:11)
[2017-07-21] MEDS: atorvastatin 20mg tablet PO SCH (07:11)
[2017-07-21] MEDS: citalopram 20mg tablet OGT SCH (07:11)
[2017-07-21] MEDS: QUEtiapine 25mg tablet PO SCH (07:11)
[2017-07-21] MEDS: famotidine/PF 10 mg/ml inj IV SCH ×2 (07:12→20:06)
[2017-07-21] MEDS: enoxaparin 80mg/0.8ml syringe SUBCUT SCH ×2 (07:12→20:06)
[2017-07-21] MEDS: furosemide 40mg/4ml inj IV SCH ×3 (07:12→20:05)
[2017-07-21] MEDS: lisinopril 20mg tablet PO SCH ×2 (08:00→18:51)
[2017-07-21] MEDS: atenolol 25mg tablet OGT SCH ×2 (08:00→18:51)
[2017-07-21 11:47] LABS: INR 1.1 INR; PARTIAL THROMBOPLASTIN TIME 33 SECONDS (22-32); PROTHROMBIN TIME 11.5 SECONDS (9.0-12.0)
[2017-07-21 12:00] LABS: TOTAL CELLS COUNTED 100
[2017-07-21 12:01] LABS: PLATELET ESTIMATE DECREASED
[2017-07-21 12:02] LABS: ANISOCYTOSIS 2+; SCHISTOCYTES FEW
[2017-07-21] MEDS: albumin (human) 25% 100 ML IV solution IV SCH ×2 (15:12→20:30)
[2017-07-21 16:41] LABS: ABG BASE EXCESS -2.4 mmol/L (-2.0-3.0); ABG HCO3 21.7 mmol/L (22.0-26.0); ABG OXYGEN SATURATION 95.5 % (95-98); ABG PCO2 (T) 34.2 mmHg (32.0-45.0); ALLEN'S TEST Positive; FCOHb 0.3 % (0.5-1.5); FMetHb 0.1 % (0.3-1.12); FO2Hb 95.1 % (94-100); MINUTE VOLUME 8 L/min; PEEP 5 cm H2O; RESPIRATORY RATE 20 b/min; RESPIRATORY RATE (OBSERVED) 20 b/min; TIDAL VOLUME 400 mL; TOTAL HEMOGLOBIN 8.2 G/dl (12.0-16.0)
[2017-07-21] MEDS ORDERED: VANCOMYCIN LEVEL IV ONE (18:30)
[2017-07-21] MEDS: vancomycin/NS 1 GM ADD-VANTAGE 250 ML IV SCH (18:44)
[2017-07-21 19:08] LABS: MAGNESIUM 1.5 MG/DL (1.5-2.4); POTASSIUM 3.3 MMOL/L (3.5-5.1); VANCOMYCIN,TROUGH 19.7 UG/ML (6.0-14.0)
[2017-07-21] MEDS ORDERED: magnesium 2GM in 50ml NS 50 ML IV PRN (19:50)
[2017-07-21] MEDS ORDERED: potassium Cl 40MEQ/250ML bag 250 ML IV PRN ×2 (19:50)
[2017-07-21] MEDS ORDERED: magnesium 4gm in 100ml NS 100 ML IV PRN (19:50)
[2017-07-22] VITALS (34 sets, daily range): BP systolic 82–151; BP diastolic 36–96
[2017-07-22 01:08] LABS: INR 1.2 INR; PARTIAL THROMBOPLASTIN TIME 41 SECONDS (22-32)
[2017-07-22 01:13] LABS: ALANINE AMINOTRANSFERASE 33 U/L (12-78); ALBUMIN 2.2 G/DL (3.4-5.0); ALBUMIN/GLOBULIN RATIO 1.1 (1.1-1.5); ALKALINE PHOSPHATASE 27 IU/L (46-116); ANION GAP 6 (8-16); ASPARTATE AMINO TRANSFERASE 16 U/L (10-37); BILIRUBIN,TOTAL 0.6 MG/DL (0.1-1.0); BLOOD UREA NITROGEN 55 MG/DL (7-18); BUN/CREATININE RATIO 52.9 (6.6-38.0); CALCIUM 8.2 MG/DL (8.5-10.1); CHLORIDE 110 MMOL/L (99-107); CREATININE 1.04 MG/DL (0.40-0.90); GLUCOSE 93 MG/DL (70-104); MAGNESIUM 1.8 MG/DL (1.5-2.4); PHOSPHORUS 3.5 MG/DL (2.3-4.5); POTASSIUM 4.3 MMOL/L (3.5-5.1); SODIUM 143 MMOL/L (135-145); TOTAL CARBON DIOXIDE 27.3 MMOL/L (24-32); TOTAL PROTEIN 4.2 G/DL (6.4-8.2); eGFR 53 ML/MIN
[2017-07-22 01:17] LABS: BASOPHILS % (AUTO) 0.1 % (0-1); EOSINOPHILS % (AUTO) 0.1 % (0-6); LYMPHOCYTES # (AUTO) 0.5 X10'3 (1.1-4.8); LYMPHOCYTES % (AUTO) 2.4 % (21-51); MEAN CORPUSCULAR HEMOGLOBIN 30.2 PG (27.0-31.0); MEAN CORPUSCULAR HGB CONC 33.7 % (33.0-36.5); MEAN CORPUSCULAR VOLUME 89.7 FL (78-98); MEAN PLATELET VOLUME 7.8 FL (7.4-10.4); MONOCYTES # (AUTO) 0.2 X10'3 (0-0.9); MONOCYTES % (AUTO) 0.9 % (2-12); NEUTROPHILS # (AUTO) 19.9 X10'3 (1.8-7.7); NEUTROPHILS % (AUTO) 96.5 % (42-75); PLATELET COUNT 171 X10'3 (140-440); RED BLOOD COUNT 2.14 X10'6 (4.20-5.60); RED CELL DISTRIBUTION WIDTH 15.3 % (11.5-14.5); WHITE BLOOD COUNT 20.6 X10'3 (4.5-11.0)
[2017-07-22 01:22] LABS: HEMATOCRIT 19.2 % (35.0-45.0); HEMOGLOBIN 6.5 g/dl (12.0-16.0)
[2017-07-22 01:51] LABS: ABG BASE EXCESS -1.6 mmol/L (-2.0-3.0); ABG HCO3 23.2 mmol/L (22.0-26.0); ABG OXYGEN SATURATION 75.9 % (95-98); ABG PH (T) 7.383 (7.350-7.450); ABG PO2 (T) 45.2 mmHg (83-108); ALLEN'S TEST Positive; FCOHb 0.2 % (0.5-1.5); FMetHb 0.2 % (0.3-1.12); FO2Hb 75.6 % (94-100); MINUTE VOLUME 8 L/min; PATIENT TEMPERATURE 37.4; PEEP 5 cm H2O; RESPIRATORY RATE 20 b/min; RESPIRATORY RATE (OBSERVED) 20 b/min; TIDAL VOLUME 400 mL; TOTAL HEMOGLOBIN 6.8 G/dl (12.0-16.0)
[2017-07-22] MEDS: ipratropium/albuterol 3ml nebule NEB SCH ×6 (03:30→23:26)
[2017-07-22] MEDS: mineral oil/petrolatum ophthal oint EACHEYE SCH ×4 (03:56→20:27)
[2017-07-22] MEDS: NORepinephrine 8mg/ 250ml NS 250 ML IV PRN ×3 (05:28→16:55)
[2017-07-22 07:13] LABS: HEMATOCRIT 25.7 % (35.0-45.0); HEMOGLOBIN 8.6 g/dl (12.0-16.0); MEAN CORPUSCULAR HEMOGLOBIN 29.6 PG (27.0-31.0); MEAN CORPUSCULAR HGB CONC 33.5 % (33.0-36.5); MEAN CORPUSCULAR VOLUME 88.2 FL (78-98); MEAN PLATELET VOLUME 7.4 FL (7.4-10.4); PLATELET COUNT 154 X10'3 (140-440); RED BLOOD COUNT 2.91 X10'6 (4.20-5.60); RED CELL DISTRIBUTION WIDTH 14.6 % (11.5-14.5)
[2017-07-22 07:16] LABS: WHITE BLOOD COUNT 26.6 X10'3 (4.5-11.0)
[2017-07-22] MEDS: QUEtiapine 25mg tablet PO SCH (07:22)
[2017-07-22] MEDS: lactobacillus rhamnosus 10,000 MMU CELLS/CAPSULE PO SCH ×2 (07:22→20:27)
[2017-07-22] MEDS: albumin (human) 25% 100 ML IV solution IV SCH ×3 (07:22→20:47)
[2017-07-22] MEDS: atorvastatin 20mg tablet PO SCH (07:22)
[2017-07-22] MEDS: citalopram 20mg tablet OGT SCH (07:22)
[2017-07-22] MEDS: famotidine/PF 10 mg/ml inj IV SCH ×2 (07:22→20:00)
[2017-07-22] MEDS: diltiazem 30mg tablet OGT SCH ×3 (07:41→19:12)
[2017-07-22] MEDS: atenolol 25mg tablet OGT SCH ×2 (07:41→19:12)
[2017-07-22] MEDS: lisinopril 20mg tablet PO SCH ×2 (07:42→19:12)
[2017-07-22 07:51] LABS: ABG BASE EXCESS -4.7 mmol/L (-2.0-3.0); ABG HCO3 20.7 mmol/L (22.0-26.0); ABG OXYGEN SATURATION 89.1 % (95-98); ABG PCO2 (T) 40.6 mmHg (32.0-45.0); ABG PH (T) 7.328 (7.350-7.450); ABG PO2 (T) 62.8 mmHg (83-108); ALLEN'S TEST Positive; FCOHb 0.1 % (0.5-1.5); FMetHb 0.3 % (0.3-1.12); FO2Hb 88.7 % (94-100); MINUTE VOLUME 9 L/min; PATIENT TEMPERATURE 37.7; PEEP 8 cm H2O; RESPIRATORY RATE 24 b/min; RESPIRATORY RATE (OBSERVED) 24 b/min; TIDAL VOLUME 400 mL; TOTAL HEMOGLOBIN 9.2 G/dl (12.0-16.0)
[2017-07-22] MEDS: enoxaparin 80mg/0.8ml syringe SUBCUT SCH (08:00)
[2017-07-22] MEDS: aspirin 81mg tab.chew PO SCH (08:00)
[2017-07-22] MEDS: furosemide 40mg/4ml inj IV SCH ×3 (08:36→21:00)
[2017-07-22] MEDS: FENTANYL-0.9 % NACL/PF 100 ML IV PRN ×3 (08:36→20:46)
[2017-07-22] MEDS: midazolam 100mg in NS 100ml 100 ML IV PRN ×2 (08:37→20:28)
[2017-07-22] MEDS: vasopressin inj. 60 UNIT in normal saline 100ml IV soln 97 ML IV SCH (11:09)
[2017-07-22] MEDS: insulin regular, human vial - multi-dose SQ SCH ×2 (14:14→20:45)
[2017-07-22 15:45] LABS: MEAN CORPUSCULAR HEMOGLOBIN 29.6 PG (27.0-31.0); MEAN CORPUSCULAR HGB CONC 33.7 % (33.0-36.5); MEAN PLATELET VOLUME 7.7 FL (7.4-10.4); PLATELET COUNT 97 X10'3 (140-440); RED BLOOD COUNT 1.76 X10'6 (4.20-5.60); WHITE BLOOD COUNT 18.5 X10'3 (4.5-11.0)
[2017-07-22 16:00] LABS: HEMATOCRIT 15.5 % (35.0-45.0); HEMOGLOBIN 5.2 g/dl (12.0-16.0)
[2017-07-22] MEDS: vancomycin/NS 1 GM ADD-VANTAGE 250 ML IV SCH (20:27)
[2017-07-22 22:46] LABS: MEAN CORPUSCULAR HEMOGLOBIN 30.1 PG (27.0-31.0); MEAN CORPUSCULAR HGB CONC 34.3 % (33.0-36.5); MEAN CORPUSCULAR VOLUME 87.6 FL (78-98); MEAN PLATELET VOLUME 7.6 FL (7.4-10.4); PLATELET COUNT 79 X10'3 (140-440); RED BLOOD COUNT 1.79 X10'6 (4.20-5.60); RED CELL DISTRIBUTION WIDTH 15.1 % (11.5-14.5)
[2017-07-22 23:02] LABS: HEMATOCRIT 15.7 % (35.0-45.0); HEMOGLOBIN 5.4 g/dl (12.0-16.0)
[2017-07-23] VITALS (34 sets, daily range): BP systolic 84–162; BP diastolic 40–83
[2017-07-23] MEDS: NORepinephrine 8mg/ 250ml NS 250 ML IV PRN ×2 (01:52→13:35)
[2017-07-23] MEDS: diltiazem 30mg tablet OGT SCH ×4 (02:00→19:35)
[2017-07-23] MEDS: mineral oil/petrolatum ophthal oint EACHEYE SCH ×4 (02:50→19:35)
[2017-07-23] MEDS: insulin regular, human vial - multi-dose SQ SCH ×4 (02:53→19:51)
[2017-07-23 03:33] LABS: BASOPHILS % (AUTO) 0 % (0-1); EOSINOPHILS # (AUTO) 0.3 X10'3 (0-0.9); EOSINOPHILS % (AUTO) 1.9 % (0-6); LYMPHOCYTES # (AUTO) 0.5 X10'3 (1.1-4.8); LYMPHOCYTES % (AUTO) 3.5 % (21-51); MEAN CORPUSCULAR HEMOGLOBIN 30.2 PG (27.0-31.0); MEAN CORPUSCULAR HGB CONC 34.6 % (33.0-36.5); MEAN CORPUSCULAR VOLUME 87.3 FL (78-98); MEAN PLATELET VOLUME 8.2 FL (7.4-10.4); MONOCYTES # (AUTO) 0.3 X10'3 (0-0.9); MONOCYTES % (AUTO) 1.9 % (2-12); NEUTROPHILS # (AUTO) 13.1 X10'3 (1.8-7.7); NEUTROPHILS % (AUTO) 92.7 % (42-75); PLATELET COUNT 74 X10'3 (140-440); WHITE BLOOD COUNT 14.2 X10'3 (4.5-11.0)
[2017-07-23] MEDS: ipratropium/albuterol 3ml nebule NEB SCH ×6 (03:39→23:32)
[2017-07-23 03:46] LABS: HEMOGLOBIN 4.9 g/dl (12.0-16.0)
[2017-07-23 03:47] LABS: ALANINE AMINOTRANSFERASE 112 U/L (12-78); ALBUMIN 2.6 G/DL (3.4-5.0); ALBUMIN/GLOBULIN RATIO 1.7 (1.1-1.5); ALKALINE PHOSPHATASE 20 IU/L (46-116); ANION GAP 10 (8-16); ASPARTATE AMINO TRANSFERASE 81 U/L (10-37); BLOOD UREA NITROGEN 63 MG/DL (7-18); BUN/CREATININE RATIO 45.3 (6.6-38.0); CALCIUM 8.1 MG/DL (8.5-10.1); CHLORIDE 108 MMOL/L (99-107); CREATININE 1.39 MG/DL (0.40-0.90); GLUCOSE 162 MG/DL (70-104); MAGNESIUM 1.8 MG/DL (1.5-2.4); PHOSPHORUS 4.8 MG/DL (2.3-4.5); POTASSIUM 4.9 MMOL/L (3.5-5.1); SODIUM 142 MMOL/L (135-145); TOTAL CARBON DIOXIDE 24.4 MMOL/L (24-32); TOTAL PROTEIN 4.1 G/DL (6.4-8.2); eGFR 38 ML/MIN
[2017-07-23 04:01] LABS: ABG BASE EXCESS -2.1 mmol/L (-2.0-3.0); ABG HCO3 22.6 mmol/L (22.0-26.0); ABG OXYGEN SATURATION 93.7 % (95-98); ABG PCO2 (T) 37.7 mmHg (32.0-45.0); ABG PH (T) 7.396 (7.350-7.450); ABG PO2 (T) 78.8 mmHg (83-108); FCOHb 0.7 % (0.5-1.5); FMetHb 0.3 % (0.3-1.12); FO2Hb 92.8 % (94-100); MINUTE VOLUME 8 L/min; PATIENT TEMPERATURE 37.1; PEEP 5 cm H2O; RESPIRATORY RATE 24 b/min; RESPIRATORY RATE (OBSERVED) 24 b/min; TIDAL VOLUME 400 mL; TOTAL HEMOGLOBIN 4.9 G/dl (12.0-16.0)
[2017-07-23] MEDS: FENTANYL-0.9 % NACL/PF 100 ML IV PRN ×4 (04:16→22:40)
[2017-07-23] MEDS: midazolam 100mg in NS 100ml 100 ML IV PRN ×2 (05:51→15:05)
[2017-07-23] MEDS: lisinopril 20mg tablet PO SCH (08:00)
[2017-07-23] MEDS: famotidine/PF 10 mg/ml inj IV SCH ×3 (08:00→20:00)
[2017-07-23] MEDS: atenolol 25mg tablet OGT SCH (08:00)
[2017-07-23] MEDS: methylnaltrexone br 12mg/0.6ml inj***SubQ only SQ SCH (08:00)
[2017-07-23] MEDS: lactobacillus rhamnosus 10,000 MMU CELLS/CAPSULE PO SCH ×2 (08:13→19:34)
[2017-07-23] MEDS: atorvastatin 20mg tablet PO SCH (08:13)
[2017-07-23] MEDS: citalopram 20mg tablet OGT SCH (08:13)
[2017-07-23] MEDS: QUEtiapine 25mg tablet PO SCH (08:13)
[2017-07-23] MEDS: albumin (human) 25% 100 ML IV solution IV SCH ×3 (08:15→21:11)
[2017-07-23] MEDS: furosemide 40mg/4ml inj IV SCH ×4 (09:01→22:40)
[2017-07-23 10:49] LABS: ANISOCYTOSIS 1+; PLATELET ESTIMATE DECREASED; TOTAL CELLS COUNTED 100
[2017-07-23 10:50] LABS: MICROCYTOSIS 1+
[2017-07-23] MEDS ORDERED: metoclopramide 5 mg/ml inj IV PRN (11:10)
[2017-07-23] MEDS ORDERED: cefTAZidime inj. 1 GM in normal saline 100ml IV soln 100 ML IV SCH (11:13)
[2017-07-23 11:41] LABS: BASOPHILS % (AUTO) 0.1 % (0-1); EOSINOPHILS # (AUTO) 0.2 X10'3 (0-0.9); LYMPHOCYTES # (AUTO) 0.4 X10'3 (1.1-4.8); LYMPHOCYTES % (AUTO) 3.4 % (21-51); MEAN CORPUSCULAR HEMOGLOBIN 30.1 PG (27.0-31.0); MEAN CORPUSCULAR HGB CONC 35.7 % (33.0-36.5); MEAN CORPUSCULAR VOLUME 84.4 FL (78-98); MEAN PLATELET VOLUME 8.3 FL (7.4-10.4); MONOCYTES # (AUTO) 0.2 X10'3 (0-0.9); MONOCYTES % (AUTO) 1.6 % (2-12); NEUTROPHILS # (AUTO) 10.2 X10'3 (1.8-7.7); NEUTROPHILS % (AUTO) 92.9 % (42-75); PLATELET COUNT 53 X10'3 (140-440); RED BLOOD COUNT 2.26 X10'6 (4.20-5.60); RED CELL DISTRIBUTION WIDTH 14.9 % (11.5-14.5); WHITE BLOOD COUNT 10.9 X10'3 (4.5-11.0)
[2017-07-23 11:46] LABS: HEMATOCRIT 19.1 % (35.0-45.0); HEMOGLOBIN 6.8 g/dl (12.0-16.0)
[2017-07-23 11:52] LABS: INR 1.3 INR; PARTIAL THROMBOPLASTIN TIME 36 SECONDS (22-32)
[2017-07-23 11:56] LABS: ALANINE AMINOTRANSFERASE 101 U/L (12-78); ALBUMIN 2.9 G/DL (3.4-5.0); ALBUMIN/GLOBULIN RATIO 1.8 (1.1-1.5); ALKALINE PHOSPHATASE 21 IU/L (46-116); ANION GAP 10 (8-16); ASPARTATE AMINO TRANSFERASE 58 U/L (10-37); BILIRUBIN,TOTAL 1.9 MG/DL (0.1-1.0); BLOOD UREA NITROGEN 62 MG/DL (7-18); BUN/CREATININE RATIO 48.4 (6.6-38.0); CHLORIDE 107 MMOL/L (99-107); CREATININE 1.28 MG/DL (0.40-0.90); GLUCOSE 191 MG/DL (70-104); MAGNESIUM 1.7 MG/DL (1.5-2.4); POTASSIUM 4.4 MMOL/L (3.5-5.1); SODIUM 141 MMOL/L (135-145); TOTAL CARBON DIOXIDE 24.5 MMOL/L (24-32); TOTAL PROTEIN 4.5 G/DL (6.4-8.2); eGFR 42 ML/MIN
[2017-07-23] MEDS: hydrocortisone sod succ/PF 100mg/2ml inj. IV SCH ×2 (14:20→19:35)
[2017-07-23] MEDS ORDERED: cefTAZidime inj. 1 GM in dextrose 5%-water 50ml 50 ML IV SCH (15:35)
[2017-07-23] MEDS: CEFTAZIDIME IV SCH (16:56)
[2017-07-23] MEDS: WATER IV SCH (16:56)
[2017-07-23] MEDS: DEXTROSE 5% IV SCH (16:56)
[2017-07-23] MEDS: vancomycin/NS 1 GM ADD-VANTAGE 250 ML IV SCH (19:34)
[2017-07-23 19:51] LABS: MEAN CORPUSCULAR HEMOGLOBIN 29.9 PG (27.0-31.0); MEAN CORPUSCULAR HGB CONC 35.1 % (33.0-36.5); PLATELET COUNT 53 X10'3 (140-440); RED BLOOD COUNT 1.94 X10'6 (4.20-5.60); RED CELL DISTRIBUTION WIDTH 15.1 % (11.5-14.5); WHITE BLOOD COUNT 11.3 X10'3 (4.5-11.0)
[2017-07-23 19:52] LABS: BASOPHILS % (AUTO) 0 % (0-1); EOSINOPHILS # (AUTO) 0.2 X10'3 (0-0.9); EOSINOPHILS % (AUTO) 2.1 % (0-6); LYMPHOCYTES # (AUTO) 0.1 X10'3 (1.1-4.8); MEAN PLATELET VOLUME 8.2 FL (7.4-10.4); MONOCYTES # (AUTO) 0.2 X10'3 (0-0.9); MONOCYTES % (AUTO) 1.4 % (2-12); NEUTROPHILS # (AUTO) 10.8 X10'3 (1.8-7.7); NEUTROPHILS % (AUTO) 95.5 % (42-75)
[2017-07-23 19:58] LABS: HEMATOCRIT 16.5 % (35.0-45.0); HEMOGLOBIN 5.8 g/dl (12.0-16.0)
[2017-07-24] VITALS (28 sets, daily range): BP systolic 117–183; BP diastolic 40–90
[2017-07-24] MEDS: diltiazem 30mg tablet OGT SCH ×4 (02:00→20:25)
[2017-07-24] MEDS: midazolam 100mg in NS 100ml 100 ML IV PRN ×3 (02:59→22:20)
[2017-07-24] MEDS: mineral oil/petrolatum ophthal oint EACHEYE SCH ×4 (02:59→19:14)
[2017-07-24] MEDS: hydrocortisone sod succ/PF 100mg/2ml inj. IV SCH ×4 (02:59→20:16)
[2017-07-24] MEDS: insulin regular, human vial - multi-dose SQ SCH ×3 (03:13→20:31)
[2017-07-24 03:27] LABS: INR 1.2 INR; PARTIAL THROMBOPLASTIN TIME 38 SECONDS (22-32); PROTHROMBIN TIME 12.1 SECONDS (9.0-12.0)
[2017-07-24] MEDS: ipratropium/albuterol 3ml nebule NEB SCH ×6 (03:28→23:29)
[2017-07-24 03:34] LABS: CHLORIDE 108 MMOL/L (99-107); GLUCOSE 151 MG/DL (70-104); POTASSIUM 3.7 MMOL/L (3.5-5.1); SODIUM 144 MMOL/L (135-145); TOTAL CARBON DIOXIDE 28.2 MMOL/L (24-32)
[2017-07-24 03:35] LABS: ALANINE AMINOTRANSFERASE 84 U/L (12-78); ALBUMIN 3.1 G/DL (3.4-5.0); ALBUMIN/GLOBULIN RATIO 1.8 (1.1-1.5); ALKALINE PHOSPHATASE 19 IU/L (46-116); ANION GAP 8 (8-16); ASPARTATE AMINO TRANSFERASE 47 U/L (10-37); BILIRUBIN,TOTAL 1.1 MG/DL (0.1-1.0); BLOOD UREA NITROGEN 58 MG/DL (7-18); BUN/CREATININE RATIO 48.3 (6.6-38.0); CALCIUM 8.2 MG/DL (8.5-10.1); MAGNESIUM 1.8 MG/DL (1.5-2.4); TOTAL PROTEIN 4.8 G/DL (6.4-8.2); eGFR 45 ML/MIN
[2017-07-24 03:45] LABS: ABG BASE EXCESS 1.9 mmol/L (-2.0-3.0); ABG HCO3 26.2 mmol/L (22.0-26.0); ABG OXYGEN SATURATION 98.1 % (95-98); ABG PCO2 (T) 38.9 mmHg (32.0-45.0); ABG PH (T) 7.445 (7.350-7.450); ALLEN'S TEST Positive; FCOHb 0.3 % (0.5-1.5); FMetHb 0.2 % (0.3-1.12); FO2Hb 97.6 % (94-100); MINUTE VOLUME 8 L/min; PATIENT TEMPERATURE 36.6; PEEP 5 cm H2O; RESPIRATORY RATE 24 b/min; RESPIRATORY RATE (OBSERVED) 24 b/min; TIDAL VOLUME 400 mL; TOTAL HEMOGLOBIN 8.4 G/dl (12.0-16.0)
[2017-07-24 04:11] LABS: BASOPHILS % (AUTO) 0 % (0-1); EOSINOPHILS % (AUTO) 0 % (0-6); HEMATOCRIT 23.1 % (35.0-45.0); HEMOGLOBIN 7.9 g/dl (12.0-16.0); LYMPHOCYTES # (AUTO) 0.2 X10'3 (1.1-4.8); LYMPHOCYTES % (AUTO) 1.6 % (21-51); MEAN CORPUSCULAR HEMOGLOBIN 29.5 PG (27.0-31.0); MEAN CORPUSCULAR HGB CONC 34.3 % (33.0-36.5); MEAN CORPUSCULAR VOLUME 85.8 FL (78-98); MEAN PLATELET VOLUME 8.8 FL (7.4-10.4); MONOCYTES # (AUTO) 0.2 X10'3 (0-0.9); MONOCYTES % (AUTO) 1.6 % (2-12); NEUTROPHILS # (AUTO) 9.4 X10'3 (1.8-7.7); NEUTROPHILS % (AUTO) 96.8 % (42-75); RED BLOOD COUNT 2.69 X10'6 (4.20-5.60); WHITE BLOOD COUNT 9.8 X10'3 (4.5-11.0)
[2017-07-24 04:20] LABS: PLATELET COUNT 45 X10'3 (140-440)
[2017-07-24] MEDS: FENTANYL-0.9 % NACL/PF 100 ML IV PRN (05:11)
[2017-07-24] MEDS: QUEtiapine 25mg tablet PO SCH (08:04)
[2017-07-24] MEDS: atorvastatin 20mg tablet PO SCH (08:04)
[2017-07-24] MEDS: lactobacillus rhamnosus 10,000 MMU CELLS/CAPSULE PO SCH ×2 (08:04→20:25)
[2017-07-24] MEDS: citalopram 20mg tablet OGT SCH (08:05)
[2017-07-24] MEDS: furosemide 40mg/4ml inj IV SCH ×3 (08:19→20:16)
[2017-07-24] MEDS: famotidine/PF 10 mg/ml inj IV SCH ×2 (08:19→20:00)
[2017-07-24] MEDS: DEXTROSE 5% IV SCH ×2 (08:34→19:14)
[2017-07-24] MEDS: WATER IV SCH ×2 (08:34→19:14)
[2017-07-24] MEDS: CEFTAZIDIME IV SCH ×2 (08:34→19:14)
[2017-07-24] MEDS: albumin (human) 25% 100 ML IV solution IV SCH ×2 (08:53→13:27)
[2017-07-24] MEDS: vasopressin inj. 60 UNIT in normal saline 100ml IV soln 97 ML IV SCH (10:20)
[2017-07-24 10:29] LABS: TOTAL CELLS COUNTED 100
[2017-07-24 10:30] LABS: PLATELET ESTIMATE DECREASED
[2017-07-24 10:32] LABS: BURR CELLS 1+; SCHISTOCYTES FEW
[2017-07-24 11:45] LABS: BASOPHILS % (AUTO) 0 % (0-1); EOSINOPHILS # (AUTO) 0.2 X10'3 (0-0.9); EOSINOPHILS % (AUTO) 1.9 % (0-6); HEMOGLOBIN 7.7 g/dl (12.0-16.0); LYMPHOCYTES # (AUTO) 0.1 X10'3 (1.1-4.8); LYMPHOCYTES % (AUTO) 1.8 % (21-51); MEAN CORPUSCULAR HEMOGLOBIN 30.2 PG (27.0-31.0); MEAN CORPUSCULAR HGB CONC 35.2 % (33.0-36.5); MEAN CORPUSCULAR VOLUME 85.8 FL (78-98); MEAN PLATELET VOLUME 8.1 FL (7.4-10.4); MONOCYTES # (AUTO) 0.1 X10'3 (0-0.9); MONOCYTES % (AUTO) 1.7 % (2-12); NEUTROPHILS # (AUTO) 7.7 X10'3 (1.8-7.7); NEUTROPHILS % (AUTO) 94.6 % (42-75); RED BLOOD COUNT 2.53 X10'6 (4.20-5.60); RED CELL DISTRIBUTION WIDTH 14.8 % (11.5-14.5); WHITE BLOOD COUNT 8.1 X10'3 (4.5-11.0)
[2017-07-24 11:48] LABS: HEMATOCRIT 21.7 % (35.0-45.0); PLATELET COUNT 44 X10'3 (140-440)
[2017-07-24] MEDS ORDERED: morphine 4 MG/ML inj SYRINge IV PRN (12:00)
[2017-07-24] MEDS: morphine 4 MG/ML inj SYRINge IV PRN ×6 (17:00→23:33)
[2017-07-24 18:06] LABS: BASOPHILS % (AUTO) 0 % (0-1); EOSINOPHILS # (AUTO) 0.1 X10'3 (0-0.9); EOSINOPHILS % (AUTO) 1.4 % (0-6); HEMATOCRIT 25.2 % (35.0-45.0); HEMOGLOBIN 8.6 g/dl (12.0-16.0); LYMPHOCYTES # (AUTO) 0.1 X10'3 (1.1-4.8); LYMPHOCYTES % (AUTO) 1.2 % (21-51); MEAN CORPUSCULAR HEMOGLOBIN 30.1 PG (27.0-31.0); MEAN CORPUSCULAR HGB CONC 34.3 % (33.0-36.5); MEAN CORPUSCULAR VOLUME 87.6 FL (78-98); MEAN PLATELET VOLUME 8.2 FL (7.4-10.4); MONOCYTES # (AUTO) 0.1 X10'3 (0-0.9); MONOCYTES % (AUTO) 1.7 % (2-12); NEUTROPHILS # (AUTO) 8.2 X10'3 (1.8-7.7); NEUTROPHILS % (AUTO) 95.7 % (42-75); RED BLOOD COUNT 2.88 X10'6 (4.20-5.60); RED CELL DISTRIBUTION WIDTH 14.8 % (11.5-14.5); WHITE BLOOD COUNT 8.5 X10'3 (4.5-11.0)
[2017-07-24 18:09] LABS: PLATELET COUNT 44 X10'3 (140-440)
[2017-07-24] MEDS: VANCOMYCIN 750MG IV in NS 250 ML IV SCH (21:13)
[2017-07-25] VITALS (24 sets, daily range): BP systolic 114–196; BP diastolic 38–88
[2017-07-25] MEDS: morphine 4 MG/ML inj SYRINge IV PRN ×14 (01:25→19:48)
[2017-07-25] MEDS: hydrocortisone sod succ/PF 100mg/2ml inj. IV SCH ×4 (01:25→19:52)
[2017-07-25] MEDS: diltiazem 30mg tablet OGT SCH ×5 (01:25→19:52)
[2017-07-25] MEDS: mineral oil/petrolatum ophthal oint EACHEYE SCH ×4 (01:25→19:52)
[2017-07-25] MEDS: insulin regular, human vial - multi-dose SQ SCH ×3 (03:11→20:12)
[2017-07-25 03:44] LABS: HEMATOCRIT 25.6 % (35.0-45.0); HEMOGLOBIN 8.8 g/dl (12.0-16.0); MEAN CORPUSCULAR HEMOGLOBIN 30.4 PG (27.0-31.0); MEAN CORPUSCULAR HGB CONC 34.4 % (33.0-36.5); MEAN CORPUSCULAR VOLUME 88.3 FL (78-98); RED BLOOD COUNT 2.89 X10'6 (4.20-5.60); RED CELL DISTRIBUTION WIDTH 14.7 % (11.5-14.5); WHITE BLOOD COUNT 8.4 X10'3 (4.5-11.0)
[2017-07-25] MEDS: ipratropium/albuterol 3ml nebule NEB SCH ×6 (03:48→23:19)
[2017-07-25 03:53] LABS: PLATELET COUNT 46 X10'3 (140-440)
[2017-07-25 04:05] LABS: ABG BASE EXCESS 3.8 mmol/L (-2.0-3.0); ABG HCO3 27.4 mmol/L (22.0-26.0); ABG OXYGEN SATURATION 86.8 % (95-98); ABG PCO2 (T) 37.2 mmHg (32.0-45.0); ABG PH (T) 7.485 (7.350-7.450); ALLEN'S TEST Positive; FCOHb 0.3 % (0.5-1.5); FMetHb 0.3 % (0.3-1.12); FO2Hb 86.3 % (94-100); MINUTE VOLUME 8 L/min; PATIENT TEMPERATURE 36.8; PEEP 5 cm H2O; RESPIRATORY RATE 24 b/min; RESPIRATORY RATE (OBSERVED) 24 b/min; TIDAL VOLUME 400 mL; TOTAL HEMOGLOBIN 9.9 G/dl (12.0-16.0)
[2017-07-25 04:39] LABS: ALANINE AMINOTRANSFERASE 92 U/L (12-78); ALBUMIN 3.1 G/DL (3.4-5.0); ALBUMIN/GLOBULIN RATIO 1.6 (1.1-1.5); ALKALINE PHOSPHATASE 27 IU/L (46-116); ANION GAP 11 (8-16); ASPARTATE AMINO TRANSFERASE 45 U/L (10-37); BILIRUBIN,TOTAL 1.1 MG/DL (0.1-1.0); BLOOD UREA NITROGEN 57 MG/DL (7-18); BUN/CREATININE RATIO 53.3 (6.6-38.0); CALCIUM 8.3 MG/DL (8.5-10.1); CHLORIDE 107 MMOL/L (99-107); CREATININE 1.07 MG/DL (0.40-0.90); GLUCOSE 171 MG/DL (70-104); MAGNESIUM 1.7 MG/DL (1.5-2.4); SODIUM 147 MMOL/L (135-145); TOTAL CARBON DIOXIDE 29.3 MMOL/L (24-32); eGFR 51 ML/MIN
[2017-07-25 04:49] LABS: POTASSIUM 2.7 MMOL/L (3.5-5.1)
[2017-07-25] MEDS ORDERED: potassium Cl 40MEQ/250ML bag 250 ML IV ONE (05:12)
[2017-07-25] MEDS: midazolam 100mg in NS 100ml 100 ML IV PRN ×4 (05:29→18:44)
[2017-07-25] MEDS: WATER IV SCH ×2 (07:32→19:40)
[2017-07-25] MEDS: CEFTAZIDIME IV SCH ×2 (07:32→19:40)
[2017-07-25] MEDS: atorvastatin 20mg tablet PO SCH (07:32)
[2017-07-25] MEDS: citalopram 20mg tablet OGT SCH (07:32)
[2017-07-25] MEDS: lactobacillus rhamnosus 10,000 MMU CELLS/CAPSULE PO SCH ×2 (07:32→19:52)
[2017-07-25] MEDS: QUEtiapine 25mg tablet PO SCH (07:32)
[2017-07-25] MEDS: DEXTROSE 5% IV SCH ×2 (07:32→19:40)
[2017-07-25] MEDS: furosemide 40mg/4ml inj IV SCH ×3 (07:32→20:36)
[2017-07-25] MEDS: methylnaltrexone br 12mg/0.6ml inj***SubQ only SQ SCH (07:33)
[2017-07-25] MEDS: famotidine/PF 10 mg/ml inj IV SCH ×2 (07:33→20:37)
[2017-07-25] MEDS: potassium Cl 40MEQ/250ML bag 250 ML IV PRN ×4 (08:33→22:34)
[2017-07-25 08:43] LABS: TOTAL CELLS COUNTED 100
[2017-07-25 08:44] LABS: PLATELET ESTIMATE DECREASED
[2017-07-25 12:00] LABS: BASOPHILS % (AUTO) 0 % (0-1); EOSINOPHILS # (AUTO) 0.1 X10'3 (0-0.9); EOSINOPHILS % (AUTO) 1.5 % (0-6); HEMATOCRIT 26.1 % (35.0-45.0); LYMPHOCYTES # (AUTO) 0.1 X10'3 (1.1-4.8); LYMPHOCYTES % (AUTO) 1.5 % (21-51); MEAN CORPUSCULAR HGB CONC 34.4 % (33.0-36.5); MEAN CORPUSCULAR VOLUME 87.1 FL (78-98); MEAN PLATELET VOLUME 7.8 FL (7.4-10.4); MONOCYTES # (AUTO) 0.2 X10'3 (0-0.9); MONOCYTES % (AUTO) 1.9 % (2-12); NEUTROPHILS # (AUTO) 8.3 X10'3 (1.8-7.7); NEUTROPHILS % (AUTO) 95.1 % (42-75); RED CELL DISTRIBUTION WIDTH 14.5 % (11.5-14.5); WHITE BLOOD COUNT 8.7 X10'3 (4.5-11.0)
[2017-07-25 12:01] LABS: PLATELET COUNT 49 X10'3 (140-440)
[2017-07-25 18:16] LABS: POTASSIUM 2.9 MMOL/L (3.5-5.1)
[2017-07-25 18:51] LABS: BASOPHILS % (AUTO) 0 % (0-1); EOSINOPHILS # (AUTO) 0.2 X10'3 (0-0.9); EOSINOPHILS % (AUTO) 2.1 % (0-6); HEMATOCRIT 25.8 % (35.0-45.0); HEMOGLOBIN 8.8 g/dl (12.0-16.0); LYMPHOCYTES # (AUTO) 0.1 X10'3 (1.1-4.8); LYMPHOCYTES % (AUTO) 1.8 % (21-51); MEAN CORPUSCULAR HEMOGLOBIN 29.7 PG (27.0-31.0); MEAN CORPUSCULAR HGB CONC 33.9 % (33.0-36.5); MEAN CORPUSCULAR VOLUME 87.6 FL (78-98); MEAN PLATELET VOLUME 7.9 FL (7.4-10.4); MONOCYTES # (AUTO) 0.1 X10'3 (0-0.9); MONOCYTES % (AUTO) 1.7 % (2-12); NEUTROPHILS # (AUTO) 7.7 X10'3 (1.8-7.7); NEUTROPHILS % (AUTO) 94.4 % (42-75); PLATELET COUNT 53 X10'3 (140-440); RED BLOOD COUNT 2.95 X10'6 (4.20-5.60); RED CELL DISTRIBUTION WIDTH 14.4 % (11.5-14.5); WHITE BLOOD COUNT 8.1 X10'3 (4.5-11.0)
[2017-07-25] MEDS ORDERED: morphine/NS 100mg/100ml bag 100 ML IV SCH (20:10)
[2017-07-25 20:13] LABS: VANCOMYCIN,TROUGH 19.1 UG/ML (6.0-14.0)
[2017-07-25] MEDS ORDERED: CADD PCA waste documentation MC SCH (20:20)
[2017-07-25] MEDS: desmopressin 0.1mg/ml nasal spray 5ml btl NS SCH (20:36)
[2017-07-25] MEDS: VANCOMYCIN 750MG IV in NS 250 ML IV SCH (20:37)
[2017-07-25] MEDS: MORPHINE CADD 5 MG/ML 50ML IV SCH ×2 (21:20→22:24)
[2017-07-26] VITALS (24 sets, daily range): BP systolic 98–170; BP diastolic 45–98
[2017-07-26] MEDS: MORPHINE CADD 5 MG/ML 50ML IV SCH ×4 (01:00→07:00)
[2017-07-26] MEDS: midazolam 100mg in NS 100ml 100 ML IV PRN ×3 (01:11→16:00)
[2017-07-26] MEDS: mineral oil/petrolatum ophthal oint EACHEYE SCH ×4 (01:58→20:06)
[2017-07-26] MEDS: diltiazem 30mg tablet OGT SCH ×4 (01:58→20:06)
[2017-07-26] MEDS: hydrocortisone sod succ/PF 100mg/2ml inj. IV SCH ×4 (01:58→23:30)
[2017-07-26] MEDS: insulin regular, human vial - multi-dose SQ SCH ×4 (02:11→20:38)
[2017-07-26 03:07] LABS: MEAN CORPUSCULAR HEMOGLOBIN 30.2 PG (27.0-31.0); MEAN CORPUSCULAR HGB CONC 34.5 % (33.0-36.5); MEAN CORPUSCULAR VOLUME 87.6 FL (78-98); MEAN PLATELET VOLUME 7.9 FL (7.4-10.4); PLATELET COUNT 51 X10'3 (140-440); RED BLOOD COUNT 2.97 X10'6 (4.20-5.60); RED CELL DISTRIBUTION WIDTH 14.9 % (11.5-14.5)
[2017-07-26 03:15] LABS: ALANINE AMINOTRANSFERASE 116 U/L (12-78); ALBUMIN 2.9 G/DL (3.4-5.0); ALBUMIN/GLOBULIN RATIO 1.4 (1.1-1.5); ALKALINE PHOSPHATASE 30 IU/L (46-116); ANION GAP 9 (8-16); ASPARTATE AMINO TRANSFERASE 46 U/L (10-37); BLOOD UREA NITROGEN 57 MG/DL (7-18); CALCIUM 8.6 MG/DL (8.5-10.1); CHLORIDE 109 MMOL/L (99-107); GLUCOSE 171 MG/DL (70-104); MAGNESIUM 1.7 MG/DL (1.5-2.4); POTASSIUM 3.2 MMOL/L (3.5-5.1); SODIUM 147 MMOL/L (135-145); eGFR 56 ML/MIN
[2017-07-26] MEDS ORDERED: potassium Cl 40MEQ/250ML bag 250 ML IV ONE (03:29)
[2017-07-26] MEDS: potassium Cl 40MEQ/250ML bag 250 ML IV PRN ×2 (03:32→12:58)
[2017-07-26 03:33] LABS: PLATELET ESTIMATE DECREASED; TOTAL CELLS COUNTED 100
[2017-07-26] MEDS: ipratropium/albuterol 3ml nebule NEB SCH ×6 (03:36→23:28)
[2017-07-26 04:01] LABS: ABG BASE EXCESS 4.6 mmol/L (-2.0-3.0); ABG HCO3 27.2 mmol/L (22.0-26.0); ABG OXYGEN SATURATION 92.7 % (95-98); ABG PCO2 (T) 32.2 mmHg (32.0-45.0); ABG PH (T) 7.542 (7.350-7.450); ABG PO2 (T) 62.1 mmHg (83-108); FCOHb 0.3 % (0.5-1.5); FMetHb 0.3 % (0.3-1.12); FO2Hb 92.1 % (94-100); MINUTE VOLUME 9 L/min; PATIENT TEMPERATURE 36.6; PEEP 5 cm H2O; RESPIRATORY RATE 24 b/min; RESPIRATORY RATE (OBSERVED) 24 b/min; TIDAL VOLUME 400 mL; TOTAL HEMOGLOBIN 9.6 G/dl (12.0-16.0)
[2017-07-26] MEDS: furosemide 40mg/4ml inj IV SCH ×3 (07:31→20:36)
[2017-07-26] MEDS: desmopressin 0.1mg/ml nasal spray 5ml btl NS SCH (07:31)
[2017-07-26] MEDS: WATER IV SCH ×3 (07:32→23:30)
[2017-07-26] MEDS: CEFTAZIDIME IV SCH ×3 (07:32→23:30)
[2017-07-26] MEDS: lactobacillus rhamnosus 10,000 MMU CELLS/CAPSULE PO SCH ×2 (07:32→20:06)
[2017-07-26] MEDS: DEXTROSE 5% IV SCH ×3 (07:32→23:30)
[2017-07-26] MEDS: atorvastatin 20mg tablet PO SCH (07:33)
[2017-07-26] MEDS: citalopram 20mg tablet OGT SCH (07:33)
[2017-07-26] MEDS: QUEtiapine 25mg tablet PO SCH (07:33)
[2017-07-26] MEDS: famotidine/PF 10 mg/ml inj IV SCH ×2 (07:40→20:06)
[2017-07-26] MEDS: FENTANYL-0.9 % NACL/PF 100 ML IV PRN ×2 (09:14→23:31)
[2017-07-26] MEDS: potassium Cl oral solution 20 MEQ/15 ML PO SCH ×2 (12:58→20:37)
[2017-07-26] MEDS: VANCOMYCIN 750MG IV in NS 250 ML IV SCH (20:06)
[2017-07-27] VITALS (23 sets, daily range): BP systolic 77–223; BP diastolic 38–106
[2017-07-27] MEDS: hydrALAZINE 20mg/ml inj. IV PRN ×2 (01:13→21:41)
[2017-07-27] MEDS: diltiazem 30mg tablet OGT SCH ×4 (01:13→20:20)
[2017-07-27] MEDS: mineral oil/petrolatum ophthal oint EACHEYE SCH ×4 (01:13→20:20)
[2017-07-27] MEDS: insulin regular, human vial - multi-dose SQ SCH ×4 (02:17→20:18)
[2017-07-27] MEDS: midazolam 100mg in NS 100ml 100 ML IV PRN ×3 (02:47→20:50)
[2017-07-27] MEDS: ipratropium/albuterol 3ml nebule NEB SCH ×6 (03:30→23:14)
[2017-07-27 03:51] LABS: ABG BASE EXCESS 1.2 mmol/L (-2.0-3.0); ABG HCO3 24.7 mmol/L (22.0-26.0); ABG OXYGEN SATURATION 90.1 % (95-98); ABG PCO2 (T) 34.1 mmHg (32.0-45.0); ABG PH (T) 7.475 (7.350-7.450); ABG PO2 (T) 54.4 mmHg (83-108); ALLEN'S TEST Positive; FCOHb 0.6 % (0.5-1.5); FMetHb 0.1 % (0.3-1.12); FO2Hb 89.5 % (94-100); MINUTE VOLUME 7 L/min; PATIENT TEMPERATURE 36.4; PEEP 5 cm H2O; RESPIRATORY RATE 16 b/min; RESPIRATORY RATE (OBSERVED) 18 b/min; TIDAL VOLUME 400 mL; TOTAL HEMOGLOBIN 11.8 G/dl (12.0-16.0)
[2017-07-27 04:17] LABS: HEMATOCRIT 32.4 % (35.0-45.0); MEAN CORPUSCULAR HEMOGLOBIN 30.2 PG (27.0-31.0); MEAN CORPUSCULAR HGB CONC 33.9 % (33.0-36.5); MEAN CORPUSCULAR VOLUME 89.1 FL (78-98); PLATELET COUNT 65 X10'3 (140-440); RED BLOOD COUNT 3.64 X10'6 (4.20-5.60); RED CELL DISTRIBUTION WIDTH 15.3 % (11.5-14.5); WHITE BLOOD COUNT 12.3 X10'3 (4.5-11.0)
[2017-07-27 04:25] LABS: ANION GAP 7 (8-16); BLOOD UREA NITROGEN 60 MG/DL (7-18); BUN/CREATININE RATIO 66.7 (6.6-38.0); CALCIUM 9.2 MG/DL (8.5-10.1); CHLORIDE 109 MMOL/L (99-107); GLUCOSE 134 MG/DL (70-104); POTASSIUM 3.5 MMOL/L (3.5-5.1); SODIUM 148 MMOL/L (135-145); TOTAL CARBON DIOXIDE 31.6 MMOL/L (24-32); eGFR 63 ML/MIN
[2017-07-27 05:03] LABS: TOTAL CELLS COUNTED 100
[2017-07-27 05:04] LABS: PLATELET ESTIMATE DECREASED; POLYCHROMASIA FEW
[2017-07-27 05:05] LABS: ANISOCYTOSIS FEW
[2017-07-27] MEDS: furosemide 40mg/4ml inj IV SCH (08:40)
[2017-07-27] MEDS: hydrocortisone sod succ/PF 100mg/2ml inj. IV SCH ×2 (08:40→16:10)
[2017-07-27] MEDS: potassium Cl oral solution 20 MEQ/15 ML PO SCH ×3 (08:40→20:20)
[2017-07-27] MEDS: lactobacillus rhamnosus 10,000 MMU CELLS/CAPSULE PO SCH ×2 (08:40→20:20)
[2017-07-27] MEDS: atorvastatin 20mg tablet PO SCH (08:41)
[2017-07-27] MEDS: QUEtiapine 25mg tablet PO SCH (08:41)
[2017-07-27] MEDS: citalopram 20mg tablet OGT SCH (08:41)
[2017-07-27] MEDS: methylnaltrexone br 12mg/0.6ml inj***SubQ only SQ SCH (08:41)
[2017-07-27] MEDS: DEXTROSE 5% IV SCH ×2 (09:13→16:10)
[2017-07-27] MEDS: CEFTAZIDIME IV SCH ×2 (09:13→16:10)
[2017-07-27] MEDS: WATER IV SCH ×2 (09:13→16:10)
[2017-07-27] MEDS ORDERED: furosemide inj 100 MG in normal saline 100ml IV soln 90 ML IV SCH (10:45)
[2017-07-27] MEDS: furosemide inj 100 ML IV SCH (12:31)
[2017-07-27] MEDS: FENTANYL-0.9 % NACL/PF 100 ML IV PRN ×2 (12:50→19:28)
[2017-07-27] MEDS: famotidine/PF 10 mg/ml inj IV SCH ×2 (15:30→20:00)
[2017-07-27 16:42] LABS: CHLORIDE 110 MMOL/L (99-107); POTASSIUM 3.1 MMOL/L (3.5-5.1); SODIUM 149 MMOL/L (135-145)
[2017-07-27 17:07] LABS: ALBUMIN 2.6 G/DL (3.4-5.0); ANION GAP 7 (8-16); BLOOD UREA NITROGEN 58 MG/DL (7-18); BUN/CREATININE RATIO 59.8 (6.6-38.0); CALCIUM 8.9 MG/DL (8.5-10.1); CREATININE 0.97 MG/DL (0.40-0.90); GLUCOSE 141 MG/DL (70-104); MAGNESIUM 1.6 MG/DL (1.5-2.4); PHOSPHORUS 2.1 MG/DL (2.3-4.5); TOTAL CARBON DIOXIDE 32.3 MMOL/L (24-32); eGFR 58 ML/MIN
[2017-07-27] MEDS ORDERED: VANCOMYCIN LEVEL IV NR (19:30)
[2017-07-27] MEDS: potassium Cl 40MEQ/250ML bag 250 ML IV PRN (20:19)
[2017-07-27] MEDS: VANCOMYCIN 750MG IV in NS 250 ML IV SCH (20:20)
[2017-07-27] MEDS ORDERED: enalaprilat dihydrate 2.5mg/2ml vial IV PRN (22:25)
[2017-07-27] MEDS: lisinopril 10 MG tablet PO SCH (23:20)
[2017-07-27] MEDS: atenolol 25mg tablet PO SCH (23:20)
[2017-07-27 23:32] LABS: ALBUMIN 2.9 G/DL (3.4-5.0); ANION GAP 6 (8-16); BLOOD UREA NITROGEN 57 MG/DL (7-18); BUN/CREATININE RATIO 65.5 (6.6-38.0); CALCIUM 8.9 MG/DL (8.5-10.1); CHLORIDE 108 MMOL/L (99-107); CREATININE 0.87 MG/DL (0.40-0.90); GLUCOSE 157 MG/DL (70-104); MAGNESIUM 1.7 MG/DL (1.5-2.4); PHOSPHORUS 2.6 MG/DL (2.3-4.5); POTASSIUM 3.8 MMOL/L (3.5-5.1); SODIUM 148 MMOL/L (135-145); TOTAL CARBON DIOXIDE 34.2 MMOL/L (24-32); eGFR 65 ML/MIN
[2017-07-28] VITALS (23 sets, daily range): BP systolic 75–187; BP diastolic 46–89
[2017-07-28] MEDS: hydrocortisone sod succ/PF 100mg/2ml inj. IV SCH ×3 (01:06→16:42)
[2017-07-28] MEDS: FENTANYL-0.9 % NACL/PF 100 ML IV PRN ×3 (01:06→22:46)
[2017-07-28] MEDS: CEFTAZIDIME IV SCH ×3 (01:07→16:42)
[2017-07-28] MEDS: WATER IV SCH ×3 (01:07→16:42)
[2017-07-28] MEDS: DEXTROSE 5% IV SCH ×3 (01:07→16:42)
[2017-07-28] MEDS: diltiazem 30mg tablet OGT SCH ×2 (02:06→08:11)
[2017-07-28] MEDS: mineral oil/petrolatum ophthal oint EACHEYE SCH ×4 (02:06→22:36)
[2017-07-28] MEDS: insulin regular, human vial - multi-dose SQ SCH ×4 (02:06→22:22)
[2017-07-28] MEDS: midazolam 100mg in NS 100ml 100 ML IV PRN ×2 (02:24→10:47)
[2017-07-28] MEDS: ipratropium/albuterol 3ml nebule NEB SCH ×6 (03:40→23:00)
[2017-07-28 04:00] LABS: ABG BASE EXCESS 4.5 mmol/L (-2.0-3.0); ABG HCO3 28.4 mmol/L (22.0-26.0); ABG OXYGEN SATURATION 91.7 % (95-98); ABG PCO2 (T) 39.3 mmHg (32.0-45.0); ABG PH (T) 7.476 (7.350-7.450); ABG PO2 (T) 59.8 mmHg (83-108); ALLEN'S TEST Positive; FCOHb 0.5 % (0.5-1.5); FMetHb 0.3 % (0.3-1.12); MINUTE VOLUME 7 L/min; PATIENT TEMPERATURE 36.9; PEEP 5 cm H2O; RESPIRATORY RATE 16 b/min; RESPIRATORY RATE (OBSERVED) 16 b/min; TIDAL VOLUME 450 mL; TOTAL HEMOGLOBIN 11.4 G/dl (12.0-16.0)
[2017-07-28 05:04] LABS: HEMATOCRIT 29.7 % (35.0-45.0); HEMOGLOBIN 10.1 g/dl (12.0-16.0); MEAN CORPUSCULAR HEMOGLOBIN 30.4 PG (27.0-31.0); MEAN CORPUSCULAR HGB CONC 33.8 % (33.0-36.5); MEAN CORPUSCULAR VOLUME 89.8 FL (78-98); MEAN PLATELET VOLUME 7.3 FL (7.4-10.4); RED BLOOD COUNT 3.31 X10'6 (4.20-5.60); WHITE BLOOD COUNT 6.4 X10'3 (4.5-11.0)
[2017-07-28 05:15] LABS: ALBUMIN 2.3 G/DL (3.4-5.0); ANION GAP 7 (8-16); BLOOD UREA NITROGEN 64 MG/DL (7-18); BUN/CREATININE RATIO 64.6 (6.6-38.0); CALCIUM 8.6 MG/DL (8.5-10.1); CHLORIDE 109 MMOL/L (99-107); CREATININE 0.99 MG/DL (0.40-0.90); GLUCOSE 184 MG/DL (70-104); MAGNESIUM 1.7 MG/DL (1.5-2.4); PHOSPHORUS 2.7 MG/DL (2.3-4.5); POTASSIUM 3.2 MMOL/L (3.5-5.1); SODIUM 148 MMOL/L (135-145); TOTAL CARBON DIOXIDE 32.3 MMOL/L (24-32); eGFR 56 ML/MIN
[2017-07-28 05:31] LABS: PLATELET COUNT 49 X10'3 (140-440)
[2017-07-28] MEDS: potassium Cl 40MEQ/250ML bag 250 ML IV PRN (05:56)
[2017-07-28 06:44] LABS: ANISOCYTOSIS 1+; PLATELET ESTIMATE DECREASED; TOTAL CELLS COUNTED 100
[2017-07-28 06:45] LABS: POLYCHROMASIA FEW
[2017-07-28] MEDS: lisinopril 10 MG tablet PO SCH (08:00)
[2017-07-28] MEDS: lactobacillus rhamnosus 10,000 MMU CELLS/CAPSULE PO SCH ×2 (08:12→22:29)
[2017-07-28] MEDS: potassium Cl oral solution 20 MEQ/15 ML PO SCH ×3 (08:12→22:29)
[2017-07-28] MEDS: citalopram 20mg tablet OGT SCH (08:12)
[2017-07-28] MEDS: atorvastatin 20mg tablet PO SCH (08:12)
[2017-07-28] MEDS: QUEtiapine 25mg tablet PO SCH (08:12)
[2017-07-28] MEDS: famotidine/PF 10 mg/ml inj IV SCH ×2 (08:13→22:26)
[2017-07-28] MEDS: atenolol 25mg tablet PO SCH (08:49)
[2017-07-28] MEDS ORDERED: NORepinephrine 8mg/ 250ml NS 250 ML IV PRN (09:45)
[2017-07-28 12:48] LABS: ALBUMIN 1.9 G/DL (3.4-5.0); ANION GAP 6 (8-16); BLOOD UREA NITROGEN 69 MG/DL (7-18); BUN/CREATININE RATIO 72.6 (6.6-38.0); CHLORIDE 112 MMOL/L (99-107); CREATININE 0.95 MG/DL (0.40-0.90); GLUCOSE 172 MG/DL (70-104); MAGNESIUM 1.6 MG/DL (1.5-2.4); PHOSPHORUS 2.1 MG/DL (2.3-4.5); POTASSIUM 3.6 MMOL/L (3.5-5.1); SODIUM 149 MMOL/L (135-145); TOTAL CARBON DIOXIDE 30.8 MMOL/L (24-32); eGFR 59 ML/MIN
[2017-07-28 17:58] LABS: ALBUMIN 2.4 G/DL (3.4-5.0); ANION GAP 7 (8-16); BLOOD UREA NITROGEN 69 MG/DL (7-18); CALCIUM 8.9 MG/DL (8.5-10.1); CHLORIDE 107 MMOL/L (99-107); CREATININE 0.92 MG/DL (0.40-0.90); GLUCOSE 163 MG/DL (70-104); MAGNESIUM 1.8 MG/DL (1.5-2.4); PHOSPHORUS 2.1 MG/DL (2.3-4.5); POTASSIUM 3.2 MMOL/L (3.5-5.1); SODIUM 147 MMOL/L (135-145); TOTAL CARBON DIOXIDE 33.5 MMOL/L (24-32); eGFR 61 ML/MIN
[2017-07-28] MEDS: VANCOMYCIN 750MG IV in NS 250 ML IV SCH (22:26)
[2017-07-28] MEDS: furosemide inj 100 ML IV SCH (22:35)
[2017-07-28 23:38] LABS: ALBUMIN 1.9 G/DL (3.4-5.0); ANION GAP 7 (8-16); BLOOD UREA NITROGEN 65 MG/DL (7-18); BUN/CREATININE RATIO 69.1 (6.6-38.0); CALCIUM 7.6 MG/DL (8.5-10.1); CHLORIDE 113 MMOL/L (99-107); CREATININE 0.94 MG/DL (0.40-0.90); GLUCOSE 140 MG/DL (70-104); MAGNESIUM 1.4 MG/DL (1.5-2.4); PHOSPHORUS 2.3 MG/DL (2.3-4.5); SODIUM 151 MMOL/L (135-145); TOTAL CARBON DIOXIDE 31.3 MMOL/L (24-32); eGFR 60 ML/MIN
[2017-07-28 23:41] LABS: POTASSIUM 2.8 MMOL/L (3.5-5.1)
[2017-07-29] VITALS (24 sets, daily range): BP systolic 71–205; BP diastolic 49–108
[2017-07-29] MEDS: potassium Cl 40MEQ/250ML bag 250 ML IV PRN ×2 (00:03→02:11)
[2017-07-29] MEDS: WATER IV SCH ×3 (00:16→18:39)
[2017-07-29] MEDS: CEFTAZIDIME IV SCH ×3 (00:16→18:39)
[2017-07-29] MEDS: DEXTROSE 5% IV SCH ×3 (00:16→18:39)
[2017-07-29] MEDS: hydrocortisone sod succ/PF 100mg/2ml inj. IV SCH ×3 (00:19→18:40)
[2017-07-29] MEDS: midazolam 100mg in NS 100ml 100 ML IV PRN ×2 (01:19→15:25)
[2017-07-29] MEDS: mineral oil/petrolatum ophthal oint EACHEYE SCH ×4 (02:00→21:30)
[2017-07-29] MEDS: insulin regular, human vial - multi-dose SQ SCH ×4 (02:03→21:15)
[2017-07-29 02:06] LABS: ABG BASE EXCESS 4.6 mmol/L (-2.0-3.0); ABG HCO3 30.9 mmol/L (22.0-26.0); ABG OXYGEN SATURATION 90.2 % (95-98); ABG PCO2 (T) 54.4 mmHg (32.0-45.0); ABG PH (T) 7.372 (7.350-7.450); ABG PO2 (T) 61.4 mmHg (83-108); ALLEN'S TEST Positive; FCOHb 0.5 % (0.5-1.5); FMetHb 0.1 % (0.3-1.12); FO2Hb 89.7 % (94-100); MINUTE VOLUME 8 L/min; PEEP 5 cm H2O; RESPIRATORY RATE 16 b/min; RESPIRATORY RATE (OBSERVED) 16 b/min; TIDAL VOLUME 450 mL; TOTAL HEMOGLOBIN 11.2 G/dl (12.0-16.0)
[2017-07-29] MEDS: ipratropium/albuterol 3ml nebule NEB SCH ×6 (03:57→23:41)
[2017-07-29] MEDS: QUEtiapine 25mg tablet PO SCH (07:22)
[2017-07-29] MEDS: potassium Cl oral solution 20 MEQ/15 ML PO SCH ×3 (07:22→21:23)
[2017-07-29] MEDS: lactobacillus rhamnosus 10,000 MMU CELLS/CAPSULE PO SCH ×2 (07:22→20:00)
[2017-07-29] MEDS: citalopram 20mg tablet OGT SCH (07:22)
[2017-07-29] MEDS: atorvastatin 20mg tablet PO SCH (07:23)
[2017-07-29] MEDS: famotidine/PF 10 mg/ml inj IV SCH ×2 (07:23→21:25)
[2017-07-29] MEDS: methylnaltrexone br 12mg/0.6ml inj***SubQ only SQ SCH (07:45)
[2017-07-29 08:17] LABS: ALANINE AMINOTRANSFERASE 81 U/L (12-78); ALBUMIN 2.2 G/DL (3.4-5.0); ALBUMIN/GLOBULIN RATIO 0.7 (1.1-1.5); ALKALINE PHOSPHATASE 46 IU/L (46-116); ANION GAP 3 (8-16); ASPARTATE AMINO TRANSFERASE 26 U/L (10-37); BILIRUBIN,TOTAL 0.7 MG/DL (0.1-1.0); BLOOD UREA NITROGEN 68 MG/DL (7-18); BUN/CREATININE RATIO 78.2 (6.6-38.0); CALCIUM 8.7 MG/DL (8.5-10.1); CHLORIDE 112 MMOL/L (99-107); CREATININE 0.87 MG/DL (0.40-0.90); GLUCOSE 117 MG/DL (70-104); MAGNESIUM 1.7 MG/DL (1.5-2.4); PHOSPHORUS 3.1 MG/DL (2.3-4.5); POTASSIUM 4.1 MMOL/L (3.5-5.1); SODIUM 150 MMOL/L (135-145); TOTAL CARBON DIOXIDE 34.9 MMOL/L (24-32); TOTAL PROTEIN 5.3 G/DL (6.4-8.2); eGFR 65 ML/MIN
[2017-07-29 08:24] LABS: BASOPHILS % (AUTO) 0 % (0-1); EOSINOPHILS % (AUTO) 0 % (0-6); HEMATOCRIT 32.6 % (35.0-45.0); LYMPHOCYTES # (AUTO) 0.2 X10'3 (1.1-4.8); MEAN CORPUSCULAR HEMOGLOBIN 30.3 PG (27.0-31.0); MEAN CORPUSCULAR HGB CONC 33.8 % (33.0-36.5); MEAN CORPUSCULAR VOLUME 89.7 FL (78-98); MEAN PLATELET VOLUME 7.7 FL (7.4-10.4); MONOCYTES % (AUTO) 0.7 % (2-12); NEUTROPHILS # (AUTO) 5.1 X10'3 (1.8-7.7); NEUTROPHILS % (AUTO) 96.3 % (42-75); PLATELET COUNT 52 X10'3 (140-440); RED BLOOD COUNT 3.63 X10'6 (4.20-5.60); RED CELL DISTRIBUTION WIDTH 15.8 % (11.5-14.5); WHITE BLOOD COUNT 5.3 X10'3 (4.5-11.0)
[2017-07-29 08:37] LABS: TOTAL CELLS COUNTED 100
[2017-07-29 08:38] LABS: ANISOCYTOSIS 1+; PLATELET ESTIMATE DECREASED; POLYCHROMASIA 1+
[2017-07-29] MEDS: FENTANYL-0.9 % NACL/PF 100 ML IV PRN (12:32)
[2017-07-29 14:15] LABS: ABG BASE EXCESS 2.8 mmol/L (-2.0-3.0); ABG HCO3 29.4 mmol/L (22.0-26.0); ABG OXYGEN SATURATION 79.4 % (95-98); ABG PCO2 (T) 56.9 mmHg (32.0-45.0); ABG PH (T) 7.335 (7.350-7.450); ABG PO2 (T) 46.9 mmHg (83-108); FCOHb 1.1 % (0.5-1.5); FO2Hb 78.5 % (94-100); MINUTE VOLUME 10 L/min; PATIENT TEMPERATURE 37.7; PEEP 10 cm H2O; RESPIRATORY RATE 16 b/min; RESPIRATORY RATE (OBSERVED) 22 b/min; TIDAL VOLUME 450 mL; TOTAL HEMOGLOBIN 11.3 G/dl (12.0-16.0)
[2017-07-29 14:30] LABS: ABG BASE EXCESS -0.3 mmol/L (-2.0-3.0); ABG HCO3 25.9 mmol/L (22.0-26.0); ABG OXYGEN SATURATION 83.3 % (95-98); ABG PCO2 (T) 50.5 mmHg (32.0-45.0); ABG PH (T) 7.331 (7.350-7.450); ABG PO2 (T) 51.5 mmHg (83-108); ALLEN'S TEST Positive; FCOHb 0.8 % (0.5-1.5); FO2Hb 82.6 % (94-100); MINUTE VOLUME 11 L/min; PATIENT TEMPERATURE 37.7; PEEP 10 cm H2O; RESPIRATORY RATE 16 b/min; RESPIRATORY RATE (OBSERVED) 19 b/min; TIDAL VOLUME 450 mL; TOTAL HEMOGLOBIN 11.2 G/dl (12.0-16.0)
[2017-07-29 16:15] LABS: ALBUMIN 1.9 G/DL (3.4-5.0); ANION GAP 5 (8-16); BLOOD UREA NITROGEN 74 MG/DL (7-18); BUN/CREATININE RATIO 85.1 (6.6-38.0); CALCIUM 8.6 MG/DL (8.5-10.1); CHLORIDE 111 MMOL/L (99-107); CREATININE 0.87 MG/DL (0.40-0.90); GLUCOSE 105 MG/DL (70-104); MAGNESIUM 1.8 MG/DL (1.5-2.4); PHOSPHORUS 3.5 MG/DL (2.3-4.5); SODIUM 149 MMOL/L (135-145); TOTAL CARBON DIOXIDE 32.9 MMOL/L (24-32); eGFR 65 ML/MIN
[2017-07-29 21:16] LABS: ABG BASE EXCESS 2.2 mmol/L (-2.0-3.0); ABG HCO3 29.2 mmol/L (22.0-26.0); ABG OXYGEN SATURATION 90.6 % (95-98); ABG PCO2 (T) 57.1 mmHg (32.0-45.0); ABG PH (T) 7.327 (7.350-7.450); ABG PO2 (T) 62.5 mmHg (83-108); ALLEN'S TEST Positive; FCOHb 0.7 % (0.5-1.5); FMetHb 0.3 % (0.3-1.12); FO2Hb 89.7 % (94-100); MINUTE VOLUME 10 L/min; PATIENT TEMPERATURE 37.1; PEEP 14 cm H2O; RESPIRATORY RATE 16 b/min; RESPIRATORY RATE (OBSERVED) 18 b/min; TIDAL VOLUME 450 mL; TOTAL HEMOGLOBIN 11.6 G/dl (12.0-16.0)
[2017-07-29] MEDS: VANCOMYCIN 750MG IV in NS 250 ML IV SCH (21:29)
[2017-07-29 21:53] LABS: ANION GAP 6 (8-16); BLOOD UREA NITROGEN 78 MG/DL (7-18); BUN/CREATININE RATIO 72.9 (6.6-38.0); CALCIUM 8.6 MG/DL (8.5-10.1); CHLORIDE 110 MMOL/L (99-107); CREATININE 1.07 MG/DL (0.40-0.90); GLUCOSE 158 MG/DL (70-104); MAGNESIUM 1.8 MG/DL (1.5-2.4); PHOSPHORUS 3.4 MG/DL (2.3-4.5); SODIUM 149 MMOL/L (135-145); TOTAL CARBON DIOXIDE 32.8 MMOL/L (24-32); eGFR 51 ML/MIN
[2017-07-30] VITALS (16 sets, daily range): BP systolic 66–168; BP diastolic 42–95
[2017-07-30] MEDS: hydrocortisone sod succ/PF 100mg/2ml inj. IV SCH ×3 (00:25→16:19)
[2017-07-30] MEDS: cefTAZidime inj. 1 GM in normal saline 100ml IV soln 100 ML IV SCH ×3 (00:27→16:20)
[2017-07-30] MEDS: mineral oil/petrolatum ophthal oint EACHEYE SCH ×3 (02:00→14:00)
[2017-07-30] MEDS: ipratropium/albuterol 3ml nebule NEB SCH ×4 (02:37→16:25)
[2017-07-30 02:52] LABS: ANION GAP 6 (8-16); BLOOD UREA NITROGEN 85 MG/DL (7-18); BUN/CREATININE RATIO 84.2 (6.6-38.0); CALCIUM 8.7 MG/DL (8.5-10.1); CHLORIDE 111 MMOL/L (99-107); CREATININE 1.01 MG/DL (0.40-0.90); GLUCOSE 149 MG/DL (70-104); MAGNESIUM 1.9 MG/DL (1.5-2.4); PHOSPHORUS 3.7 MG/DL (2.3-4.5); POTASSIUM 4.4 MMOL/L (3.5-5.1); SODIUM 149 MMOL/L (135-145); TOTAL CARBON DIOXIDE 32.3 MMOL/L (24-32); eGFR 55 ML/MIN
[2017-07-30 03:00] LABS: ABG BASE EXCESS 0.1 mmol/L (-2.0-3.0); ABG HCO3 26.9 mmol/L (22.0-26.0); ABG OXYGEN SATURATION 91.8 % (95-98); ABG PCO2 (T) 52.7 mmHg (32.0-45.0); ABG PH (T) 7.324 (7.350-7.450); ABG PO2 (T) 66.5 mmHg (83-108); ALLEN'S TEST Positive; FCOHb 0.7 % (0.5-1.5); FO2Hb 91.2 % (94-100); PATIENT TEMPERATURE 36.7; PEEP 14 cm H2O; RESPIRATORY RATE 16 b/min; RESPIRATORY RATE (OBSERVED) 16 b/min; TIDAL VOLUME 450 mL; TOTAL HEMOGLOBIN 11.8 G/dl (12.0-16.0)
[2017-07-30 03:53] LABS: ANISOCYTOSIS 1+; PLATELET ESTIMATE DECREASED; POLYCHROMASIA FEW; TOTAL CELLS COUNTED 100
[2017-07-30] MEDS: midazolam 100mg in NS 100ml 100 ML IV PRN (05:02)
[2017-07-30] MEDS: FENTANYL-0.9 % NACL/PF 100 ML IV PRN ×2 (05:10→13:07)
[2017-07-30] MEDS: furosemide inj 100 ML IV SCH (05:34)
[2017-07-30 08:09] LABS: ANION GAP 10 (8-16); BLOOD UREA NITROGEN 87 MG/DL (7-18); BUN/CREATININE RATIO 82.9 (6.6-38.0); CALCIUM 8.8 MG/DL (8.5-10.1); CHLORIDE 111 MMOL/L (99-107); CREATININE 1.05 MG/DL (0.40-0.90); GLUCOSE 149 MG/DL (70-104); PHOSPHORUS 4.2 MG/DL (2.3-4.5); POTASSIUM 4.7 MMOL/L (3.5-5.1); SODIUM 150 MMOL/L (135-145); TOTAL CARBON DIOXIDE 29.5 MMOL/L (24-32); eGFR 53 ML/MIN
[2017-07-30] MEDS: lactobacillus rhamnosus 10,000 MMU CELLS/CAPSULE PO SCH (08:10)
[2017-07-30] MEDS: citalopram 20mg tablet OGT SCH (08:10)
[2017-07-30] MEDS: famotidine/PF 10 mg/ml inj IV SCH (08:10)
[2017-07-30] MEDS: potassium Cl oral solution 20 MEQ/15 ML PO SCH ×2 (08:11→13:00)
[2017-07-30 08:26] LABS: BASOPHILS % (AUTO) 0.6 % (0-1); EOSINOPHILS % (AUTO) 0 % (0-6); HEMATOCRIT 32.8 % (35.0-45.0); HEMOGLOBIN 10.9 g/dl (12.0-16.0); LYMPHOCYTES # (AUTO) 0.2 X10'3 (1.1-4.8); LYMPHOCYTES % (AUTO) 5.5 % (21-51); MEAN CORPUSCULAR HEMOGLOBIN 30.2 PG (27.0-31.0); MEAN CORPUSCULAR HGB CONC 33.4 % (33.0-36.5); MEAN CORPUSCULAR VOLUME 90.4 FL (78-98); MEAN PLATELET VOLUME 8.7 FL (7.4-10.4); MONOCYTES # (AUTO) 0.1 X10'3 (0-0.9); MONOCYTES % (AUTO) 2.7 % (2-12); NEUTROPHILS # (AUTO) 2.5 X10'3 (1.8-7.7); NEUTROPHILS % (AUTO) 91.2 % (42-75); PLATELET COUNT 55 X10'3 (140-440); RED BLOOD COUNT 3.62 X10'6 (4.20-5.60); RED CELL DISTRIBUTION WIDTH 16.2 % (11.5-14.5); WHITE BLOOD COUNT 2.8 X10'3 (4.5-11.0)
[2017-07-30 10:35] LABS: ABG BASE EXCESS -3.5 mmol/L (-2.0-3.0); ABG HCO3 23.9 mmol/L (22.0-26.0); ABG OXYGEN SATURATION 90.9 % (95-98); ABG PCO2 (T) 52.4 mmHg (32.0-45.0); ABG PH (T) 7.275 (7.350-7.450); ABG PO2 (T) 66.3 mmHg (83-108); FCOHb 0.7 % (0.5-1.5); FMetHb 0.1 % (0.3-1.12); FO2Hb 90.2 % (94-100); MINUTE VOLUME 7 L/min; PATIENT TEMPERATURE 36.6; PEEP 14 cm H2O; RESPIRATORY RATE 16 b/min; RESPIRATORY RATE (OBSERVED) 16 b/min; TIDAL VOLUME 450 mL; TOTAL HEMOGLOBIN 11.7 G/dl (12.0-16.0)
[2017-07-30 12:54] LABS: CLARITY,URINE CLOUDY (Clear); GLUCOSE, URINE NEGATIVE (Neg); KETONES,URINE NEGATIVE (Neg); LEUKOCYTE ESTERASE ,URINE TRACE (Neg); NITRITES, URINE NEGATIVE (Neg); OCCULT BLOOD,URINE LARGE (Neg); PROTEIN,URINE 100 mg/dl (Neg); UROBILINOGEN,URINE 0.2 E.U/dL (0.2-1.0)
[2017-07-30 12:55] LABS: COLOR,URINE DARK YELLOW (Yellow); UA COLLECTION TYPE FOLEY CATH
[2017-07-30 13:01] LABS: BACTERIA,URINE FEW /HPF (Neg); RBC,URINE TNTC /HPF (0-2)
[2017-07-30 13:02] LABS: SQUAMOUS EPITHELIAL CELL,UR NONE SEEN /LPF (FEW); TRANSITIONAL EPI CELLS,URINE FEW /HPF; WBC CLUMPS,URINE FEW /HPF (NEGATIVE)
[2017-07-30 13:03] LABS: HYALINE CASTS 0-3 /LPF (NEGATIVE)
[2017-07-30] MEDS ORDERED: morphine 10mg/ml inj. IV PRN (17:45)
[2017-07-30] MEDS ORDERED: HYDROmorphone 1 mg/ml syringe IV PRN (17:55)
== END 2017-07-30 23:01 | disposition expired | DRG 870 ==
LOC: ER 13:24 → ED HOLD 21:04 → PCU 3S 07-06 13:38 → ICU 2S 07-10 08:56
PROVIDERS: ADMIT Family Medicine
PROC: 5A09457 Assistance with Respiratory Ventilation, 24-96 Consecutive Hours, Continuous Positive Airway Pressure (ICD-10-PCS; 2017-07-07)
PROC: 5A1955Z Respiratory Ventilation, Greater than 96 Consecutive Hours (ICD-10-PCS; principal; 2017-07-10)
PROC: 0BH18EZ Insertion of Endotracheal Airway into Trachea, Via Natural or Artificial Opening Endoscopic (ICD-10-PCS; 2017-07-10)
PROC: 02HV33Z Insertion of Infusion Device into Superior Vena Cava, Percutaneous Approach (ICD-10-PCS; 2017-07-12)
PROC: B548ZZA Ultrasonography of Superior Vena Cava, Guidance (ICD-10-PCS; 2017-07-12)
PROC: 30233N1 Transfusion of Nonautologous Red Blood Cells into Peripheral Vein, Percutaneous Approach (ICD-10-PCS; 2017-07-21)
PROC: 30233N1 Transfusion of Nonautologous Red Blood Cells into Peripheral Vein, Percutaneous Approach (ICD-10-PCS; 2017-07-22)
PROC: 30233N1 Transfusion of Nonautologous Red Blood Cells into Peripheral Vein, Percutaneous Approach (ICD-10-PCS; 2017-07-23)
PROC: 30233N1 Transfusion of Nonautologous Red Blood Cells into Peripheral Vein, Percutaneous Approach (ICD-10-PCS; 2017-07-24)
DX: A41.9 Sepsis, unspecified organism (principal); J96.20 Acute and chronic respiratory failure, unspecified whether with hypoxia or hypercapnia; I63.9 Cerebral infarction, unspecified; I11.0 Hypertensive heart disease with heart failure; G93.40 Encephalopathy, unspecified; E87.4 Mixed disorder of acid-base balance; I50.9 Heart failure, unspecified; J15.212 Pneumonia due to Methicillin resistant Staphylococcus aureus; E87.0 Hyperosmolality and hypernatremia; J44.0 Chronic obstructive pulmonary disease with (acute) lower respiratory infection; J44.1 Chronic obstructive pulmonary disease with (acute) exacerbation; G89.4 Chronic pain syndrome; F32.9 Major depressive disorder, single episode, unspecified; M54.9 Dorsalgia, unspecified; F41.1 Generalized anxiety disorder; J20.9 Acute bronchitis, unspecified; F17.210 Nicotine dependence, cigarettes, uncomplicated; Z66 Do not resuscitate; Z51.5 Encounter for palliative care; Z90.710 Acquired absence of both cervix and uterus; Z99.81 Dependence on supplemental oxygen; Z88.1 Allergy status to other antibiotic agents; Z79.899 Other long term (current) drug therapy; Z82.49 Family history of ischemic heart disease and other diseases of the circulatory system
CPT/HCPCS: 36415; 36569; 36600; 70450; 70544; 70551; 71045; 71046; 71250; 74176; 76937; 80048; 80053; 80061; 80202; 81001; 82570; 82803; 82810; 82948; 83036; 83605; 83735; 83880; 83935; 84100; 84132; 84134; 84145; 84300; 84439; 84443; 84484; 85007; 85018; 85025; 85027; 85610; 85730; 86885; 86900; 86901; 86920; 87040; 87070; 87077; 87088; 87186; 87207; 87324; 87449; 87502; 87503; 93005; 93308; 93880; 93922; 93925; 94002; 94003; 94640; 94660; 94760; 96374; 96375; 97110; 97161; 97530; 99291; A4315; A4333; A6212; A6213; A6257; A6258; A6449; A7015; C1751; C1758; J0153; J0282; J0360; J0713; J1644; J1650; J1720; J1815; J1940; J2060; J2212; J2250; J2270; J2920; J2930; J3370; J3480; J3490; J7030; J7040; J7060; J7512; J7626; J8540; P9016; P9047; Q9963